=== PATIENT | male | born 1955 | race Caucasian/White ===

== ENCOUNTER 2018-11-14 10:29 | Observation (INO) ==
--- NOTE | 2018-11-14 11:06 | Emergency Department Note ---
Disposition Clinical Impression: History of COPD, Obesity, Hypercalcemia, Hypokalemia, Weakness, Renal insufficiency, CAD (coronary artery disease) Disposition: Admitted As Inpatient Forms: ED Satisfaction Letter General Adult HPI - General Chief complaint: ED Weakness Stated complaint: Multiple complaints Time Seen by Provider: 11/14/18 10:47 Source: patient, family Limitations: no limitations - History of Present Illness HPI Narrative: 63-year-old male reports emergency department with his , he states his home health providers recommended he come to the hospital for an evaluation and admission and rehabilitation. The patient states he has been weak for about 7 months. He wanted to go to a mcc prior after hospital discharge but not immediately and after attempting to gain admission to a mcc he reports there is a delay of up to 6-7 weeks. The patient denies any chest pain or acute shortness of breath. He has a history of nighttime oxygen usage. T here is no history of the doubt pain vomiting or acute diarrhea, he describes chronic diarrhea which is been present for 7 months. He reports a few days ago he had a blackened stool but none since. There is no history of vomiting of blood. No syncope. No confusion. No slurred speech or unilateral arm or leg weakness or numbness. No fevers back pain urinary symptoms or recent falls. There is no history of headache or unilateral arm or leg weakness or numbness. No slurred speech or facial drooping. The patient reports he is weak and feels he needs to go to a mcc. Pain Scale: 0 - Related Data Home Medications Medication Instructions Recorded Confirmed Allopurinol [Zyloprim] 300 mg PO 04/19/18 Aspirin 04/19/18 BuPROPion 04/19/18 Calcitriol 0.5 mcg PO 04/19/18 Cilostazol [Pletal] 100 mg PO BID 04/19/18 04/19/18 Dulera 100 Mcg/5 Mcg Inhaler 04/19/18 Ezetimibe [Zetia] 10 mg PO 04/19/18 Furosemide [Lasix] 80 mg PO 04/19/18 Gabapentin [Neurontin] 800 mg PO TID 04/19/18 04/19/18 Guaifenesin 04/19/18 Isosorbide MONOnitrate [Isosorbide 120 mg PO BID 04/19/18 04/19/18 Mononitrate ER] Loratadine 04/19/18 Lovastatin 04/19/18 Metoprolol 04/19/18 Mucinex 04/19/18 Multivit,Th Iron,Other Min 1 PO DAILY 04/19/18 [Therems-M] Multivitamins 04/19/18 Nitrostat 04/19/18 Nitrostat 04/19/18 Nystatin Cream 04/19/18 Omeprazole [PriLOSEC] 20 mg PO DAILY 04/19/18 04/19/18 Plavix 04/19/18 Potassium Chloride [Klor-Con] 04/19/18 Ranexa 04/19/18 Ropinirole HCl [Requip] 0.5 mg PO 04/19/18 Spironolactone 04/19/18 amLODIPine [Norvasc] 04/19/18 Allergies Allergy/AdvReac Type Severity Reaction Status Date / Time doxycycline AdvReac Nausea Verified 11/14/18 10:39 esomeprazole [From Nexium] AdvReac Nausea Verified 11/14/18 10:39 All systems ED: reviewed and negative except as stated. Past Medical History - Past Medical History Medical history: Reports: CHF, COPD, coronary artery disease, DVT, hype rlipidemia, hypertension, peripheral artery disease, renal disease Psychiatric history: Reports: anxiety, depression - Social History Smoking Status: Current every day smoker Smokeless Tobacco Status: No Alcohol use: Reports: none Drug use: Reports: none Physical Exam - General Limitations: no limitations General appearance: alert, in no apparent distress - Head Head exam: atraumatic, normocephalic, normal inspection - Eye Eye exam: Present: normal appearance, PERRL, EOMI - ENT ENT exam: normal exam, normal oropharynx, mucous membranes moist, TM's normal bilaterally, normal external ear exam - Neck Neck exam: Present: normal inspection, full ROM, trachea midline. Absent: tenderness - Chest Chest inspection: Present: symmetric chest wall rise. Absent: tenderness - Respiratory Respiratory exam: Present: prolonged expiratory phase. Absent: respiratory distress, wheezes - Cardiovascular Cardiovascular exam: Present: regular rate, normal rhythm, normal heart sounds - Abdominal Exam Abdominal exam: Present: soft, Non-Tender, normal bowel sounds. Absent: tenderness, distention, guarding, rebound, rigidity - Extremities Exam Extremities exam: Present: normal inspection, full ROM, normal capillary refill. Absent: tenderness, pedal edema, joint swelling, calf tenderness - Back Exam Back exam: Present: normal inspection, full ROM. Absent: tenderness, CVA tenderness (R), CVA tenderness (L), vertebral tenderness - Neurological Exam Neurological exam: Present: alert, oriented X3, CN II-XII intact. Absent: motor sensory deficit - Psychiatric Psychiatric exam: Present: normal affect, normal mood - Skin Skin exam: Present: warm, dry, intact, normal color Course Vital Signs Temperature 97.6 F 11/14/18 10:35 Pulse Rate 88 11/14/18 10:35 Respiratory Rate 22 11/14/18 10:35 Blood Pressure 108/78 11/14/18 10:35 O2 Sat by Pulse Oximetry 97 11/14/18 10:35 Temperature 97.6 F 11/14/18 10:52 Pulse Rate 79 11/14/18 13:11 Respiratory Rate 11 11/14/18 13:11 Blood Pressure 91/73 11/14/18 13:11 O2 Sat by Pulse Oximetry 100 11/14/18 13:11 Oxygen Delivery Oxygen Delivery Room Air Medical Decision Making - MDM Narrative Medical decision making narrative: The patient appears to be stable. He describes an inability to get out of bed and has been weak for the last 6 months. He tried to get into mcc prior but was unable. The patient has no hypocalcemia as well as hypokalemia and potential dehydration. He is currently stable. He prefers to be admitted to the hospital for rehabilitation and mcc placement. I discussed the case with the social media director on-call who reports the patient can be admitted to a mcc based on his insurance but will have to be admitted to the hospital for PT and OT consult first. The patient is highly agreeable. I consult with the hospitalist on-call who has accepted the patient to her care. - Lab Data Result diagrams: 11/14/18 11:30 11/14/18 11:30 Lab Results 11/14/18 11/14/18 11/14/18 Range/Units 11:30 11:30 12:15 WBC 8.7 (4.3-11.1) K/mcL RBC 4.94 (4.19-5.50) M/mcL Hgb 17.3 H (12.9-16.9) g/dL Hct 50.0 (37.5-50.1) % MCV 101.2 H (83.0-100.0) fL MCH 35.0 H (28.0-33.3) pg MCHC 34.6 (31.6-35.5) g/dL RDW 13.8 (11.5-14.5) % Plt Count 105 L (140-400) K/mcL MPV 10.4 (9.4-12.4) fL Immature Gran % 0.2 (0-4) % Seg Neutrophils % 53.1 % Lymphocytes % 34.4 % Monocytes % 9.1 % Eosinophils % 2.7 % Basophils % 0.5 % Neutrophils # 4.6 (1.6-8.9) K/mcL Lymphocytes # 3.0 (0.6-4.6) K/mcL Monocytes # 0.8 (0.0-1.3) K/mcL Eosinophils # 0.2 (0.0-0.6) K/mcL Basophils # 0.0 (0.0-0.2) K/mcL Sodium 136 (136-145) mEq/L Potassium 3.4 L (3.5-5.1) mEq/L Chloride 105 (98-107) mEq/L Carbon Dioxide 24 (23-29) mEq/L BUN 18 (8-23) mg/dL Creatinine 1.43 H (0.70-1.30) mg/dL Est GFR ( Amer) > 60 (> 60) Est GFR (Non-Af Amer) 50 L (> 60) BUN/Creatinine Ratio 13 (6-26) Glucose 124 H (70-105) mg/dL Calculated Osmolality 285 (280-300) Lactic Acid 2.2 (0.5-2.2) mmol/L Calcium 13.2 H* (8.6-10.3) mg/dL Magnesium 1.0 L (1.6-2.6) mg/dL Total Bilirubin 0.7 (0.3-1.0) mg/dL AST 18 (13-39) Units/L ALT 16 (7-52) Units/L Alkaline Phosphatase 121 H (34-104) Units/L Creatine Kinase 24 L (30-223) Units/L Troponin I < 0.03 (< 0.04) ng/mL Serum Total Protein 6.7 (6.4-8.9) g/dL Albumin 3.9 (3.5-5.7) g/dL Globulin 2.8 (2.4-3.5) g/dL Albumin/Globulin Ratio 1.4 (1.1-2.2)
[2018-11-14 11:49] LABS: Basophils % 0.5 %; Eosinophils # 0.2 K/mcL (0.0-0.6); Eosinophils % 2.7 %; Hemoglobin 17.3 g/dL (12.9-16.9); Immature Granulocytes % 0.2 % (0-4); Lymphocytes % 34.4 %; Mean Corpuscular HGB Conc 34.6 g/dL (31.6-35.5); Mean Corpuscular Volume 101.2 fL (83.0-100.0); Mean Platelet Volume 10.4 fL (9.4-12.4); Monocytes # 0.8 K/mcL (0.0-1.3); Monocytes % 9.1 %; Neutrophils # 4.6 K/mcL (1.6-8.9); Platelet Count 105 K/mcL (140-400); Red Blood Count 4.94 M/mcL (4.19-5.50); Red Cell Distribution Width 13.8 % (11.5-14.5); Segmented Neutrophils % 53.1 %
[2018-11-14 12:08] LABS: Troponin I < 0.03 ng/mL (< 0.04)
[2018-11-14 12:17] LABS: Alanine Aminotransferase 16 Units/L (7-52); Albumin 3.9 g/dL (3.5-5.7); Albumin/Globulin Ratio 1.4 (1.1-2.2); Alkaline Phosphatase 121 Units/L (34-104); Aspartate Amino Transferase 18 Units/L (13-39); BUN/Creatinine Ratio 13 (6-26); Bilirubin,Total 0.7 mg/dL (0.3-1.0); Blood Urea Nitrogen 18 mg/dL (8-23); Calcium 13.2 mg/dL (8.6-10.3); Carbon Dioxide 24 mEq/L (23-29); Chloride 105 mEq/L (98-107); Creatine Kinase 24 Units/L (30-223); Globulin 2.8 g/dL (2.4-3.5); Glucose 124 mg/dL (70-105); Osmolality,Calculated 285 (280-300); Potassium 3.4 mEq/L (3.5-5.1); Sodium 136 mEq/L (136-145); Total Protein 6.7 g/dL (6.4-8.9); eGFR For Non-African Americans 50 (> 60)
[2018-11-14] MEDS ORDERED: 0.9 % Sodium Chloride 1,000 ML IVC ONE (13:36)
--- NOTE | 2018-11-14 15:14 | Internal Med History&Physical ---
Date of Encounter: 11/14/18 Time of Encounter: 15:05 Internal Medicine - H&P: HPI Chief complaint: weakness Admitted From: Home Plans for Post Hospital Care: Transfer Snf Facility History of present illness: Mr. Baez is a 63 year old male who has history of Severe PAD, hypertension, gout,left foot presenting emergency room for multiple compliances of diarrhea for several months, productive of cough for weak, severe PAD with bilateral cold feet and hands for few years not a candidate for surgery. He was in [facility] they tried to discharge him to SNF, but he declined. he went home, has been homebound and bedbound over last few months. Now he agrees to go to rehabilitation, wants to be admitted to then go to rehabilitation. Otherwise he complains of diarrhea on and off for several months, 4-5 times daily but not every day. Denies abdominal pain. productive cough denies chest pain shortness of breath. He is on room air. And he is severe PAD bilateral cold feet and hands, But not a candidate for surgery per his vascular surgeon. The plan is admit to patient consult PTOT discharged to SNF. Past Med Surg Social Fam HX - Past Medical History Medical history: CHF, COPD, coronary artery disease, DVT, hyperlipidemia, hype rtension, peripheral artery disease, renal disease Additional medical history: Borderline DM, Polyneuropathy Psychiatric history: anxiety, depression - Past Surgical History Additional surgical history: LEft CEA, Triple vessel CABG, Cholecystectomy, Tonsillectomy, cataract removal, I/D left foot 02/21/2018 - Social History Smoking Status: Current every day smoker Smokeless Tobacco Status: No Alcohol use: none Drug use: none - Family History Father Adopted: No Family Member Ethnicity: Non- Living Status: Still Living Hx Family Cardiac Disorders: Yes Hx Family Respiratory Disorders: No Hx Family Cancer: No Hx Family GI Disorders: No Hx Family Endocrine Disorder: Yes Hx Family Neuromuscular Disorders: No Hx Family Neurologic Disorders: No Hx Family HEENT Disorders: No Hx Family Autoimmune Disorders: No Mother Adopted: No Family Member Ethnicity: Non- Living Status: Hx Family Cardiac Disorders: Yes Hx Family Respiratory Disorders: Yes Hx Family Cancer: No Hx Family GI Disorders: No Hx Family Endocrine Disorder: Yes Hx Family Neuromuscular Disorders: No Hx Family Neurologic Disorders: No Hx Family HEENT Disorders: No Hx Family Autoimmune Disorders: No Internal Medicine - H&P: Meds Allopurinol [Zyloprim] 300 mg PO 04/19/18 [History] Aspirin 04/19/18 [History] BuPROPion 04/19/18 [History] Calcitriol 0.5 mcg PO 04/19/18 [History] Cilostazol [Pletal] 100 mg PO BID 04/19/18 [History] Dulera 100 Mcg/5 Mcg Inhaler 04/19/18 [History] Ezetimibe [Zetia] 10 mg PO 04/19/18 [History] Furosemide [Lasix] 80 mg PO 04/19/18 [History] Gabapentin [Neurontin] 800 mg PO TID 04/19/18 [History] Guaifenesin 04/19/18 [History] Isosorbide MONOnitrate [Isosorbide Mononitrate ER] 120 mg PO BID 04/19/18 [History] Loratadine 04/19/18 [History] Lovastatin 04/19/18 [History] Metoprolol 04/19/18 [History] Mucinex 04/19/18 [History] Multivit,Th Iron,Other Min [Therems-M] 1 PO DAILY 04/19/18 [History] Multivitamins 04/19/18 [History] Nitrostat 04/19/18 [History] Nitrostat 04/19/18 [History] Nystatin Cream 04/19/18 [History] Omeprazole [PriLOSEC] 20 mg PO DAILY 04/19/18 [History] Plavix 04/19/18 [History] Potassium Chloride [Klor-Con] 04/19/18 [History] Ranexa 04/19/18 [History] Ropinirole HCl [Requip] 0.5 mg PO 04/19/18 [History] Spironolactone 04/19/18 [History] amLODIPine [Norvasc] 04/19/18 [History] Allergy/AdvReac Type Severity Reaction Status Date / Time doxycycline AdvReac Nausea Verified 11/14/18 10:39 esomeprazole [From Nexium] AdvReac Nausea Verified 11/14/18 10:39 All Systems PM: A 10-system review of systems was performed and is negative for pertinent findings except as documented above in the HPI. - Constitutional Vitals: Temp Pulse Resp BP Pulse Ox 97.6 F 70 16 122/90 94 11/14/18 10:52 11/14/18 13:52 11/14/18 13:52 11/14/18 13:52 11/14/18 13:52 General appearance: Present: A&O X 3, pleasant, obese Exam: CONSTITUTIONAL: Patient appears as an age appropriate male well developed, in no acute distress. EYES Clear sclerae, bilateral pupils are equal, reactive to light and accommodation. Extraocular movements are intact RESPIRATORY: No accessory muscle use, bilateral clear to auscultation, no wheezing, no crackles/rales. CARDIOVASCULAR: Regular heart rate, normal S1 and S2, no murmurs GASTROINTESTINAL: bowel sounds present, soft, no tenderness. No hepatosplenomeg marylou. No bilateral CVA tenderness MUSCULOSKELETAL: Joints in normal range of motion, no clubbing, no edema, no cyanosis. Bilateral peripheral pulses 2+ LYMPHATIC no lymphadenopathy in neck, groin and axilla bilaterally, no thyromegaly. NEUROLOGIC: CN II to XII are grossly intact, no focal neurological deficit. Deep tendon reflexes 2+ bilaterally. Normal light touch sensation to upper and lower extremity PSYCHIATRIC: Oriented x3, with good insight, mood is euthymic. No hallucinations or delusions. SKIN: Skin warm and dry, no rashes, small open wound to left foot Internal Med - H&P Results - Labs CBC & Chem 7: 11/14/18 11:30 11/14/18 11:30 Labs: Short CBC 11/14/18 Range/Units 11:30 WBC 8.7 (4.3-11.1) K/mcL Hgb 17.3 H (12.9-16.9) g/dL Hct 50.0 (37.5-50.1) % Plt Count 105 L (140-400) K/mcL Neutrophils # 4.6 (1.6-8.9) K/mcL BMP 11/14/18 11:30 Sodium 136 Potassium 3.4 L Chloride 105 Carbon Dioxide 24 BUN 18 Creatinine 1.43 H Glucose 124 H Calcium 13.2 H* Cardiac Enzymes 11/14/18 Range/Units 11:30 Troponin I < 0.03 (< 0.04) ng/mL Liver Function 11/14/18 Range/Units 11:30 Total Bilirubin 0.7 (0.3-1.0) mg/dL AST 18 (13-39) Units/L ALT 16 (7-52) Units/L Alkaline Phosphatase 121 H (34-104) Units/L Albumin 3.9 (3.5-5.7) g/dL - Impressions ITS Impressions Chest X-Ray 11/14/18 10:49 IMPRESSION: 1. No active pulmonary disease. D/ / Brigido Blair MD / Brigido Blair MD Interpreting Provider: Brigido Blair MD Head CT 11/14/18 10:50 IMPRESSION: 1. No acute intracranial abnormality. 2. Mild white matter hypoattenuation likely the sequela of chronic small vessel ischemia. 3. If there is clinical concern for acute ischemia, MRI would be the more sensitive modality. D/ / Jerome Raman / Jerome Raman Interpreting Provider: Jerome Raman - Assessment and plan (1) Weakness Current Visit: Yes Status: Acute Assessment and plan: conuslt pT and OT for SNF (2) Chronic diarrhea Current Visit: Yes Status: Chronic Assessment and plan: Patient has chronic diarrhea for several months on and off 4-5 times daily. But not every day, he denies any weight loss. We will check stool C. difficile and culture (3) Cough Current Visit: Yes Status: Acute Assessment and plan: productive cough, nit negative CXR (4) Hypercalcemia Current Visit: Yes Status: Acute Assessment and plan: will check PTH, IVF, follow up AM (5) PAD (peripheral artery disease) Current Visit: Yes Status: Acute Assessment and plan: severe PAD with cold feet and hands, continue cilostazil (6) History of COPD Current Visit: Yes Status: Acute Assessment and plan: current smoking, not on home O2 (7) Hypokalemia Current Visit: Yes Status: Acute Assessment and plan: will replace (8) CAD (coronary artery disease) Current Visit: Yes Status: Acute Assessment and plan: Continue ASA, STATIN Qualifiers: Coronary Disease-Associated Artery/Lesion type: [place] artery [place] vs. transplanted heart: [place] heart Associated angina: without angina Qualified Code(s): I25.10 - Atherosclerotic heart disease of [place] coronary artery without angina pectoris (9) CKD (chronic kidney disease) stage 3, GFR 30-59 ml/min Current Visit: Yes Status: Acute Assessment and plan: CK D stages 3 kidney function stable, avoid nephrotoxin (10) Hypertension Current Visit: Yes Status: Acute Assessment and plan: Continue home meds Qualifiers: Hypertension type: essential hypertension Qualified Code(s): I10 - Essential (primary) hypertension (11) Smoker Current Visit: Yes Status: Acute Assessment and plan: He smokes one pack a day smoking cessation discussed (12) Morbid obesity with BMI of 50.0-59.9, adult Current Visit: Yes Status: Acute - Time Spent With Patient Total time spent is greater than 50% in coordination of care (as documented) at patient's floor/unit and/or counseling patient:
[2018-11-14] MEDS ORDERED: Naloxone 0.4 MG/ML INJ IVP PRN (15:28)
[2018-11-14] MEDS ORDERED: Gabapentin 400 MG CAPSULE PO PRN (21:20)
--- NOTE | 2018-11-14 21:29 | Electrocardiograph Report ---
[facility] Test Date: 2018-11-14 Pat Name: Garcia Baez Department: EXAM4 Room: 3B13 Gender: M [employer]er: : 1955 Requested By: Elais Cavanaugh Order Number: [id number] Reading MD: Alan Stafford Measurements Intervals Tad Rate: 84 P: -38 [place]: 183 QRS: -32 QRSD: 87 T: 78 QT: 348 QTc: 412 Interpretive Statements Sinus rhythm Left axis deviation Electronically Signed On 11-14-2018 21:27:12 EST by Alan Stafford
[2018-11-14] MEDS ORDERED: Gabapentin 400 MG CAPSULE PO ONE ×2 (21:35→21:45)
[2018-11-14] MEDS: Nicotine 7 MG PATCH.TD24 TD SCH (21:59)
[2018-11-14] MEDS: Ranolazine 500 MG TAB.ER.12H PO SCH (21:59)
[2018-11-14] MEDS: 0.9 % Sodium Chloride 1,000 ML IVC SCH (22:00)
[2018-11-14 22:08] LABS: Bilirubin,Urine Negative (Negative); Blood,Urine Trace (Negative); Clarity,Urine Cloudy (Clear); Color,Urine Yellow (Yellow); Glucose,Urine (UA) Normal (Normal); Ketones,Urine Negative (Negative); Leukocyte Esterase,Urine Large (Negative); Nitrite,Urine Negative (Negative); Protein,Urine Trace mg/dL (Neg-Trace); Specific Gravity,Urine 1.009 (1.010-1.025); Urobilinogen,Urine Normal (Normal)
[2018-11-14 22:11] LABS: Bacteria,Urine Many per hpf (None-Few); Hyaline Casts,Urine None Seen per lpf (None-Few); Squamous Epithelial Cell,Urine None Seen per lpf (None-Few); WBC,Urine TNTC per hpf (0-3)
[2018-11-15 05:05] LABS: Basophils % 0.3 %; Eosinophils # 0.2 K/mcL (0.0-0.6); Eosinophils % 3.8 %; Hematocrit 44.1 % (37.5-50.1); Immature Granulocytes % 0.2 % (0-4); Lymphocytes # 2.3 K/mcL (0.6-4.6); Lymphocytes % 39.5 %; Mean Corpuscular HGB Conc 34.9 g/dL (31.6-35.5); Mean Corpuscular Hemoglobin 35.5 pg (28.0-33.3); Mean Corpuscular Volume 101.6 fL (83.0-100.0); Mean Platelet Volume 10.4 fL (9.4-12.4); Monocytes # 0.5 K/mcL (0.0-1.3); Neutrophils # 2.8 K/mcL (1.6-8.9); Red Blood Count 4.34 M/mcL (4.19-5.50); Red Cell Distribution Width 13.9 % (11.5-14.5); Segmented Neutrophils % 48.2 %
[2018-11-15 05:06] LABS: Hemoglobin 15.4 g/dL (12.9-16.9); Platelet Count 79 K/mcL (140-400)
[2018-11-15 05:25] LABS: BUN/Creatinine Ratio 13 (6-26); Blood Urea Nitrogen 18 mg/dL (8-23); Calcium 11.9 mg/dL (8.6-10.3); Carbon Dioxide 23 mEq/L (23-29); Chloride 107 mEq/L (98-107); Glucose 104 mg/dL (70-105); Osmolality,Calculated 286 (280-300); Potassium 3.2 mEq/L (3.5-5.1); Sodium 137 mEq/L (136-145); eGFR For Non-African Americans 52 (> 60)
[2018-11-15] MEDS: Nicotine 7 MG PATCH.TD24 TD SCH (09:15)
[2018-11-15] MEDS: Ranolazine 500 MG TAB.ER.12H PO SCH ×2 (09:15→20:25)
[2018-11-15] MEDS ORDERED: Ipratropium/Albuterol Neb 3 ML IH PRN (09:58)
--- NOTE | 2018-11-15 11:00 | Internal Med Progress Note ---
<Fatemeh Lester P - Last Filed: 11/15/18 16:22> Hospitalist Progress Note - Encounter Date of Encounter: 11/15/18 Time of Encounter: 08:30 - Subjective Interval History: 63 year old male who has history of hypertension, gout,left foot presenting emergency room for multiple compliances of diarrhea for several months, producti ve of cough for weak, severe PAD with bilateral cold feet and hands. Patient has had diarrhea on and off for last 7 month and he he has had loses stool for 5 times in a day. The patient has history of COPD and he is a chronic smoker, he has productive cough with chest tightness and slight shortness of breath. The the patient wants to go to care home facility after discharge. X-ray chest:No active pulmonary disease. CT head:No acute intracranial abnormality. Labs at ED: White cell count normal, potassium was 3.2, BUN 18 and creatinine 1.39, GFR 52, calcium 11.9. UrinALYSIS suggestive of infection, culture awaited During my bedside visit today, the patient was lying comfortably on the bed, was awake alert, not in acute distress, vitals where stable. He admitted cough and shortness of breath with chest tightness. He has had diarrhea before but he does not have any bowel movement today. He is on 3 L oxygen saturation 96%. ` - Exam Vitals: Temp Pulse Resp BP Pulse Ox 97.6 F 69 19 112/73 96 11/15/18 08:48 11/15/18 08:48 11/15/18 08:48 11/15/18 08:48 11/15/18 08:48 Exam: CONSTITUTIONAL: Patient appears as an age appropriate male well developed, in no acute distress. EYES Clear sclerae, bilateral pupils are equal, reactive to light and accommodation. Extraocular movements are intact RESPIRATORY: No accessory muscle use, bilateral clear to auscultation, the patient has expiratory wheezing. CARDIOVASCULAR: Regular heart rate, normal S1 and S2, no murmurs GASTROINTESTINAL: bowel sounds present, soft, no tenderness. No hepatosplenomegaly. No bilateral CVA tenderness MUSCULOSKELETAL: Joints in normal range of motion, no clubbing, no edema, no cyanosis. Bilateral peripheral pulses 2+ LYMPHATIC no lymphadenopathy in neck, groin and axilla bilaterally, no thyromegaly. NEUROLOGIC: CN II to XII are grossly intact, no focal neurological deficit. Deep tendon reflexes 2+ bilaterally. Normal light touch sensation to upper and lower extremity PSYCHIATRIC: Oriented x3, with good insight, mood is euthymic. No hallucinations or delusions. SKIN: Skin warm and dry, no rashes, small open wound to left foot - Assessment and Plan (1) COPD (chronic obstructive pulmonary disease) Current Visit: Yes Status: Acute Assessment and Plan: Patient is chronic patient of COPD with night time oxygen occasionally , he has tightness in chest with SOB and productive cough he is also a chronic smoker He is on oxygen 3L with sat 96% , he is on DuoNeb nebulizer and albuterol inhaler Progressively better than before. (2) Hypercalcemia Current Visit: Yes Status: Acute Assessment and Plan: The patient has elevated serum calcium, it was 13.2 and now 11.9, It may be due to chronic kidney disease, immobility due to multiple commodities we will check PTH level, recheck serum Calcium tomorrow , continue IV hydration. (3) CKD (chronic kidney disease) Current Visit: Yes Status: Acute Assessment and Plan: The patient is chronic patient of COPD stage III His BUN is 19 and creatinine 1.39 We have consulted repossession agent and put on hold for nephrotoxic medication (4) Frequent loose stools Current Visit: Yes Status: Acute Assessment and Plan: The patient has history of diarrhea/loses stool for 4-5 times daily plus seven- months. He denies any history of wt loss, we will review stool report. Today he doesn't have loose motion. (5) Hypokalemia Current Visit: Yes Status: Acute Assessment and Plan: The patient serum potassium level is 3.2, we have put on potassium suplementation. (6) Weakness Current Visit: Yes Status: Acute Assessment and Plan: The patient has history of generalized weakness, without weight loss. He does have frequent loose stool for a few month. The weakness might be due to persistent loose stool and nutritional & multiple comorbidities. We will re- assess while he is n in patient. We have consulted PT & OT (7) Smoker Current Visit: Yes Status: Acute Assessment and Plan: Chronic smoker, On nicotine patch , counselled quitting smoking (8) Obesity Current Visit: Yes Status: Acute Assessment and Plan: high body weight with BMI 41.3, counselling for weight reduction ,diet and exercise. - Time Spent with Patient Total time spent is greater than 50% in coordination of care (as documented) at patient's floor/unit and/or counseling patient: Internal Medicine: Result - Labs CBC & Chem 7: 11/15/18 04:36 11/15/18 04:36 Labs: Short CBC 11/14/18 11/15/18 Range/Units 11:30 04:36 WBC 8.7 5.9 (4.3-11.1) K/mcL Hgb 17.3 H 15.4 D (12.9-16.9) g/dL Hct 50.0 44.1 (37.5-50.1) % Plt Count 105 L 79 L (140-400) K/mcL Neutrophils # 4.6 2.8 (1.6-8.9) K/mcL BMP 11/14/18 11/15/18 11:30 04:36 Sodium 136 137 Potassium 3.4 L 3.2 L Chloride 105 107 Carbon Dioxide 24 23 BUN 18 18 Creatinine 1.43 H 1.39 H Glucose 124 H 104 Calcium 13.2 H* 11.9 H Cardiac Enzymes 11/14/18 Range/Units 11:30 Troponin I < 0.03 (< 0.04) ng/mL Liver Function 11/14/18 Range/Units 11:30 Total Bilirubin 0.7 (0.3-1.0) mg/dL AST 18 (13-39) Units/L ALT 16 (7-52) Units/L Alkaline Phosphatase 121 H (34-104) Units/L Albumin 3.9 (3.5-5.7) g/dL Urine 11/14/18 Range/Units 21:50 Urine Color Yellow (Yellow) Urine Clarity Cloudy A (Clear) Urine pH 6.0 (5.0-8.0) pH Units Ur Specific [place] 1.009 L (1.010-1.025) Urine Protein Trace (Neg-Trace) mg/dL Urine Glucose (UA) Normal (Normal) mg/dL - Impressions Impressions Chest X-Ray 11/14/18 10:49 IMPRESSION: 1. No active pulmonary disease. D/ / Brigido Blair MD / Brigido Blair MD Interpreting Provider: Brigido Blair MD Head CT 11/14/18 10:50 IMPRESSION: 1. No acute intracranial abnormality. 2. Mild white matter hypoattenuation likely the sequela of chronic small vessel ischemia. 3. If there is clinical concern for acute ischemia, MRI would be the more sensitive modality. D/ / Jerome Raman / Jerome Raman Interpreting Provider: Jerome Raman Consult Discharge Plan - Plan Referrals: Neli Hoover, SAFETY SEALER [Primary Care Provider] - <Jamari Munguia - Last Filed: 11/15/18 16:43> Hospitalist Progress Note - Encounter Date of Encounter: 11/15/18 - Exam Vitals: Temp Pulse Resp BP Pulse Ox 97.3 F L 74 16 107/76 96 11/15/18 11:55 11/15/18 11:55 11/15/18 11:55 11/15/18 11:55 11/15/18 11:55 - Time Spent with Patient Total time spent is greater than 50% in coordination of care (as documented) at patient's floor/unit and/or counseling patient: Internal Medicine: Result - Labs CBC & Chem 7: 11/15/18 04:36 11/15/18 04:36 Labs: Short CBC 11/15/18 Range/Units 04:36 WBC 5.9 (4.3-11.1) K/mcL Hgb 15.4 D (12.9-16.9) g/dL Hct 44.1 (37.5-50.1) % Plt Count 79 L (140-400) K/mcL Neutrophils # 2.8 (1.6-8.9) K/mcL BMP 11/15/18 04:36 Sodium 137 Potassium 3.2 L Chloride 107 Carbon Dioxide 23 BUN 18 Creatinine 1.39 H Glucose 104 Calcium 11.9 H Urine 11/14/18 Range/Units 21:50 Urine Color Yellow (Yellow) Urine Clarity Cloudy A (Clear) Urine pH 6.0 (5.0-8.0) pH Units Ur Specific [place] 1.009 L (1.010-1.025) Urine Protein Trace (Neg-Trace) mg/dL Urine Glucose (UA) Normal (Normal) mg/dL - Attending Attestation I examined this patient and my medical decision-making was reviewed with the Resident Physician Dr. Gilbert. I agree with the documented findings, disposition and treatment plan as described except to the extent set forth below. Mr. Baez is a 63 year old male who has history of Severe PAD, hypertension, gout,left foot presenting emergency room for multiple compliances of diarrhea for several months, productive of cough for weak, severe PAD with bilateral cold feet and hands for few years not a candidate for surgery. He happened to have hypercalcemia with Ca @ 13.2 He denied any CP / SOB. Still feels weak and lethargic. Gen: A, Ao x3 Chest: Diminished BS b/l Heart: S1S2+ RRR No murmurs a/p 1. Acute hypercalcemia mostly due to dehydration and CKD-3 Cont IVF PTH - Normal will check TSH, Vit D 1-25 OH, SPEP and UPEP Nephro consulted 2. Severe PAD resumed all home meds
[2018-11-15] MEDS: Gabapentin 400 MG CAPSULE PO SCH ×4 (11:47→20:26)
[2018-11-15] MEDS: Isosorbide MONOnitrate (24 HR) 60 MG TAB.ER.24H PO SCH ×2 (12:47→20:25)
[2018-11-15] MEDS: Aspirin 325 MG TABLET PO SCH (14:26)
[2018-11-15] MEDS: Metoprolol XL (24 HR) Succ 50 MG TAB.ER.24H PO SCH ×2 (14:26→20:27)
[2018-11-15] MEDS: 0.9 % Sodium Chloride 1,000 ML IVC SCH (14:27)
[2018-11-15] MEDS ORDERED: Furosemide 40 MG TABLET PO SCH (17:00)
[2018-11-15] MEDS ORDERED: Metoprolol XL (24 HR) Succ 50 MG TAB.ER.24H PO SCH (21:00)
[2018-11-15] MEDS ORDERED: Isosorbide MONOnitrate (24 HR) 60 MG TAB.ER.24H PO SCH (21:00)
[2018-11-15] MEDS ORDERED: rOPINIRole 0.25 MG TABLET PO SCH (21:00)
[2018-11-16 04:30] LABS: BUN/Creatinine Ratio 15 (6-26); Blood Urea Nitrogen 18 mg/dL (8-23); Calcium 11.2 mg/dL (8.6-10.3); Carbon Dioxide 23 mEq/L (23-29); Chloride 109 mEq/L (98-107); Creatine Kinase 21 Units/L (30-223); Glucose 92 mg/dL (70-105); Osmolality,Calculated 286 (280-300); Potassium 3.6 mEq/L (3.5-5.1); Sodium 137 mEq/L (136-145); eGFR For Non-African Americans 59 (> 60)
[2018-11-16 04:31] LABS: BUN/Creatinine Ratio 15 (6-26); Blood Urea Nitrogen 18 mg/dL (8-23); Calcium 11.1 mg/dL (8.6-10.3); Carbon Dioxide 22 mEq/L (23-29); Chloride 110 mEq/L (98-107); Glucose 91 mg/dL (70-105); Osmolality,Calculated 285 (280-300); Phosphorous 2.3 mg/dL (2.7-4.5); Potassium 3.6 mEq/L (3.5-5.1); Sodium 137 mEq/L (136-145); eGFR For Non-African Americans > 60 (> 60)
[2018-11-16] MEDS: 0.9 % Sodium Chloride 1,000 ML IVC SCH (05:07)
[2018-11-16] MEDS ORDERED: (Ezetimibe [Ezetimibe] 10 MG) PO SCH (09:00)
[2018-11-16] MEDS ORDERED: (Fluticasone/Vilanterol [Breo Ellipta 200-25 Mcg Inh] IH SCH (09:00)
[2018-11-16] MEDS ORDERED: Spironolactone 25 MG TABLET PO SCH (09:00)
[2018-11-16] MEDS ORDERED: Aspirin 325 MG TABLET PO SCH (09:00)
[2018-11-16] MEDS: Ranolazine 500 MG TAB.ER.12H PO SCH (09:16)
[2018-11-16] MEDS: Isosorbide MONOnitrate (24 HR) 60 MG TAB.ER.24H PO SCH (09:16)
[2018-11-16] MEDS: Aspirin 325 MG TABLET PO SCH (09:17)
[2018-11-16] MEDS: Metoprolol XL (24 HR) Succ 50 MG TAB.ER.24H PO SCH (09:17)
[2018-11-16] MEDS: Gabapentin 400 MG CAPSULE PO SCH ×2 (09:17→14:05)
[2018-11-16] MEDS: Nicotine 7 MG PATCH.TD24 TD SCH (09:17)
--- NOTE | 2018-11-16 10:56 | Discharge Summary ---
<Fatemeh Lester P - Last Filed: 11/16/18 16:21> - NOTES TO OUTPATIENT PROVIDER Notes to Outpatient Provider: *The patient was follow-up with his primary care provider within a week. Orders not resulted at time of discharge: Pending orders 11/14/18 11:30 Culture,Blood [BC] Stat 11/14/18 21:50 Culture,Stool [RM] Routine Culture,Urine [RM] Stat 11/16/18 03:54 Parathormone Related Peptide AM 0400 Protein Electrophoresis AM 0400 Vitamin D 1,25 Dihydroxy AM 0400 Vitamin D 25 Hydroxy AM 0400 11/16/18 10:04 Magnesium Routine Date of Encounter: 11/16/18 Time of Encounter: 10:00 - Discharge Diagnosis (1) COPD (chronic obstructive pulmonary disease) Priority: Primary Status: Chronic Qualifiers: Chronic bronchitis type: unspecified Qualified Code(s): J42 - Unspecified chronic bronchitis (2) Hypercalcemia Priority: Primary Status: Acute (3) UTI (urinary tract infection) Priority: Primary Status: Acute Assessment and Plan: The patient urinalysis was suggestive of Urinary tract infection , Urine culture showed Ecoli We have given him Oral Kflex 500 TID X 5 days. Qualifiers: Urinary tract infection type: acute cystitis Hematuria presence: without hematuria Qualified Code(s): N30.00 - Acute cystitis without hematuria (4) CKD (chronic kidney disease) Priority: Primary Status: Chronic Qualifiers: Qualified Code(s): N18.9 - Chronic kidney disease, unspecified (5) Frequent loose stools Priority: Primary Status: Acute Qualifiers: Diarrhea type: unspecified type Qualified Code(s): R19.7 - Diarrhea, unspecified (6) Hypokalemia Priority: Primary Status: Resolved (7) Weakness Priority: Primary Status: Acute (8) Smoker Priority: Primary Status: Chronic (9) Obesity Priority: Secondary Status: Chronic Qualifiers: Body mass index: BMI 40.0-44.9 Qualified Code(s): E66.01 - Morbid (severe) obesity due to excess calories; Z68.41 - Body mass index (BMI) 40.0-44.9, adult (10) Hypophosphatemia Priority: Primary Status: Acute (11) Hypomagnesemia Priority: Primary Status: Acute Hospital course: Mr. Baez is a 63 year old male with past medical history of hypertension, gout, COPD,obesity, hyperlipidemia, peripheral arterial disease, renal disease, CHF, CAD presented to ED for multiple complaints;loose stool without blood on and off for last 7 month and he has had loose stools for 5 times in a day, productive cough with scanty whitish sputum with chest tightness and shortness of breath ,feeling week and difficulty in ambulating . X-ray chest done in ED didnot show any active pulmonary disease. CT head done in ED didn't show any acute intracranial abnormality. Labs done at ED: Low potassium was 3.2, BUN 18 and creatinine 1.39, GFR 52, calcium 11.9 ,magnesium 1.0, Phosphorus 2.3 <TSH 1.006, PTH intact 12.8 . The patient was admitted for close monitoring and further workup. The patient was treated with IV fluids, potassium supplementation, phosphorus and magnesium supplementation, oxygen and nebulization. PT ,OT and social science research assistant has been involved for the patient care while he was in hospital. The patient has been better, vitals are stable, he does not have new complaints.He doesn't have loose stool now ,he stated that his weakness has been better than before. His potassium has been normalized: 3.6, his renal function has been improved, creatinine 1.1 and BUN 18 GFR > 60, his saturation 95% with 2 L oxygen. The patient wants to go to assisted after discharge from this hospital . We are discharging him today so that he will follow-up with his primary care provider within a week. - Time Spent with Patient Total time spent providing and/or coordinating discharge services: - Discharge Medications Prescriptions: Cephalexin [Keflex] 500 mg PO TID #15 capsule Home Medications: RX: Albuterol Sulfate [Ventolin Hfa] 2 puff IH BID 11/14/18 [History] RX: Allopurinol [Zyloprim 300 MG] 300 mg PO DAILY 11/14/18 [History] RX: Aspirin 325 mg PO DAILY 11/14/18 [History] RX: BuPROPion [Wellbutrin] 100 mg PO DAILY 11/14/18 [History] RX: Calcitriol 0.5 mcg PO BID 11/14/18 [History] RX: Cilostazol [Pletal] 100 mg PO BID 11/14/18 [History] RX: Clobetasol Propionate 0.05% [Temovate] 1 appl TP DAILY PRN 11/14/18 [History] RX: Clopidogrel [Plavix] 75 mg PO DAILY 11/14/18 [History] RX: Ezetimibe 10 mg PO DAILY 11/14/18 [History] RX: Fluticasone/Vilanterol [Breo Ellipta 200-25 Mcg INH] 1 puff IH DAILY 11/14/18 [History] RX: Fluticasone/Vilanterol [Breo Ellipta 200-25 Mcg INH] 1 puff IH DAILY 11/14/18 [History] RX: Furosemide [Lasix] 80 mg PO BID 11/14/18 [History] RX: Gabapentin [Neurontin] 800 mg PO QID 11/14/18 [History] RX: Ipratropium/Albuterol Neb [Duoneb] 3 ml IH Q6HR PRN 11/14/18 [History] RX: Isosorbide MONOnitrate [Isosorbide Mononitrate ER] 120 mg PO BID 11/14/18 [History] RX: Lovastatin 40 mg PO DAILY 11/14/18 [History] RX: Metoprolol Succinate [Toprol Xl] 100 mg PO BID 11/14/18 [History] RX: Multivit,Th Iron,Other Min [Therems-M] 1 tab PO DAILY 11/14/18 [History] RX: Nitroglycerin [Nitrostat] 0.4 mg SL AD PRN 11/14/18 [History] RX: Nystatin POWDER [Nystop] 1 appl TP BID PRN 11/14/18 [History] RX: Omeprazole [PriLOSEC] 20 mg PO DAILY 11/14/18 [History] RX: Potassium Chloride 20 meq PO BID 11/14/18 [History] RX: Ranolazine [Ranexa] 500 mg PO BID 11/14/18 [History] RX: Ropinirole HCl [Requip] 0.5 mg PO HS 11/14/18 [History] RX: Spironolactone [Aldactone] 25 mg PO DAILY 11/14/18 [History] Cephalexin [Keflex] 500 mg PO TID #15 capsule 11/16/18 [Rx] Allergies/Adverse Reactions: Allergy/AdvReac Type Severity Reaction Status Date / Time doxycycline AdvReac Nausea Verified 11/14/18 10:39 esomeprazole [From Nexium] AdvReac Nausea Verified 11/14/18 10:39 Date of admission: 11/14/18 14:12 Primary care physician: Neli Hoover CNP Consults: 11/14/18 15:30 Consult to Occupational Therapy [CONS] Routine Comment: Evaluate, develop and implement POC Reason for Consult: weakness Does patient have active BEDREST order?: No Is patient medically & hemodynamically stable?: Yes Patient assessed for mobility or mobilized this visit?: Yes Consult to Physical Therapy [CONS] Routine Comment: Evaluate, develop and implement POC Reason for Consult: weakness Does patient have active BEDREST order?: No Is patient medically & hemodynamically stable?: Yes Patient assessed for mobility or mobilized this visit?: Yes 11/14/18 17:52 Consult to Certified Coder [CONS] Routine Reason for SW Consult: placement for rehab 11/15/18 11:32 Consult to Nephrology [CONS] Routine Consulting Provider: Kidney Tata/BARBARA/JOS/RALPH Reason for Consult: Hypercalcemia Time Notified: 11:32 Call Completed: Yes - Constitutional Vitals: Temp Pulse Resp BP Pulse Ox 97.9 F 60 18 93/61 95 11/16/18 08:50 11/16/18 08:50 11/16/18 08:50 11/16/18 08:50 11/16/18 08:50 General appearance: Present: A&O X 3, pleasant, no acute distress, obese, answers questions appropriately Exam: CONSTITUTIONAL: Patient appears as an age appropriate male well developed, in no acute distress. EYES Clear sclerae, bilateral pupils are equal, reactive to light and accommodation. Extraocular movements are intact RESPIRATORY: No accessory muscle use, bilateral clear to auscultation, the patient has expiratory wheezing. CARDIOVASCULAR: Regular heart rate, normal S1 and S2, no murmurs GASTROINTESTINAL: bowel sounds present, soft, no tenderness. No hepatosplenomegaly. No bilateral CVA tenderness MUSCULOSKELETAL: Joints in normal range of motion, no clubbing, no edema, no cyanosis. Bilateral peripheral pulses 2+ LYMPHATIC no lymphadenopathy in neck, groin and axilla bilaterally, no thyromegaly. NEUROLOGIC: CN II to XII are grossly intact, no focal neurological deficit. Deep tendon reflexes 2+ bilaterally. Normal light touch sensation to upper and lower extremity PSYCHIATRIC: Oriented x3, with good insight, mood is euthymic. No hallucinations or delusions. SKIN: Skin warm and dry, no rashes, small open wound to left foot - Patient Status Disposition: Transfer SNF Condition: Good Overall status at discharge: patient is progressing back to baseline - Discharge Instructions Follow Up With: Neli Hoover CNP [Primary Care Provider] - 11/22/18 1:00 pm <Jamari Munguia - Last Filed: 11/16/18 16:37> Orders not resulted at time of discharge: Pending orders 11/14/18 11:30 Culture,Blood [BC] Stat 11/14/18 21:50 Culture,Stool [RM] Routine Culture,Urine [RM] Stat 11/16/18 03:54 Parathormone Related Peptide AM 0400 Protein Electrophoresis AM 0400 Vitamin D 1,25 Dihydroxy AM 0400 Vitamin D 25 Hydroxy AM 0400 11/16/18 10:04 Magnesium Routine Date of Encounter: 11/16/18 Hospital course: Mr. Baez is a 63 year old male - Time Spent with Patient Total time spent providing and/or coordinating discharge services: Date of admission: 11/14/18 14:12 Primary care physician: Neli Hoover CNP Consults: 11/14/18 15:30 Consult to Occupational Therapy [CONS] Routine Comment: Evaluate, develop and implement POC Reason for Consult: weakness Does patient have active BEDREST order?: No Is patient medically & hemodynamically stable?: Yes Patient assessed for mobility or mobilized this visit?: Yes Consult to Physical Therapy [CONS] Routine Comment: Evaluate, develop and implement POC Reason for Consult: weakness Does patient have active BEDREST order?: No Is patient medically & hemodynamically stable?: Yes Patient assessed for mobility or mobilized this visit?: Yes 11/14/18 17:52 Consult to Certified Coder [CONS] Routine Reason for SW Consult: placement for rehab 11/15/18 11:32 Consult to Nephrology [CONS] Routine Consulting Provider: Kidney Tata/BARBARA/JOS/RALPH Reason for Consult: Hypercalcemia Time Notified: 11:32 Call Completed: Yes - Constitutional Vitals: Temp Pulse Resp BP Pulse Ox 97.8 F 53 18 98/56 95 11/16/18 11:42 11/16/18 11:42 11/16/18 11:55 11/16/18 11:42 11/16/18 11:55 - Attending Attestation I examined this patient and my medical decision-making was reviewed with the Resident Physician Dr. Gilbert. I agree with the documented findings, disposition and treatment plan as described except to the extent set forth below. Mr. Baez is a 63 year old male who has history of Severe PAD, hypertension, gout,left foot presenting emergency room for multiple compliances of diarrhea for several months, productive of cough for weak, severe PAD with bilateral cold feet and hands for few years not a candidate for surgery. He happened to have hypercalcemia with Ca @ 13.2 He denied any CP / SOB. Patient stated he is feeling better today. Gen: A, Ao x3 Chest: Diminished BS b/l Heart: S1S2+ RRR No murmurs a/p 1. Acute hypercalcemia mostly due to dehydration and CKD-3 PTH - Normal appreciate nephrology recommendations need to follow with data warehousing engineer outpatient 2. Severe PAD resumed all home meds 3. Acute UTI - G-ve rods on Keflex PO Addendum entered and electronically signed by Fatemeh Lester 11/16/18 16:42:
[2018-11-16 11:48] VITALS: BP 98/56
--- NOTE | 2018-11-16 12:19 | Physician Discharge Referral ---
ExtendedCare Referral Info Institutional Level of Care: Skilled - Diagnosis (1) COPD (chronic obstructive pulmonary disease) Priority: Primary Status: Chronic (2) Hypercalcemia Priority: Primary Status: Acute (3) CKD (chronic kidney disease) Priority: Secondary Status: Chronic (4) Frequent loose stools Priority: Primary Status: Acute (5) Hypokalemia Priority: Primary Status: Resolved (6) Weakness Priority: Primary Status: Acute (7) Smoker Priority: Primary Status: Chronic (8) Obesity Priority: Primary Status: Chronic (9) Hypophosphatemia Priority: Primary Status: Acute (10) Hypomagnesemia Priority: Primary Status: Acute - Transfer Medications Home Medications: Albuterol Sulfate [Ventolin Hfa] 2 puff IH BID 11/14/18 [History] Allopurinol [Zyloprim 300 MG] 300 mg PO DAILY 11/14/18 [History] Aspirin 325 mg PO DAILY 11/14/18 [History] BuPROPion [Wellbutrin] 100 mg PO DAILY 11/14/18 [History] Calcitriol 0.5 mcg PO BID 11/14/18 [History] Cilostazol [Pletal] 100 mg PO BID 11/14/18 [History] Clobetasol Propionate 0.05% [Temovate] 1 appl TP DAILY PRN 11/14/18 [History] Clopidogrel [Plavix] 75 mg PO DAILY 11/14/18 [History] Ezetimibe 10 mg PO DAILY 11/14/18 [History] Fluticasone/Vilanterol [Breo Ellipta 200-25 Mcg INH] 1 puff IH DAILY 11/14/18 [History] Fluticasone/Vilanterol [Breo Ellipta 200-25 Mcg INH] 1 puff IH DAILY 11/14/18 [History] Furosemide [Lasix] 80 mg PO BID 11/14/18 [History] Gabapentin [Neurontin] 800 mg PO QID 11/14/18 [History] Ipratropium/Albuterol Neb [Duoneb] 3 ml IH Q6HR PRN 11/14/18 [History] Isosorbide MONOnitrate [Isosorbide Mononitrate ER] 120 mg PO BID 11/14/18 [History] Lovastatin 40 mg PO DAILY 11/14/18 [History] Metoprolol Succinate [Toprol Xl] 100 mg PO BID 11/14/18 [History] Multivit,Th Iron,Other Min [Therems-M] 1 tab PO DAILY 11/14/18 [History] Nitroglycerin [Nitrostat] 0.4 mg SL AD PRN 11/14/18 [History] Nystatin POWDER [Nystop] 1 appl TP BID PRN 11/14/18 [History] Omeprazole [PriLOSEC] 20 mg PO DAILY 11/14/18 [History] Potassium Chloride 20 meq PO BID 11/14/18 [History] Ranolazine [Ranexa] 500 mg PO BID 11/14/18 [History] Ropinirole HCl [Requip] 0.5 mg PO HS 11/14/18 [History] Spironolactone [Aldactone] 25 mg PO DAILY 11/14/18 [History] Allergies/Adverse Reactions: Allergy/AdvReac Type Severity Reaction Status Date / Time doxycycline AdvReac Nausea Verified 11/14/18 10:39 esomeprazole [From Nexium] AdvReac Nausea Verified 11/14/18 10:39 - Respiratory Orders Smoking Cessation: Smoking cessation has been advised. For more information, call the [place] Tobacco Quit Line at 3-315-APFL-NOW. - Advance Directives Code Status: Full Code - Rehabiliation Orders Rehab Potential: Fair - Diet Orders Cardiac CERTIFICATION: I certify that the transfer of the above named patient to an Extended Care Facility is necessary for the continuing treatment of the diagnosis listed. The above information is true and accurate reflection of patient's current condition. Confidential - Redisclosure prohibited without a patient's written consent.
[2018-11-16] MEDS ORDERED: cephALEXin 500 MG CAPSULE PO SCH (13:15)
[2018-11-16] MEDS ORDERED: cefTRIAXone 1,000 MG in Water for inj. (sterile) 20 ML 10 ML IVP SCH (14:00)
--- NOTE | 2018-11-16 14:19 | Nephrology Progress Note ---
Date of Encounter: 11/16/18 Time of Encounter: 14:19 - Assessment and Plan (1) Hypercalcemia Status: Acute Calcium improving. Continue hydration. Ok for outpatient follow-up from a renal standpoint. Will sign off. Please call with questions. Subjective Principal diagnosis: hypercalcemia Interval history: Patient seen. No new complaint. Objective - Vital Signs Vital signs: Vital Signs Temp Pulse Resp BP Pulse Ox 11/16/18 11:42 97.8 F 53 18 98/56 94 11/16/18 08:50 97.9 F 60 18 93/61 95 11/16/18 04:05 97.7 F 59 16 91/66 96 11/15/18 23:45 97.5 F L 78 16 94/56 96 11/15/18 19:59 18 93 11/15/18 19:26 97.8 F 62 16 103/87 94 11/15/18 16:26 98.1 F 66 18 94/62 94 Intake and Output 11/15/18 11/16/18 11/16/18 23:59 07:59 15:59 Intake Total 200 / 200 1000 / 1000 Output Total 250 / 250 Balance -50 / -50 1000 / 1000 Intake: IV Fluids 1000 / 1000 0.9 % Sodium Chloride 1,000 ML 1000 / 1000 @ 75 mls/hr IVC .[id number] KATHRIN Rx #:[id number] Oral 200 / 200 Output: Urine 250 / 250 Other: # Voids 1 Weight 115.3 kg Patient Weight 11/16/18 23:59 Weight 115.3 kg - General Appearance General appearance: Present: well-developed, well-nourished, obese EENT: Present: ATNC - Lab 11/15/18 04:36 11/16/18 03:54 Most recent lab results Calcium 11.1 mg/dL (8.6-10.3) H 11/16/18 03:54 Phosphorus 2.3 mg/dL (2.7-4.5) L 11/16/18 03:54 Magnesium 1.0 mg/dL (1.6-2.6) L 11/14/18 11:30 Consult Discharge Plan - Plan Referrals: Neli Hoover, PLASTICS TECHNICIAN [Primary Care Provider] - 11/22/18 1:00 pm Prescriptions: Cephalexin [Keflex] 500 mg PO TID #15 capsule
--- NOTE | 2018-11-16 14:20 | Nephrology Consult Note ---
Date of Encounter: 11/15/18 Time of Encounter: 14:20 Assessment and Plan (1) Hypercalcemia Status: Acute Patient with multifactorial causes for his hypercalcemia. Hold calcium containing products/supplements. Continue hydration. Discontinue vitamin D supplements. Await work-up including vitamin D and PTH. (2) Morbid obesity with BMI of 50.0-59.9, adult Status: Acute (3) CKD (chronic kidney disease) Status: Chronic Patient with JOSSE on CKD likely from volume depletion. Agree with hydration. Follow creatinine. Qualifiers: Qualified Code(s): N18.9 - Chronic kidney disease, unspecified History of Present Illness - Reason for Consult Consult date: 11/15/18 Acute Kidney Injury - Chief Complaint hypercalcemia - History of Present Illness Mr. Baez is a 63 yo man who presented with multiple complaints. He was found to have hypercalcemia. [facility] was consulted to assist with evaluation and management. Past Med Surg Social Fam HX - Past Medical History Medical history: CHF, COPD, coronary artery disease, DVT, hyperlipidemia, hypertension, peripheral artery disease, renal disease Additional medical history: Borderline DM, Polyneuropathy Psychiatric history: anxiety, depression - Past Surgical History Additional surgical history: LEft CEA, Triple vessel CABG, Cholecystectomy, Tonsillectomy, cataract removal, I/D left foot 02/21/2018 - Social History Smoking Status: Current every day smoker Smokeless Tobacco Status: No Alcohol use: none Drug use: none - Family History Father Adopted: No Family Member Ethnicity: Non- Living Status: Still Living Hx Family Cardiac Disorders: Yes Hx Family Respiratory Disorders: No Hx Family Cancer: No Hx Family GI Disorders: No Hx Family Endocrine Disorder: Yes Hx Family Neuromuscular Disorders: No Hx Family Neurologic Disorders: No Hx Family HEENT Disorders: No Hx Family Autoimmune Disorders: No Mother Adopted: No Family Member Ethnicity: Non- Living Status: Hx Family Cardiac Disorders: Yes Hx Family Respiratory Disorders: Yes Hx Family Cancer: No Hx Family GI Disorders: No Hx Family Endocrine Disorder: Yes Hx Family Neuromuscular Disorders: No Hx Family Neurologic Disorders: No Hx Family HEENT Disorders: No Hx Family Autoimmune Disorders: No Medications and Allergies RX: Albuterol Sulfate [Ventolin Hfa] 2 puff IH BID 11/14/18 [History] RX: Allopurinol [Zyloprim 300 MG] 300 mg PO DAILY 11/14/18 [History] RX: Aspirin 325 mg PO DAILY 11/14/18 [History] RX: BuPROPion [Wellbutrin] 100 mg PO DAILY 11/14/18 [History] RX: Calcitriol 0.5 mcg PO BID 11/14/18 [History] RX: Cilostazol [Pletal] 100 mg PO BID 11/14/18 [History] RX: Clobetasol Propionate 0.05% [Temovate] 1 appl TP DAILY PRN 11/14/18 [History] RX: Clopidogrel [Plavix] 75 mg PO DAILY 11/14/18 [History] RX: Ezetimibe 10 mg PO DAILY 11/14/18 [History] RX: Fluticasone/Vilanterol [Breo Ellipta 200-25 Mcg INH] 1 puff IH DAILY 11/14/18 [History] RX: Fluticasone/Vilanterol [Breo Ellipta 200-25 Mcg INH] 1 puff IH DAILY 11/14/18 [History] RX: Furosemide [Lasix] 80 mg PO BID 11/14/18 [History] RX: Gabapentin [Neurontin] 800 mg PO QID 11/14/18 [History] RX: Ipratropium/Albuterol Neb [Duoneb] 3 ml IH Q6HR PRN 11/14/18 [History] RX: Isosorbide MONOnitrate [Isosorbide Mononitrate ER] 120 mg PO BID 11/14/18 [History] RX: Lovastatin 40 mg PO DAILY 11/14/18 [History] RX: Metoprolol Succinate [Toprol Xl] 100 mg PO BID 11/14/18 [History] RX: Multivit,Th Iron,Other Min [Therems-M] 1 tab PO DAILY 11/14/18 [History] RX: Nitroglycerin [Nitrostat] 0.4 mg SL AD PRN 11/14/18 [History] RX: Nystatin POWDER [Nystop] 1 appl TP BID PRN 11/14/18 [History] RX: Omeprazole [PriLOSEC] 20 mg PO DAILY 11/14/18 [History] RX: Potassium Chloride 20 meq PO BID 11/14/18 [History] RX: Ranolazine [Ranexa] 500 mg PO BID 11/14/18 [History] RX: Ropinirole HCl [Requip] 0.5 mg PO HS 11/14/18 [History] RX: Spironolactone [Aldactone] 25 mg PO DAILY 11/14/18 [History] Cephalexin [Keflex] 500 mg PO TID #15 capsule 11/16/18 [Rx] Allergy/AdvReac Type Severity Reaction Status Date / Time doxycycline AdvReac Nausea Verified 11/14/18 10:39 esomeprazole [From Nexium] AdvReac Nausea Verified 11/14/18 10:39 Review of Systems All Systems: reviewed and no additional remarkable complaints except as stated (as per hpi) Exam - Vital Signs Vital signs: Initial Vital Signs Temp Pulse Resp BP Pulse Ox 97.6 F 88 22 108/78 97 11/14/18 10:35 11/14/18 10:35 11/14/18 10:35 11/14/18 10:35 11/14/18 10:35 Vital Signs - Last 8 Hours Temp Pulse Resp BP Pulse Ox 11/16/18 11:42 97.8 F 53 18 98/56 94 11/16/18 08:50 97.9 F 60 18 93/61 95 Intake and Output 11/15/18 11/16/18 11/16/18 23:59 07:59 15:59 Intake Total 200 / 200 1000 / 1000 Output Total 250 / 250 Balance -50 / -50 1000 / 1000 Intake: IV Fluids 1000 / 1000 0.9 % Sodium Chloride 1,000 ML 1000 / 1000 @ 75 mls/hr IVC .[id number] KATHRIN Rx #:[id number] Oral 200 / 200 Output: Urine 250 / 250 Other: # Voids 1 Weight 115.3 kg Patient Weight 11/16/18 23:59 Weight 115.3 kg - General Appearance General appearance: well-developed, well-nourished EENT: ATNC Neck: supple Gastrointestinal: no tenderness Results - Lab Results 11/15/18 04:36 11/16/18 03:54 Most recent lab results Calcium 11.1 mg/dL (8.6-10.3) H 11/16/18 03:54 Phosphorus 2.3 mg/dL (2.7-4.5) L 11/16/18 03:54 Magnesium 1.0 mg/dL (1.6-2.6) L 11/14/18 11:30 Consult Discharge Plan - Plan Referrals: Neli Hoover CNP [Primary Care Provider] - 11/22/18 1:00 pm Prescriptions: Cephalexin [Keflex] 500 mg PO TID #15 capsule
[2018-11-19 14:58] LABS: Alpha 2 Globulin (PEP) 0.73 g/dL (0.48-1.05); Beta Globulin (PEP) 0.57 g/dL (0.48-1.10)
[2018-11-20 08:28] LABS: IFE Reflexed IFE Done; Immunoglobulin A 158 mg/dL (68-408); Immunoglobulin G 528 mg/dL (768-1632); Immunoglobulin M 62 mg/dL (35-263)
== END 2018-11-16 16:21 ==
LOC: EMEROOARM 10:29 → 3BNU 10:29 → SUATTDRO 14:12 → 3BNU 15:20
PROVIDERS: ADMIT Hospitalist; ATTEND Family Medicine

== ENCOUNTER 2019-01-11 06:06 | Inpatient (IN) ==
[~2019-01-11 06:06] MED LIST: Bupivacaine/Clonidine Syringe 1 EACH SYRINGE IJ ONE
[2019-01-11] MEDS ORDERED: Clindamycin 900 MG/50 ML 900 MG/50 ML IV.SOLN IVPB ONE (06:27)
[2019-01-11] MEDS ORDERED: Albuterol 2.5 MG/3 ML NEBULIZER IH ONE (06:27)
[2019-01-11] MEDS ORDERED: Ringers Solution, Lactated 1,000 ML IVC SCH (06:30)
--- NOTE | 2019-01-11 07:02 | History & Physical Report ---
Date of Encounter: 01/11/19 Time of Encounter: 07:02 24 Hour HP Update - Instructions Instructions: If the History and Physical is less than 30 days old and was completed prior to A.M. admission and or procedure and has NOT been updated on calendar day of procedure please complete this update prior to performing procedure. - Update Patient reports changes in Medical Condition: No Changes in examination, assessment, or condition: No Changes in Medication: No Preop tests/diagnostics Reviewed: Yes Pre-Op MRSA Screen: Negative Surgery Remains Indicated: Yes Consent for Planned Operative Procedure(s) Verified: Yes
[2019-01-11] MEDS ORDERED: Lidocaine -MPF 2% 2 ML VIAL ONE (07:09)
[2019-01-11] MEDS ORDERED: *HR* FentaNYL (PF) 100 MCG/2 ML VIAL ONE (07:09)
[2019-01-11] MEDS ORDERED: Propofol 500 MG/50 ML INFUS..BTL ONE (07:09)
--- NOTE | 2019-01-11 07:20 | Anesthesia Evaluation PreOp ---
Date of Encounter: 01/11/19 Time of Encounter: 07:15 - Past History Planned Operation: Removal infected bone/ulcer/tissue left foot Cardiac History: HTN, Cardiac Surgery (CABG around 1999), Cardiac Stent (many, most recently around 10 years ago) Pulmonary History: Smoker, COPD, COMFORT Dx (does not use CPAP but wears 3-3.5L oxygen at night) MEDICAL SALES SPECIALIST History: Other (peripheral neuropathy, hx CEA) Other Medical History: Renal (ckd), Diabetes Type II (borderline) Anesthesia History: No Prior Anesthetic Complications Alcohol Use: none Drug use: none Medications and Allergies Albuterol Sulfate [Ventolin Hfa] 2 puff IH BID 11/14/18 [History] Allopurinol [Zyloprim 300 MG] 300 mg PO DAILY 11/14/18 [History] Aspirin 325 mg PO DAILY 11/14/18 [History] BuPROPion [Wellbutrin] 100 mg PO DAILY 11/14/18 [History] Calcitriol 0.5 mcg PO BID 11/14/18 [History] Cilostazol [Pletal] 100 mg PO BID 11/14/18 [History] Clobetasol Propionate 0.05% [Temovate] 1 appl TP DAILY PRN 11/14/18 [History] Clopidogrel [Plavix] 75 mg PO DAILY 11/14/18 [History] Ezetimibe 10 mg PO DAILY 11/14/18 [History] Fluticasone/Vilanterol [Breo Ellipta 200-25 Mcg INH] 1 puff IH DAILY 11/14/18 [History] Fluticasone/Vilanterol [Breo Ellipta 200-25 Mcg INH] 1 puff IH DAILY 11/14/18 [History] Furosemide [Lasix] 80 mg PO BID 11/14/18 [History] Gabapentin [Neurontin] 800 mg PO QID 11/14/18 [History] Ipratropium/Albuterol Neb [Duoneb] 3 ml IH Q6HR PRN 11/14/18 [History] Isosorbide MONOnitrate [Isosorbide Mononitrate ER] 120 mg PO BID 11/14/18 [History] Lovastatin 40 mg PO DAILY 11/14/18 [History] Metoprolol Succinate [Toprol Xl] 100 mg PO BID 11/14/18 [History] Multivit,Th Iron,Other Min [Therems-M] 1 tab PO DAILY 11/14/18 [History] Nitroglycerin [Nitrostat] 0.4 mg SL AD PRN 11/14/18 [History] Nystatin POWDER [Nystop] 1 appl TP BID PRN 11/14/18 [History] Omeprazole [PriLOSEC] 20 mg PO DAILY 11/14/18 [History] Potassium Chloride 20 meq PO BID 11/14/18 [History] Ranolazine [Ranexa] 500 mg PO BID 11/14/18 [History] Ropinirole HCl [Requip] 0.5 mg PO HS 11/14/18 [History] Spironolactone [Aldactone] 25 mg PO DAILY 11/14/18 [History] Cephalexin [Keflex] 500 mg PO TID #15 capsule 11/16/18 [Rx] Allergy/AdvReac Type Severity Reaction Status Date / Time doxycycline AdvReac Nausea Verified 01/03/19 14:21 esomeprazole [From Nexium] AdvReac Nausea Verified 01/03/19 14:21 - Meds/Allergy Pre-op Review Medications Reviewed: Yes Allergies Reviewed: Yes Beta Blockers on Current Med List: Yes If Beta Blockers taken, Date/Time (Last Dose taken): held for days Anesthesia Results - Labs Laboratory Tests 12/13/18 01/03/19 01/03/19 10:31 15:16 15:16 WBC 9.0 Hgb 16.1 Hct 48.0 Plt Count 141 Sodium 139 Potassium 3.5 Chloride 105 Carbon Dioxide 22 L BUN 24 H Creatinine 1.28 Est GFR ( Amer) > 60 Est GFR (Non-Af Amer) 57 L BUN/Creatinine Ratio 13 Glucose 98 Est Mean Plasma Glucose Hemoglobin A1c Calculated Osmolality 292 Calcium 10.2 Phosphorus 2.6 L 01/03/19 15:16 WBC Hgb Hct Plt Count Sodium Potassium Chloride Carbon Dioxide BUN Creatinine Est GFR ( Amer) Est GFR (Non-Af Amer) BUN/Creatinine Ratio Glucose Est Mean Plasma Glucose 114 Hemoglobin A1c 5.6 Calculated Osmolality Calcium Phosphorus - Imaging EKG: report reviewed, image reviewed (Sinus rhythm Left axis deviation) Anesthesia Exam Last Vital Signs Temp 97.8 F 01/11/19 06:30 Pulse 72 01/11/19 06:30 Resp 18 01/11/19 06:30 BP 117/78 01/11/19 06:30 Pulse Ox 93 01/11/19 06:30 Weight: 114 kg NPO (# of Hours): > 8 hrs - HEENT Pupil (Motor): Pupils equal, EOMI Mallampati: III Teeth: Edentulous Oral Opening: Greater than 3 - MEDICAL SALES SPECIALIST LOC: Oriented - Cardiac Rhythm: Regular Murmur: None - Pulmonary Breath Sounds: bilateral Clear Respiratory Effort: Symmetrical Anesthesia Assess/Plan ASA Score: 4 Level of consciousness: Cooperative Anesthetic Plan: MAC Monitoring Plan: Standard Monitors Recovery Plan: PACU
[2019-01-11] MEDS ORDERED: Vancomycin 1,000 MG VIAL ONE (07:31)
[2019-01-11] MEDS ORDERED: Bupivacaine/Clonidine Syringe 1 EACH SYRINGE IJ ONE (07:45)
[2019-01-11] MEDS ORDERED: *HR* Propofol 200 MG/20 ML VIAL IVP ONE (09:09)
--- NOTE | 2019-01-11 09:45 | Orthopedic Operative Note ---
Date of procedure: 01/11/19 Pre-op diagnosis: #1: Osteomyelitis first metatarsal phalangeal joint left foot Post-op diagnosis: same Procedure: 01/11/19 09:37 #1: Resection of first metatarsal head for biopsy #2: Sesamoidectomy #3: Excision of ulceration medial left foot #4: Deposition of antibiotic beads Implants: #1: Antibiotic beads/calcium sulfate impregnated with vancomycin Complications: None Anesthesia: MAC, local Local Anesthetics: 0.25% Sensorcaine HCL SubQ (cc) Surgeon: Sergei Caballero Was there an assistant guest services manager present: No Estimated blood loss (cc): 10 Tourniquet Time (Minutes): 0 Specimen: Metatarsal head #1 left foot, tissue cultures swab cultures Condition: stable Disposition: PACU Procedure in Detail: 01/11/19 09:39 Details in summary of procedure: The patient was brought to surgical suite. A sign in procedure was performed. Patient was then transferred to the surgical table positioned properly safely securely. Left foot elevated on a foam block. No tourniquet was used. Patient was then sedated after an anesthetic timeout was taken. Left ankle was then prepped with alcohol 3 times. Ankle block was carried out without difficulty or complication. Left foot was then prepped and draped usual sterile manner. Surgical timeout taken. Inspection of the left foot reveals an ulceration penetrated to the fifth metatarsal phalangeal joint plantar medial aspect. Patient's x-rays were consistent with osteomyelitis acute on chronic. A standard dorsal medial incision was carried out medial to the EHL tendon down subcutaneous tased tissue. Any bleeders encountered were bovied as necessary. Sharp dissection was then continued down to the deep fascia. Gentle retraction afforded visualization of the metatarsal phalangeal joint. Capsulotomy was then performed from distal to proximal. Its great toe was partially dorsally dislocated. Periosteal elevation was undertaken with a #15 scalpel blade through reflect the periosteum as well as the capsular structures off the metatarsal-phalangeal joint dorsally medially and laterally. This afforded visualization of the head of the first metatarsal which was not of normal color texture density with erosions of the mid tarsal phalangeal joint/cartilaginous surfaces on the dorsal medial plantar aspect. Medial sesamoid was not visualized. Lateral sesamoid was eventually sesamoid after resection of the first metatarsal head and the dorsal plantar fashion using a command power saw. The head of the first metatarsal was then sent for culture then pathology. The lateral sesamoid was not of normal color texture density on inspection to 2 had to be resected as well with a pickup and tenotomy scissors. The flexor tendon was noted to be intact throughout dissection. The remaining surfaces of the base of the proximal phalanx that were suspect were debrided with a bone rongeur. Remaining service of the distal portion of the distal metatarsal was remodeled using a Lebron Clement nasal rasp. Satisfied there is no purulent drainage or necrosis or any further suspicious bone the wound was flushed with copious amounts sterile saline. There is a direct sinus tract from the metatars ophalangeal joint to the external ulceration. At that point the left leg was repositioned and externally rotated position. The ulceration on the plantar medial aspect first metatarsal-phalangeal joint was noted to 5 cm similar elliptical incisions were performed to excise the ulceration directly down to the capsule. It was sent for culture. The wound was flushed copious must sterile saline. At that point the remaining capsular structures were reanastomosed with 2-0 Vicryl subcutaneous tased tissue was reanastomosed with 3-0 Vicryl and skin repaired with 3-0 Prolene. Attention was then turned the dorsal aspect of the foot with the original incision was placed any suspicious capsular structures that were infected were debrided as well the wound was flushed again with copious amounts sterile saline. At that point a [employer] ultrasonic debrider was also used to debride the wound. Satisfied we a clean wound without any evidence of infection the wound was packed with antibiotic impregnated beads. Capsular structures were then reanastomosed with 2-0 Vicryl subcutaneous tased tissue reanastomosed with 3-0 Vicryl and skin repaired with 3-0 Prolene. No complications ensued. Wound was sprayed with PRP prior to closure. Hemostasis was achieved. Dressing was applied Adaptic 4 by 4's, Kerlix compression dressing. Capillary rebound time less than 3 seconds to all toes. No complications patient then sent to PACU in good condition with vital signs stable S May blood loss less than 10 mL
[2019-01-11] MEDS ORDERED: Ipratropium/Albuterol Neb 3 ML IH PRN (13:50)
[2019-01-11] MEDS ORDERED: Clobetasol Propionate 0.05% 15 GM Cream Tube TP PRN (13:50)
--- NOTE | 2019-01-11 13:55 | Internal Medicine Consult Note ---
Date of Encounter: 01/11/19 Time of Encounter: 14:20 - Assessment and Plan (1) Osteomyelitis of toe Current Visit: Yes Status: Acute Assessment and plan: Acute osteomyelitis involving the left great toe. Failed outpatient treatment and so patient underwent surgery today. With implantation of antibiotic beads. Podiatry following. We will continue to follow the recommendations. (2) CAD (coronary artery disease) Current Visit: Yes Status: Chronic Assessment and plan: Patient with history of coronary artery disease status post CABG and stents. Continue Plavix, statin. No chest pain at this time. Qualifiers: Coronary Disease-Associated Artery/Lesion type: [place] artery [place] vs. transplanted heart: [place] heart Associated angina: without angina Qualified Code(s): I25.10 - Atherosclerotic heart disease of [place] coronary artery without angina pectoris (3) CKD (chronic kidney disease) stage 3, GFR 30-59 ml/min Current Visit: Yes Status: Chronic Assessment and plan: Will obtain basic panel. Monitor renal function closely. Avoid nephrotoxic agents. (4) COPD (chronic obstructive pulmonary disease) Current Visit: Yes Status: Chronic Assessment and plan: not in acute exacerbation. Use bronchodilators as needed. Qualifiers: Chronic bronchitis type: unspecified Qualified Code(s): J42 - Unspecified chronic bronchitis (5) Hypertension Current Visit: Yes Status: Chronic Assessment and plan: Patient is on metoprolol, Imdur and Lasix. Will continue. Qualifiers: Hypertension type: essential hypertension Qualified Code(s): I10 - Essential (primary) hypertension (6) PAD (peripheral artery disease) Current Visit: Yes Status: Acute Assessment and plan: Patient with history of PAD. We will continue Plavix, statin and Pletal - Summary of Assessment and Plan Summary of Assessment and Plan: DVT prophylaxis With subcutaneous heparin - Time Spent With Patient Total time spent is greater than 50% in coordination of care (as documented) at patient's floor/unit and/or counseling patient: Internal Medicine - CN: HPI - Data of Consult Patient: known to practice within the last 3 years Consult date: 01/11/19 Requesting Physician: Sergei Caballero, - Consult Narrative Reason for consult: Med management History of present illness: Mr. Baez is a 63 year old male patient with history of CAD, PAD, osteomyelitis involving his left foot great toe is presently admitted post op after resection of first metatarsal head/ sesamoidectomy, deposition of antibiotic beads. We were consulted for med management. At this time patient mainly complains of neuropathy pain in his upper extremities. He denies any chest pain or palpitations. No recent episodes of fever or chills. Patient had previously completed intravenous antibiotics through PICC line. He states that his been dealing with this infection of his foot for about 21 months now. He states that he does not have a history of diabetes. He does however have peripheral arterial disease and was recommended bypass grafting but given his cardiac history, he was not cleared for surgery. He presently takes Plavix and Pletal. Past Med Surg Social Fam HX - Past Medical History Attestation: Yes The following information was validated with the patient. Source: patient Medical history: CHF, COPD, coronary artery disease, DVT, hyperlipidemia, hypertension, peripheral artery disease, renal disease Additional medical history: Borderline DM, Polyneuropathy Psychiatric history: anxiety, depression - Past Surgical History Surgical History: cataract Additional surgical history: LEft CEA, Triple vessel CABG, Cholecystectomy, Tonsillectomy, cataract removal, I/D left foot 02/21/2018 - Social History Smoking Status: Current every day smoker Packs per day: 1 Smokeless Tobacco Status: No Alcohol use: none Drug use: none - Family History Father Adopted: No Family Member Ethnicity: Non- Living Status: Still Living Hx Family Cardiac Disorders: Yes Hx Family Respiratory Disorders: No Hx Family Cancer: No Hx Family GI Disorders: No Hx Family Endocrine Disorder: Yes Hx Family Neuromuscular Disorders: No Hx Family Neurologic Disorders: No Hx Family HEENT Disorders: No Hx Family Autoimmune Disorders: No Mother Adopted: No Family Member Ethnicity: Non- Living Status: Hx Family Cardiac Disorders: Yes Hx Family Respiratory Disorders: Yes Hx Family Cancer: No Hx Family GI Disorders: No Hx Family Endocrine Disorder: Yes Hx Family Neuromuscular Disorders: No Hx Family Neurologic Disorders: No Hx Family HEENT Disorders: No Hx Family Autoimmune Disorders: No - Constitutional Constitutional: no anorexia, no chills, no fever(s), no falls - Cardiovascular Cardiovascular ROS IM: no chest pain, no dyspnea, no dyspnea on exertion, no orthopnea, no palpitations, no paroxysmal nocturnal dyspnea - Respiratory Respiratory: no cough, no dyspnea, no dyspnea on exertion, no wheezing - Gastrointestinal Gastrointestinal: no abdominal pain, no diarrhea, no nausea, no vomiting - Musculoskeletal Musculoskeletal ROS IM: no atrophy, no deformity, no muscle cramps, no muscle weakness, no myalgias - Integumentary Integumentary IM: non-healing lesions, no new lesions, no rash - Neurological Neurological ROS: numbness, paresthesias, tingling, no confusion - Psychiatric Psychiatric: no behavioral changes, no confusion, no depression Internal Medicine - CN: Meds Albuterol Sulfate [Ventolin Hfa] 2 puff IH BID 11/14/18 [History] Allopurinol [Zyloprim 300 MG] 300 mg PO DAILY 11/14/18 [History] BuPROPion [Wellbutrin] 100 mg PO DAILY 11/14/18 [History] Calcitriol 0.5 mcg PO BID 11/14/18 [History] Cilostazol [Pletal] 100 mg PO BID 11/14/18 [History] Clobetasol Propionate 0.05% [Temovate] 1 appl TP DAILY PRN 11/14/18 [History] Clopidogrel [Plavix] 75 mg PO DAILY 11/14/18 [History] Ezetimibe 10 mg PO DAILY 11/14/18 [History] Fluticasone/Vilanterol [Breo Ellipta 200-25 Mcg INH] 1 puff IH DAILY 11/14/18 [History] Furosemide [Lasix] 80 mg PO BID 11/14/18 [History] Gabapentin [Neurontin] 800 mg PO 0800,1300,1800,2300 11/14/18 [History] Ipratropium/Albuterol Neb [Duoneb] 3 ml IH Q6HR PRN 11/14/18 [History] Lovastatin 40 mg PO DAILY 11/14/18 [History] Metoprolol Succinate [Toprol Xl] 100 mg PO BID 11/14/18 [History] Multivit,Th Iron,Other Min [Therems-M] 1 tab PO DAILY 11/14/18 [History] Nitroglycerin [Nitrostat] 0.4 mg SL AD PRN 11/14/18 [History] Omeprazole [PriLOSEC] 20 mg PO DAILY 11/14/18 [History] Potassium Chloride 20 meq PO BID 11/14/18 [History] Ranolazine [Ranexa] 500 mg PO BID 11/14/18 [History] Ropinirole HCl [Requip] 0.5 mg PO HS 01/08/19 [History] Isosorbide MONOnitrate (24 HR) [Imdur] 60 mg PO BID 01/11/19 [History] Mometasone/Formoterol [Dulera 200 Mcg/5 Mcg Inhaler] 2 puff PO BID 01/11/19 [History] Allergy/AdvReac Type Severity Reaction Status Date / Time doxycycline AdvReac Nausea Verified 01/11/19 07:29 esomeprazole [From Nexium] AdvReac Nausea Verified 01/11/19 07:29 Hospitalist - CN: Exam - Constitutional Vitals: Temp Pulse Resp BP Pulse Ox 97.9 F 60 16 131/88 93 01/11/19 13:10 01/11/19 13:10 01/11/19 13:10 01/11/19 13:10 01/11/19 13:10 General appearance IM: Present: cooperative, A&O X 3, answers questions appropriately Exam: General: Patient is alert, mild distress, oriented x 3, ,obese Head: atraumatic, normocephalic, Neck: normal inspection, trachea midline, full ROM, no carotid bruits Chest: normal inspection, symmetric chest rise Respiratory: Good respiratory effort. Normal breath sounds. No wheezing or crackles. Cardiovascular: Regular rate and rhythm. s1 and s2 normal No clicks, rubs, gallops, or murmurs. No pedal edema Abdomen: Abdomen is soft, nontender. Bowel sounds are present Musculoskeletal: Spontaneously moving all extremities , left foot currently bandaged. Skin: warm, dry, intact. Neuro: Alert oriented x 3 normal cranial nerves, no focal deficits Psych: Patient's affect is normal Internal Medicine - CN: Reslt - Impressions Impressions Foot X-Ray 01/11/19 00:00 IMPRESSION: Status post 1st metatarsal osteotomy with anatomic alignment of the 1st digit and immature bone packing material at the osteotomy site. D/ / 01/11/2019 12:04:28 Alejandro Curry MD / kori Interpreting Provider: Alejandro Curry MD Consult Discharge Plan - Plan Referrals: Neli Hoover EARTH AUGER OPERATOR [Primary Care Provider] -
[2019-01-11] MEDS ORDERED: Dextrose 4 GM Chewable Tablets PO PRN ×2 (13:56)
[2019-01-11] MEDS ORDERED: D5% in Water 1,000 ML IVC PRN (13:56)
[2019-01-11] MEDS ORDERED: *HR* Dextrose 50 % in Water (Syg) 50 ML SYRINGE IVP PRN (13:56)
[2019-01-11] MEDS ORDERED: Dextrose Gel 15 GM/37.5 ML TUBE PO PRN ×2 (13:56)
[2019-01-11] MEDS: Gabapentin 400 MG CAPSULE PO SCH ×3 (15:32→23:45)
[2019-01-11] MEDS: Piperacillin/Tazobactam 3.375 GM in 0.9 % Sodium Chloride Mini Bag 100 ML IVPB SCH ×2 (15:33→23:46)
[2019-01-11 16:08] LABS: Estimated Average Glucose 114 mg/dl; Hemoglobin A1C 5.6 %
[2019-01-11] MEDS ORDERED: Insulin LISPRO 300 UNITS/3 ML VIAL SQ SCH ×2 (16:30→21:00)
[2019-01-11] MEDS: Furosemide 40 MG TABLET PO SCH (17:38)
[2019-01-11] MEDS: Metoprolol XL (24 HR) Succ 50 MG TAB.ER.24H PO SCH (20:23)
[2019-01-11] MEDS: Isosorbide MONOnitrate (24 HR) 60 MG TAB.ER.24H PO SCH (20:24)
[2019-01-11] MEDS: Ranolazine 500 MG TAB.ER.12H PO SCH (20:24)
[2019-01-11] MEDS: rOPINIRole 0.25 MG TABLET PO SCH (20:24)
[2019-01-11] MEDS: Budesonide/Formoterol 160/4.5 1 PUFF INH IH SCH (22:36)
[2019-01-12 05:20] LABS: Basophils % 0.5 %; Eosinophils # 0.5 K/mcL (0.0-0.6); Eosinophils % 6.2 %; Hematocrit 43.1 % (37.5-50.1); Hemoglobin 14.8 g/dL (12.9-16.9); Immature Granulocytes % 0.3 % (0-4); Lymphocytes % 25.2 %; Mean Corpuscular HGB Conc 34.3 g/dL (31.6-35.5); Mean Corpuscular Hemoglobin 35.1 pg (28.0-33.3); Mean Corpuscular Volume 102.1 fL (83.0-100.0); Mean Platelet Volume 9.7 fL (9.4-12.4); Monocytes # 0.7 K/mcL (0.0-1.3); Monocytes % 8.3 %; Neutrophils # 4.7 K/mcL (1.6-8.9); Platelet Count 114 K/mcL (140-400); Red Blood Count 4.22 M/mcL (4.19-5.50); Red Cell Distribution Width 14.2 % (11.5-14.5); Segmented Neutrophils % 59.5 %
[2019-01-12 05:35] LABS: BUN/Creatinine Ratio 13 (6-26); Blood Urea Nitrogen 14 mg/dL (8-23); C-Reactive Protein 10 mg/L (Less than 10); Calcium 9.1 mg/dL (8.6-10.3); Carbon Dioxide 24 mEq/L (23-29); Chloride 107 mEq/L (98-107); Glucose 96 mg/dL (70-105); Osmolality,Calculated 288 (280-300); Sodium 139 mEq/L (136-145); eGFR For Non-African Americans > 60 (> 60)
[2019-01-12] MEDS: Isosorbide MONOnitrate (24 HR) 60 MG TAB.ER.24H PO SCH ×2 (07:25→21:03)
[2019-01-12] MEDS: Metoprolol XL (24 HR) Succ 50 MG TAB.ER.24H PO SCH (07:26)
[2019-01-12] MEDS: Furosemide 40 MG TABLET PO SCH ×2 (07:26→16:02)
[2019-01-12] MEDS: Ranolazine 500 MG TAB.ER.12H PO SCH ×2 (07:34→21:02)
[2019-01-12] MEDS: Multivit/Ca/Min/Fe/FA 1 TAB TABLET PO SCH (07:34)
[2019-01-12] MEDS: Piperacillin/Tazobactam 3.375 GM in 0.9 % Sodium Chloride Mini Bag 100 ML IVPB SCH ×2 (07:44→15:58)
[2019-01-12] MEDS: Budesonide/Formoterol 160/4.5 1 PUFF INH IH SCH ×2 (07:58→22:17)
[2019-01-12] MEDS ORDERED: (Ezetimibe [Ezetimibe] 10 MG) PO SCH (09:00)
[2019-01-12] MEDS ORDERED: (Fluticasone/Vilanterol [Breo Ellipta 200-25 Mcg Inh] IH SCH (09:00)
[2019-01-12] MEDS: Gabapentin 400 MG CAPSULE PO SCH ×4 (10:29→23:47)
[2019-01-12] MEDS: Nicotine 21 MG PATCH.TD24 TD SCH (10:34)
--- NOTE | 2019-01-12 12:54 | Internal Med Progress Note ---
Hospitalist Progress Note - Encounter Date of Encounter: 01/12/19 Time of Encounter: 12:51 - Subjective Interval History: Patient seen and examined at bedside. Patient states that he feels pretty good today. He is upset that he is on a restricted diet. He denies any foot pain, fever, chills. - Exam Vitals: Temp Pulse Resp BP Pulse Ox 97.5 F L 71 14 98/65 91 01/12/19 10:44 01/12/19 10:44 01/12/19 10:44 01/12/19 10:44 01/12/19 10:44 Exam: Heart: Regular rate and rhythm, no murmurs, rubs, gallops Lungs: Clear to auscultation bilaterally, no rales, rhonchi, wheezes Extremity: Left foot: Dressing clean dry and intact - Assessment and Plan (1) Osteomyelitis of toe Current Visit: Yes Status: Acute Assessment and Plan: Intraoperative evidence of osteomyelitis status post resection. Postop day 1. Cultures pending. Currently on IV antibiotics. Discussed with podiatry nurse practitioner, patient may need long-term antibiotics. Further management per primary podiatry service (2) CAD (coronary artery disease) Current Visit: Yes Status: Chronic Assessment and Plan: Stable. No chest pain at this time. Continue beta syed, Plavix (3) PAD (peripheral artery disease) Current Visit: Yes Status: Chronic Assessment and Plan: No acute changes at this time. Continue Plavix, Pletal (4) CKD (chronic kidney disease) stage 3, GFR 30-59 ml/min Current Visit: Yes Status: Chronic Assessment and Plan: Renal function good today at this time GFR is greater than 60 over baseline GFR appears to be in the mid 50s. Good urine output. Continue to monitor. (5) Hypertension Current Visit: Yes Status: Chronic Assessment and Plan: Blood pressure borderline low. Asymptomatic. Apparently the patient has been taking Toprol-XL 50 mg twice a day we will cut back to daily. (6) COPD (chronic obstructive pulmonary disease) Current Visit: Yes Status: Chronic Assessment and Plan: Patient asymptomatic at this time. Not in acute exacerbation. Continue home inhalers. - Time Spent with Patient Total time spent is greater than 50% in coordination of care (as documented) at patient's floor/unit and/or counseling patient: Internal Medicine: Result - Labs CBC & Chem 7: 01/12/19 04:41 01/12/19 04:41 Labs: Short CBC 01/12/19 Range/Units 04:41 WBC 7.9 (4.3-11.1) K/mcL Hgb 14.8 (12.9-16.9) g/dL Hct 43.1 (37.5-50.1) % Plt Count 114 L (140-400) K/mcL Neutrophils # 4.7 (1.6-8.9) K/mcL BMP 01/12/19 04:41 Sodium 139 Potassium 3.0 L Chloride 107 Carbon Dioxide 24 BUN 14 Creatinine 1.06 Glucose 96 Calcium 9.1 - Impressions Impressions Foot X-Ray 01/11/19 00:00 IMPRESSION: Status post 1st metatarsal osteotomy with anatomic alignment of the 1st digit and immature bone packing material at the osteotomy site. D/ / 01/11/2019 12:04:28 Alejandro Curry MD / kori Interpreting Provider: Alejandro Curry MD Consult Discharge Plan - Plan Referrals: Neli Hoover, AERIAL LINEMAN [Primary Care Provider] - (2) CAD (coronary artery disease) Qualifiers: Coronary Disease-Associated Artery/Lesion type: [place] artery [place] vs. transplanted heart: [place] heart Associated angina: without angina Qualified Code(s): I25.10 - Atherosclerotic heart disease of [place] coronary artery without angina pectoris (5) Hypertension Qualifiers: Hypertension type: essential hypertension Qualified Code(s): I10 - Essential (primary) hypertension (6) COPD (chronic obstructive pulmonary disease) Qualifiers: COPD type: chronic bronchitis Chronic bronchitis type: unspecified Qualified Code(s): J42 - Unspecified chronic bronchitis
[2019-01-12] MEDS ORDERED: Insulin LISPRO 300 UNITS/3 ML VIAL SQ SCH ×2 (16:30→21:00)
--- NOTE | 2019-01-12 16:31 | Podiatry Progress Note ---
Date of Encounter: 01/12/19 Time of Encounter: 16:00 - Assessment and Plan (1) Osteomyelitis of toe Current Visit: Yes Status: Acute Assessment: s/p day #1 resection of first metatarsal head for biopsy, sesamoidectomy, excision of ulceration medial left foot, deposition of antibiotic beads Incision well approximated both medial aspect and dorsal aspect of foot No erythema, no edema, no drainage, no signs of dehiscence, no signs of infection noted WBC 7.9 Surgical biopsy of left great toe and left foot pending Anaerobic culture of left great toe and left foot pending Wound culture of left great toe pending Plan: Cleansed with 0.9 NS. Covered incision with adaptic, 4x4 dry gauze, and kerlex. Secured with paper tape. Do not change dressing. Awaiting cultures Will consider ID consult for ATB management once cultures returned Patient refused CAM walker boot. Recommend patient use CAM boot for stability Use surgical shoe when ambulating if not wearing CAM boot. Subjective Interval history: Patient awake in bed. Reports he is ready to go home. States he will leave AMA Tuesday if he is unable to get discharged. States he will come back if needs IV antibiotics. Patient denies any fevers, chills, nausea, vomiting, or diarrhea. Denies chest pain, calf pain, or shortness of breath. No other questions or concerns at this time. Objective - Vital Signs Vital Signs: Vital Signs Temp Pulse Resp BP Pulse Ox 01/12/19 14:37 97.6 F 74 14 84/50 94 01/12/19 10:44 97.5 F L 71 14 98/65 91 01/12/19 08:00 17 92 01/12/19 05:01 98.1 F 71 14 84/59 90 01/12/19 00:28 97.6 F 68 14 95/66 93 01/11/19 22:36 15 95 01/11/19 19:34 98.0 F 78 14 110/49 94 Intake and Output 01/12/19 01/12/19 01/12/19 07:59 15:59 23:59 Intake Total 100 / 100 460 / 460 Output Total 0 / 0 Balance 100 / 100 460 / 460 Intake: IV Fluids 100 / 100 100 / 100 Zosyn 3.375 GM In 0.9 % Sodium 100 / 100 100 / 100 Chloride (Mini-Bag +) 100 ML @ 25 mls/hr IVPB Q8HR [facility] Rx#: [id number] Oral 360 / 360 Output: Urine 0 / 0 Other: Meal Lunch Percent of Meal Consumed 10% Stool Size Moderate Large Large Stool Consistency liquid liquid liquid Stool Color Brown Brown Brown # Voids 1 1 # Urine Diapers 0 # Bowel Movements 0 1 # Bowel Movement Diapers 0 Weight 124.1 kg Patient Weight 01/12/19 23:59 Weight 124.1 kg - Exam Exam: Constitiutional: Alert and oriented x 3. Well nourished. No acute distress noted Vascular: 1/ DP/PT LLE, CFT <3 sec to all digits LLE, warm to warm from tibia to toes LLE, no calf pain with squeeze LLE Neurologic: Diminished sensation to touch, normal plantar response, abnormal position sense dorsiflexion/plantar flexion Dermatologic: Incision noted to right 1st metatarsal medial aspect of foot and dorsal aspect of foot. Incision well approximated. No signs of drainage. No erythema or edema noted. No signs of infection noted. Musculoskeletal: 3/5 muscle strength and normal tone LLE. - Lab Result Diagrams: 01/12/19 04:41 01/12/19 04:41 Labs: Abnormal lab results MCV 102.1 fL (83.0-100.0) H 01/12/19 04:41 MCH 35.1 pg (28.0-33.3) H 01/12/19 04:41 Plt Count 114 K/mcL (140-400) L 01/12/19 04:41 ESR 48 mm/hr (0-10) H 01/12/19 04:41 Potassium 3.0 mEq/L (3.5-5.1) L 01/12/19 04:41 POC Glucose 120 mg/dL (70-99) H 01/11/19 21:37 C-Reactive Protein 10 mg/L (Less than 10) H 01/12/19 04:41 Microbiology, Last 48 Hours 01/11/19 08:25 Surgical Biopsy Culture - Preliminary Left Great Toe 01/11/19 08:47 Surgical Biopsy Culture - Preliminary Left Foot 01/11/19 08:47 Anaerobic Culture - Preliminary Left Foot Culture is incubating. 01/11/19 08:25 Wound Culture - Preliminary Left Great Toe Culture is incubating. 01/11/19 08:25 Anaerobic Culture - Preliminary Left Great Toe Culture is incubating. Consult Discharge Plan - Plan Referrals: Neli Hoover CNP [Primary Care Provider] -
[2019-01-12] MEDS: rOPINIRole 0.25 MG TABLET PO SCH (21:05)
[2019-01-13] MEDS: Piperacillin/Tazobactam 3.375 GM in 0.9 % Sodium Chloride Mini Bag 100 ML IVPB SCH ×4 (00:35→23:53)
[2019-01-13] MEDS: Budesonide/Formoterol 160/4.5 1 PUFF INH IH SCH ×2 (07:54→20:43)
[2019-01-13] MEDS: Furosemide 40 MG TABLET PO SCH ×2 (10:05→17:48)
[2019-01-13] MEDS: Isosorbide MONOnitrate (24 HR) 60 MG TAB.ER.24H PO SCH ×2 (10:05→20:21)
[2019-01-13] MEDS: Metoprolol XL (24 HR) Succ 50 MG TAB.ER.24H PO SCH (10:05)
[2019-01-13] MEDS: Ranolazine 500 MG TAB.ER.12H PO SCH ×2 (10:05→20:20)
[2019-01-13] MEDS: Multivit/Ca/Min/Fe/FA 1 TAB TABLET PO SCH (10:05)
[2019-01-13] MEDS: Gabapentin 400 MG CAPSULE PO SCH ×4 (10:07→23:53)
[2019-01-13] MEDS: Nicotine 21 MG PATCH.TD24 TD SCH (10:13)
--- NOTE | 2019-01-13 11:03 | Internal Med Progress Note ---
Hospitalist Progress Note - Encounter Date of Encounter: 01/13/19 Time of Encounter: 11:01 - Subjective Interval History: Patient seen and examined at bedside. Patient states that he feels okay today. He reports he is shaky and pain all over because he has not received his Ranexa yet this morning. Otherwise has no complaints. He does report pain at his surgical site. Denies fever, chills. - Exam Vitals: Temp Pulse Resp BP Pulse Ox 98.2 F 75 16 93/54 95 01/13/19 04:00 01/13/19 04:00 01/13/19 07:54 01/13/19 04:00 01/13/19 07:54 Exam: Heart: Regular rate and rhythm, no murmurs, rubs, gallops Lungs: Clear to auscultation bilaterally, no rales, rhonchi, wheezes Extremity: Left foot: Dressing clean dry and intact - Assessment and Plan (1) Osteomyelitis of toe Current Visit: Yes Status: Acute Assessment and Plan: Intraoperative evidence of osteomyelitis status post resection. Postop day 2. Cultures preliminary positive for multiple organisms, final ID pending. Currently on IV antibiotics. Long-term antibiotics per podiatry service. Fu rther management per primary podiatry service (2) CAD (coronary artery disease) Current Visit: Yes Status: Chronic Assessment and Plan: Stable. No chest pain at this time. Continue beta syed, Plavix (3) PAD (peripheral artery disease) Current Visit: Yes Status: Chronic Assessment and Plan: No acute changes at this time. Continue Plavix, Pletal (4) CKD (chronic kidney disease) stage 3, GFR 30-59 ml/min Current Visit: Yes Status: Chronic Assessment and Plan: No labs today. Check BMP in the morning. No complaints, urinating normally (5) Hypertension Current Visit: Yes Status: Chronic Assessment and Plan: Blood pressure borderline low. Asymptomatic. Continue Toprol-XL 50mg daily. (6) COPD (chronic obstructive pulmonary disease) Current Visit: Yes Status: Chronic Assessment and Plan: Patient asymptomatic at this time. Not in acute exacerbation. Continue home inhalers. - Time Spent with Patient Total time spent is greater than 50% in coordination of care (as documented) at patient's floor/unit and/or counseling patient: Internal Medicine: Result - Labs CBC & Chem 7: 01/12/19 04:41 01/12/19 04:41 Consult Discharge Plan - Plan Referrals: Neli Hoover, ORCHID SUPERINTENDENT [Primary Care Provider] - (2) CAD (coronary artery disease) Qualifiers: Coronary Disease-Associated Artery/Lesion type: [place] artery [place] vs. transplanted heart: [place] heart Associated angina: without angina Qualified Code(s): I25.10 - Atherosclerotic heart disease of [place] coronary artery without angina pectoris (5) Hypertension Qualifiers: Hypertension type: essential hypertension Qualified Code(s): I10 - Essential (primary) hypertension (6) COPD (chronic obstructive pulmonary disease) Qualifiers: COPD type: chronic bronchitis Chronic bronchitis type: unspecified Qualified Code(s): J42 - Unspecified chronic bronchitis
[2019-01-13] MEDS: rOPINIRole 0.25 MG TABLET PO SCH (20:20)
[2019-01-14] MEDS: Budesonide/Formoterol 160/4.5 1 PUFF INH IH SCH ×2 (08:04→22:03)
[2019-01-14] MEDS: Piperacillin/Tazobactam 3.375 GM in 0.9 % Sodium Chloride Mini Bag 100 ML IVPB SCH ×3 (08:36→23:26)
[2019-01-14] MEDS: Gabapentin 400 MG CAPSULE PO SCH ×4 (08:37→23:26)
[2019-01-14] MEDS: Furosemide 40 MG TABLET PO SCH ×2 (08:37→16:21)
[2019-01-14] MEDS: Nicotine 21 MG PATCH.TD24 TD SCH ×2 (08:38→17:30)
[2019-01-14] MEDS: Multivit/Ca/Min/Fe/FA 1 TAB TABLET PO SCH (08:38)
[2019-01-14] MEDS: Ranolazine 500 MG TAB.ER.12H PO SCH ×2 (08:38→20:23)
[2019-01-14] MEDS: Isosorbide MONOnitrate (24 HR) 60 MG TAB.ER.24H PO SCH ×2 (08:38→20:24)
[2019-01-14] MEDS: Metoprolol XL (24 HR) Succ 50 MG TAB.ER.24H PO SCH (08:39)
--- NOTE | 2019-01-14 11:23 | Podiatry Progress Note ---
Date of Encounter: 01/14/19 Time of Encounter: 10:00 Subjective Interval history: s/p surgery with Dr. Caballero on . patient in bed resting in no acute distress. says he is tired but otherwise okay. no new problems overnight complains of cough but says it is not that bad now. He says the cough has been present for months and has seen other doctors about it. says he stays off the foot. cultures preliminary GPR and Staph epidermidis well developed and nourished male in no acute distress bandage clean, dry and intact. no strikethrough. no calf pain with squeeze. leg warm to to touch. absent protective sensation. medical management of DM and other comorbid conditions by internal med. c/w Zosyn. f/u cultures. discussed with patient if he gets out of bed he needs to wear the surgical shoe. Objective - Vital Signs Vital Signs: Vital Signs Temp Pulse Resp BP Pulse Ox 01/14/19 10:41 97.4 F L 66 14 103/56 93 01/14/19 08:04 18 94 01/14/19 06:27 97.9 F 74 14 95/65 91 01/13/19 20:44 16 96 01/13/19 19:06 97.5 F L 70 15 93/58 96 01/13/19 17:37 97.7 F 71 14 91/55 94 Intake and Output 01/13/19 01/14/19 01/14/19 22:59 07:59 15:59 Intake Total 240 / 240 Output Total 0 / 0 Balance 240 / 240 Intake: IV Fluids Zosyn 3.375 GM In 0.9 % Sodium Chloride (Mini-Bag +) 100 ML @ 25 mls/hr IVPB Q8HR [facility] Rx#: [id number] Oral 240 / 240 Output: Urine 0 / 0 Other: Meal Breakfast Percent of Meal Consumed 100% Stool Size Stool Consistency Stool Color # Voids - Lab Result Diagrams: 01/12/19 04:41 01/12/19 04:41 Labs: Abnormal lab results MCV 102.1 fL (83.0-100.0) H 01/12/19 04:41 MCH 35.1 pg (28.0-33.3) H 01/12/19 04:41 Plt Count 114 K/mcL (140-400) L 01/12/19 04:41 ESR 48 mm/hr (0-10) H 01/12/19 04:41 Potassium 3.0 mEq/L (3.5-5.1) L 01/12/19 04:41 POC Glucose 120 mg/dL (70-99) H 01/11/19 21:37 C-Reactive Protein 10 mg/L (Less than 10) H 01/12/19 04:41 Microbiology, Last 48 Hours 01/11/19 08:25 Anaerobic Culture - Preliminary Left Great Toe At this time, no anaerobic growth is present. The culture will be finalized after 5 days of incubation. 01/11/19 08:47 Surgical Biopsy Culture - Preliminary Left Foot Staphylococcus epidermidis Gram Positive Rods Gram Positive Rods#2 01/11/19 08:25 Surgical Biopsy Culture - Preliminary Left Great Toe Gram Positive Cocci Gram Positive Rods 01/11/19 08:47 Anaerobic Culture - Preliminary Left Foot Culture is incubating. Consult Discharge Plan - Plan Referrals: Neli Hoover, RETAIL PROJECT MERCHANDISER [Primary Care Provider] -
--- NOTE | 2019-01-14 12:13 | Internal Med Progress Note ---
Hospitalist Progress Note - Encounter Date of Encounter: 01/14/19 Time of Encounter: 12:11 - Subjective Interval History: Patient seen and examined at bedside. Patient has no complaints today. Denies fever, chills. - Exam Vitals: Temp Pulse Resp BP Pulse Ox 97.4 F L 66 14 103/56 93 01/14/19 10:41 01/14/19 10:41 01/14/19 10:41 01/14/19 10:41 01/14/19 10:41 Exam: Heart: Regular rate and rhythm, no murmurs, rubs, gallops Lungs: Clear to auscultation bilaterally, no rales, rhonchi, wheezes Extremity: Left foot: Dressing clean dry and intact - Assessment and Plan (1) Osteomyelitis of toe Status: Acute Assessment and Plan: Intraoperative evidence of osteomyelitis status post resection. Postop day 3. Cultures preliminary positive for staph epi, gram-negative rods, final results pending. Currently on IV antibiotics. Long-term antibiotics per podiatry service. Further management per primary podiatry service (2) CAD (coronary artery disease) Status: Chronic Assessment and Plan: Stable. No chest pain at this time. Continue beta syed, Plavix (3) PAD (peripheral artery disease) Status: Chronic Assessment and Plan: No acute changes at this time. Continue Plavix, Pletal (4) CKD (chronic kidney disease) stage 3, GFR 30-59 ml/min Status: Chronic Assessment and Plan: No labs yesterday. Repeat BMP pending. No complaints, urinating normally (5) Hypertension Status: Chronic Assessment and Plan: Blood pressure borderline low. Asymptomatic. Continue Toprol-XL 50mg daily. (6) COPD (chronic obstructive pulmonary disease) Status: Chronic Assessment and Plan: Patient asymptomatic at this time. Not in acute exacerbation. Continue home inhalers. - Time Spent with Patient Total time spent is greater than 50% in coordination of care (as documented) at patient's floor/unit and/or counseling patient: Internal Medicine: Result - Labs CBC & Chem 7: 01/12/19 04:41 01/12/19 04:41 Consult Discharge Plan - Plan Referrals: Neli Hoover, [employer]IA PUMP OPERATOR [Primary Care Provider] - (2) CAD (coronary artery disease) Qualifiers: Coronary Disease-Associated Artery/Lesion type: [place] artery [place] vs. transplanted heart: [place] heart Associated angina: without angina Qualified Code(s): I25.10 - Atherosclerotic heart disease of [place] coronary artery without angina pectoris (5) Hypertension Qualifiers: Hypertension type: essential hypertension Qualified Code(s): I10 - Essential (primary) hypertension (6) COPD (chronic obstructive pulmonary disease) Qualifiers: COPD type: chronic bronchitis Chronic bronchitis type: unspecified Qualified Code(s): J42 - Unspecified chronic bronchitis
[2019-01-14] MEDS: rOPINIRole 0.25 MG TABLET PO SCH (20:24)
[2019-01-15] MEDS: Metoprolol XL (24 HR) Succ 50 MG TAB.ER.24H PO SCH (07:53)
[2019-01-15] MEDS: Furosemide 40 MG TABLET PO SCH ×2 (07:53→17:04)
[2019-01-15] MEDS: Piperacillin/Tazobactam 3.375 GM in 0.9 % Sodium Chloride Mini Bag 100 ML IVPB SCH ×3 (08:02→23:15)
[2019-01-15] MEDS: Isosorbide MONOnitrate (24 HR) 60 MG TAB.ER.24H PO SCH ×2 (08:03→20:32)
[2019-01-15] MEDS: Ranolazine 500 MG TAB.ER.12H PO SCH ×2 (08:03→20:32)
[2019-01-15] MEDS: Gabapentin 400 MG CAPSULE PO SCH ×4 (08:04→23:15)
[2019-01-15] MEDS: Multivit/Ca/Min/Fe/FA 1 TAB TABLET PO SCH (08:04)
[2019-01-15] MEDS: Nicotine 21 MG PATCH.TD24 TD SCH (08:05)
[2019-01-15 09:50] LABS: BUN/Creatinine Ratio 19 (6-26); Blood Urea Nitrogen 20 mg/dL (8-23); Calcium 10.3 mg/dL (8.6-10.3); Carbon Dioxide 30 mEq/L (23-29); Chloride 103 mEq/L (98-107); Glucose 115 mg/dL (70-105); Osmolality,Calculated 294 (280-300); Potassium 3.3 mEq/L (3.5-5.1); Sodium 140 mEq/L (136-145); eGFR For Non-African Americans > 60 (> 60)
[2019-01-15] MEDS: Budesonide/Formoterol 160/4.5 1 PUFF INH IH SCH ×2 (10:11→22:18)
--- NOTE | 2019-01-15 11:06 | Podiatry Progress Note ---
Date of Encounter: 01/15/19 Time of Encounter: 09:30 - Assessment and Plan (1) Osteomyelitis of toe Status: Acute Assessment: -Post op day #4 #1: Resection of first metatarsal head for biopsy, #2: Sesamoidectomy, #3: Excision of ulceration medial left foot, and #4: Deposition of antibiotic beads by Dr. Caballero on 01/11/2019 -Dressing removed -Incision well approximated both medial aspect and dorsal aspect of foot -No erythema, no edema, no drainage, no signs of dehiscence, no signs of infection noted -Surgical biopsy culture from 01/11/2019 are preliminary and show Staphylococcus epidermidis and Gram Positive Rods -Anaerobic cultures from 01/11/2019 are preliminary and show no growth Plan: -Cleansed with 0.9 NS. and pat dry -Covered incision with adaptic, 4x4 dry gauze, and kerlex. -Secured with paper tape. -Will consult ID for ATB management, recommendations are greatly appreciated -Patient to wear surgical shoe when ambulating Subjective Interval history: Post op day #4 #1: Resection of first metatarsal head for biopsy, #2: Sesamoidectomy, #3: Excision of ulceration medial left foot, and #4: Deposition of antibiotic beads by Dr. Caballero on 01/11/2019 Patient is alert and oriented x 3, no acute distress noted, well nourished. Patient denies any chest pain, shortness of breath, or calf pain. Patient denies any fever, chills, nausea, vomiting, or diarrhea. Dressing dry and intact without any evidence of strikethrough noted. Objective - Vital Signs Vital Signs: Vital Signs Temp Pulse Resp BP Pulse Ox 01/15/19 10:30 97.3 F L 79 20 100/64 96 01/15/19 10:15 16 96 01/15/19 05:06 97.8 F 71 15 87/57 94 01/14/19 22:05 14 98 01/14/19 20:34 98.2 F 76 17 107/73 95 01/14/19 15:17 72 01/14/19 15:10 97.9 F 117 18 102/66 90 Intake and Output 01/14/19 01/15/19 01/15/19 23:59 07:59 15:59 Intake Total 700 / 700 100 / 100 240 / 240 Output Total 650 / 650 425 / 425 0 / 0 Balance 50 / 50 -325 / -325 240 / 240 Intake: IV Fluids 100 / 100 100 / 100 Zosyn 3.375 GM In 0.9 % Sodium 100 / 100 100 / 100 Chloride (Mini-Bag +) 100 ML @ 25 mls/hr IVPB Q8HR [facility] Rx#: [id number] Oral 600 / 600 0 / 0 240 / 240 Output: Urine 650 / 650 425 / 425 0 / 0 Other: Meal Dinner Breakfast Percent of Meal Consumed 100% 100% Stool Size Moderate Stool Consistency soft Stool Color Brown # Bowel Movements 1 - Exam Exam: Constitutional: alert and oriented x 3, no acute distress noted Vascular: 12/11 PT/DP pulse, cap refill less than 3 seconds, no pain with calf squeeze, mild edema noted to left foot 11/10 Neurological: Diminished protective sensation, abnormal proprioception dorsiflexion/plantar flexion Dermatological: Surgical incision to left 1st metatarsal medial and dorsal aspect of foot with sutures intact, well approximated. No signs of drainage. No signs of erythema. No signs of infection. No streaking noted. Musculoskeletal: 01/09 ,muscle strength and normal tone noted LLE - Lab Result Diagrams: 01/12/19 04:41 01/15/19 04:00 Labs: Abnormal lab results MCV 102.1 fL (83.0-100.0) H 01/12/19 04:41 MCH 35.1 pg (28.0-33.3) H 01/12/19 04:41 Plt Count 114 K/mcL (140-400) L 01/12/19 04:41 ESR 48 mm/hr (0-10) H 01/12/19 04:41 Potassium 3.3 mEq/L (3.5-5.1) L 01/15/19 04:00 Carbon Dioxide 30 mEq/L (23-29) H 01/15/19 04:00 Glucose 115 mg/dL (70-105) H 01/15/19 04:00 POC Glucose 120 mg/dL (70-99) H 01/11/19 21:37 C-Reactive Protein 10 mg/L (Less than 10) H 01/12/19 04:41 Microbiology, Last 48 Hours 01/11/19 08:47 Anaerobic Culture - Preliminary Left Foot At this time, no anaerobic growth is present. The culture will be finalized after 5 days of incubation. 01/11/19 08:25 Surgical Biopsy Culture - Preliminary Left Great Toe Staphylococcus epidermidis Gram Positive Rods 01/11/19 08:25 Wound Culture - Final Left Great Toe 01/11/19 08:47 Surgical Biopsy Culture - Preliminary Left Foot Staphylococcus epidermidis Gram Positive Rods Gram Positive Rods#2 01/11/19 08:25 Anaerobic Culture - Preliminary Left Great Toe At this time, no anaerobic growth is present. The culture will be finalized after 5 days of incubation. Consult Discharge Plan - Plan Referrals: Neli Hoover, EMBEDDED SYSTEMS ENGINEER [Primary Care Provider] -
--- NOTE | 2019-01-15 17:38 | Infectious Disease Consult ---
Date of Encounter: 01/15/19 Time of Encounter: 17:33 Assessment and Plan (1) Osteomyelitis of toe Status: Acute Assessment and plan: S/P resection of first metatarsal head and biopsy, sesamoidectomy, excision of ulceration medial left foot and the position of antibiotic beads 01/11/19 intra op cultures Grew MRSE from two different sites and 2 different GPR (propionibacterium propionicum) currently patient on zosyn At this point I am not certain if the CoNS is infectious or a colonizer but the fact that it grew from two different intra op specimen, makes me worry about it being a nosocomial infection I would treat for both organisms with vancomycin/cefotetan for now and see how patient does await cultures to finalize goal vancomycin trough around 15 monitor kidney function closely will need picc line prior to d/c (2) CAD (coronary artery disease) Status: Chronic Qualifiers: Coronary Disease-Associated Artery/Lesion type: [place] artery [place] vs. transplanted heart: [place] heart Associated angina: without angina Qualified Code(s): I25.10 - Atherosclerotic heart disease of [place] coronary artery without angina pectoris (3) PAD (peripheral artery disease) Status: Chronic (4) COPD (chronic obstructive pulmonary disease) Status: Chronic Qualifiers: COPD type: chronic bronchitis Chronic bronchitis type: unspecified Qualified Code(s): J42 - Unspecified chronic bronchitis (5) Allergy to antibiotic Status: Acute Assessment and plan: allergy to doxycycline (6) Morbid obesity with BMI of 40.0-44.9, adult Status: Acute Assessment and plan: BMI 44.2 Infectious Disease HPI - Data of Consult Patient: new to practice Consult date: 01/15/19 Requesting Physician: Sergei Caballero, Primary Care Provider: Neli Hoover CNP - Consult Narrative Reason for consult: "antibiotics recommendations and management" History of present illness: Mr. Baez is a 63 year old male Patient is a 63-year-old gentleman who presented to [facility] 01/11/2019 for resection of first metatarsal head and biopsy, sesamoidectomy, excision of ulceration medial left foot and the position of antibiotic beads. We are consult today on 01/15/2019 for antibiotics recommendation Patient is 60-year-old gentleman with past medical history mentioned below including coronary disease, peripheral artery disease, CHF, COPD, history of DVT, hypertension, hyperlipidemia who apparently has been followed by podiatry and was noted to have osteomyelitis of the left foot great toe. Patient was admitted for surgical evaluation by Dr. Caballero. Patient underwent a resection of first metatarsal head and biopsy, sesamoidectomy, excision of ulceration medial left foot and the position of antibiotic beads on 01/11/[address] Caballero. Intra-Op cultures were positive for staph epi from 2 different surgical size and gram-positive rods 2 different organisms also from 2 different sites in the left toe. No pathology report is available. Currently patient is on Zosyn. We were asked to evaluate the patient and make further recommendations. Currently patient appears comfortable laying in bed alert oriented answers questions. Man. He is complaining of severe pain in bilateral hands due to poor vasculature. He tells me that so his pain and his feet started. Patient actually wearing socks involving hands. CC: Sergei Caballero, Past Med Surg Social Fam HX - Past Medical History Medical history: CHF, COPD, coronary artery disease, DVT, hyperlipidemia, hypertension, peripheral artery disease, renal disease Additional medical history: Borderline DM, Polyneuropathy Psychiatric history: anxiety, depression - Past Surgical History Surgical History: cataract Additional surgical history: LEft CEA, Triple vessel CABG, Cholecystectomy, Tonsillectomy, cataract removal, I/D left foot 02/21/2018 - Social History Smoking Status: Current every day smoker Packs per day: 1 Smokeless Tobacco Status: No Alcohol use: none Drug use: none - Family History Father Adopted: No Family Member Ethnicity: Non- Living Status: Still Living Hx Family Cardiac Disorders: Yes Hx Family Respiratory Disorders: No Hx Family Cancer: No Hx Family GI Disorders: No Hx Family Endocrine Disorder: Yes Hx Family Neuromuscular Disorders: No Hx Family Neurologic Disorders: No Hx Family HEENT Disorders: No Hx Family Autoimmune Disorders: No Mother Adopted: No Family Member Ethnicity: Non- Living Status: Age at : 63 Cause of : renal failure Hx Family Cardiac Disorders: Yes Hx Family Respiratory Disorders: Yes Hx Family Cancer: No Hx Family GI Disorders: No Hx Family Genitourinary Disorders: Yes Hx Family Endocrine Disorder: Yes Hx Family Musculoskeletal Disorders: No Hx Family Neuromuscular Disorders: No Hx Family Neurologic Disorders: No Hx Family HEENT Disorders: No Hx Family Autoimmune Disorders: No Hx Family Reproductive Disorders: No Hx Family Psychosocial Disorders: No Hx Family Medical Disorders: Yes Infectious Disease-CN:Meds RX: Albuterol Sulfate [Ventolin Hfa] 2 puff IH BID 11/14/18 [History] RX: Allopurinol [Zyloprim 300 MG] 300 mg PO DAILY 11/14/18 [History] RX: BuPROPion [Wellbutrin] 100 mg PO DAILY 11/14/18 [History] RX: Calcitriol 0.5 mcg PO BID 11/14/18 [History] RX: Cilostazol [Pletal] 100 mg PO BID 11/14/18 [History] RX: Clobetasol Propionate 0.05% [Temovate] 1 appl TP DAILY PRN 11/14/18 [History] RX: Clopidogrel [Plavix] 75 mg PO DAILY 11/14/18 [History] RX: Ezetimibe 10 mg PO DAILY 11/14/18 [History] RX: Fluticasone/Vilanterol [Breo Ellipta 200-25 Mcg INH] 1 puff IH DAILY 11/14/18 [History] RX: Furosemide [Lasix] 80 mg PO BID 11/14/18 [History] RX: Gabapentin [Neurontin] 800 mg PO 0800,1300,1800,2300 11/14/18 [History] RX: Ipratropium/Albuterol Neb [Duoneb] 3 ml IH Q6HR PRN 11/14/18 [History] RX: Lovastatin 40 mg PO DAILY 11/14/18 [History] RX: Multivit,Th Iron,Other Min [Therems-M] 1 tab PO DAILY 11/14/18 [History] RX: Nitroglycerin [Nitrostat] 0.4 mg SL AD PRN 11/14/18 [History] RX: Omeprazole [PriLOSEC] 20 mg PO DAILY 11/14/18 [History] RX: Potassium Chloride 20 meq PO BID 11/14/18 [History] RX: Ranolazine [Ranexa] 500 mg PO BID 11/14/18 [History] RX: Ropinirole HCl [Requip] 0.5 mg PO HS 11/14/18 [History] Isosorbide MONOnitrate (24 HR) [Imdur] 60 mg PO BID 01/11/19 [History] Metoprolol Succinate [Toprol Xl] 50 mg PO BID 01/12/19 [History] Allergy/AdvReac Type Severity Reaction Status Date / Time doxycycline AdvReac Nausea Verified 01/11/19 07:29 esomeprazole [From Nexium] AdvReac Nausea Verified 01/11/19 07:29 Review of systems: 10 point review of systems done, negative other for what is mentioned in history of present illness Exam - Constitutional Vitals: Temp Pulse Resp BP Pulse Ox 98.0 F 88 16 100/64 93 01/15/19 14:17 01/15/19 14:17 01/15/19 14:17 01/15/19 10:30 01/15/19 14:17 General appearance: no acute distress, no febrile - Head Head exam: Present: atraumatic, normocephalic - Eye Eye exam: Present: EOMI, PERRL, sclera anicteric - ENT ENT exam: Present: mucous membranes moist - Neck Neck exam: Present: full ROM. Absent: meningismus - Respiratory Respiratory exam: Present: CTAB. Absent: rhonchi, wheezes - Cardiovascular Cardiovascular exam: Present: RRR, +S1, +S2 - GI/Abdominal GI/Abdominal exam: Present: distended, hypoactive bowel sounds, soft - Extremities Exam Extremities exam: Present: full ROM. Absent: joint swelling - Neurological Exam Neurological exam: Present: alert, oriented X3. Absent: speech deficit - Psychiatric Psychiatric exam: Present: normal affect, normal mood - Skin Skin exam: Present: normal color. Absent: rash Infectious Disease CN: Results - Labs CBC & Chem 7: 01/12/19 04:41 01/15/19 04:00 Cultures: Cultures 01/11/19 08:25 Surgical Biopsy Culture - Final Left Great Toe Staphylococcus epidermidis Gram Positive Rods 01/11/19 08:47 Anaerobic Culture - Preliminary Left Foot At this time, no anaerobic growth is present. The culture will be finalized after 5 days of incubation. 01/11/19 08:25 Wound Culture - Final Left Great Toe 01/11/19 08:47 Surgical Biopsy Culture - Preliminary Left Foot Staphylococcus epidermidis Gram Positive Rods Gram Positive Rods#2 01/11/19 08:25 Anaerobic Culture - Preliminary Left Great Toe At this time, no anaerobic growth is present. The culture will be finalized after 5 days of incubation. Consult Discharge Plan - Plan Referrals: Neli Hoover, PLUGGING MACHINE OPERATOR [Primary Care Provider] -
--- NOTE | 2019-01-15 18:15 | Internal Med Progress Note ---
Hospitalist Progress Note - Encounter Date of Encounter: 01/15/19 Time of Encounter: 18:13 - Subjective Interval History: Patient seen and examined at bedside. Patient has no complaints of muscle pain. Denies fever or chills. - Exam Vitals: Temp Pulse Resp BP Pulse Ox 98.0 F 88 16 100/64 93 01/15/19 14:17 01/15/19 14:17 01/15/19 14:17 01/15/19 10:30 01/15/19 14:17 Exam: Heart: Regular rate and rhythm, no murmurs, rubs, gallops Lungs: Clear to auscultation bilaterally, no rales, rhonchi, wheezes Extremity: Left foot: Dressing clean dry and intact - Assessment and Plan (1) Osteomyelitis of toe Current Visit: No Status: Acute Assessment and Plan: Intraoperative evidence of osteomyelitis status post resection. Postop day 4. Cultures preliminary positive for staph epi, gram-negative rods, final results pending. Currently on IV antibiotics. Agree with ID consult Long-term antibiotics per ID. Further management per primary podiatry service/ID (2) CAD (coronary artery disease) Current Visit: No Status: Chronic Assessment and Plan: Stable. No chest pain at this time. Continue beta syed, Plavix (3) PAD (peripheral artery disease) Current Visit: No Status: Chronic Assessment and Plan: No acute changes at this time. Continue Plavix, Pletal (4) CKD (chronic kidney disease) stage 3, GFR 30-59 ml/min Current Visit: No Status: Chronic Assessment and Plan: Renal function normal. No complaints, urinating normally (5) Hypertension Current Visit: No Status: Chronic Assessment and Plan: Blood pressure borderline low. Asymptomatic. Continue Toprol-XL 50mg daily. (6) COPD (chronic obstructive pulmonary disease) Current Visit: No Status: Chronic Assessment and Plan: Patient asymptomatic at this time. Not in acute exacerbation. Continue home inhalers. (7) Hypokalemia Current Visit: No Status: Resolved Assessment and Plan: Potassium 3.3 today, replete orally - Time Spent with Patient Total time spent is greater than 50% in coordination of care (as documented) at patient's floor/unit and/or counseling patient: Internal Medicine: Result - Labs CBC & Chem 7: 01/12/19 04:41 01/15/19 04:00 Labs: BMP 01/15/19 04:00 Sodium 140 Potassium 3.3 L Chloride 103 Carbon Dioxide 30 H BUN 20 Creatinine 1.07 Glucose 115 H Calcium 10.3 Consult Discharge Plan - Plan Referrals: Neli Hoover CNP [Primary Care Provider] - (2) CAD (coronary artery disease) Qualifiers: Coronary Disease-Associated Artery/Lesion type: [place] artery [place] vs. transplanted heart: [place] heart Associated angina: without angina Qualified Code(s): I25.10 - Atherosclerotic heart disease of [place] coronary artery without angina pectoris (5) Hypertension Qualifiers: Hypertension type: essential hypertension Qualified Code(s): I10 - Essential (primary) hypertension (6) COPD (chronic obstructive pulmonary disease) Qualifiers: COPD type: chronic bronchitis Chronic bronchitis type: unspecified Qualified Code(s): J42 - Unspecified chronic bronchitis
[2019-01-15] MEDS: rOPINIRole 0.25 MG TABLET PO SCH (20:32)
[2019-01-15] MEDS: Nitroglycerin 0.4 MG TAB.SUBL SL PRN ×2 (22:44→22:51)
[2019-01-16] MEDS: Budesonide/Formoterol 160/4.5 1 PUFF INH IH SCH ×2 (08:14→20:41)
--- NOTE | 2019-01-16 08:50 | Infectious Disease Progress No ---
Date of Encounter: 01/16/19 Time of Encounter: 09:00 - Assessment and Plan (1) Osteomyelitis of toe Current Visit: No Status: Acute 01/11/19 - POD #5 #1: Resection of first metatarsal head for biopsy, #2: Sesamoidectomy, #3: Excision of ulceration medial left foot, and #4: Deposition of antibiotic beads by Dr. Caballero on 01/11/2019 01/11/19 L Great Toe culture: MRSE, GPR (propionibacterium propionicum); negative anaerobe 01/11/19 L foot ulcer culture: MRSE, GPRx2 (sent to [facility] for ID and Sens on 01/16/19); anaerobic NGTD Current Abx Zosyn (day 6) No pathology report available Patient is afebrile, no increase in pain Uncertain if CoNS infectious vs colonizer Concern for nosocomial infection given positive cultures at 2 different intra-op sites Plan: -Continue vancomycin (day 1) pending cultures and clinical course; goal trough 15 -Monitor kidney function -Will require PICC line placement prior to d/c (2) CAD (coronary artery disease) Current Visit: No Status: Chronic 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 Stable with recent CP treated with nitro (2 doses) on 01/15/19. Plan: -Management per primary team Qualifiers: Coronary Disease-Associated Artery/Lesion type: [place] artery [place] vs. transplanted heart: [place] heart Associated angina: without angina Qualified Code(s): I25.10 - Atherosclerotic heart disease of [place] coronary artery without angina pectoris (3) PAD (peripheral artery disease) Current Visit: No Status: Chronic Hx of PAD with related extremity neuropathy. No acute changes. Plan: -Management per primary team (4) COPD (chronic obstructive pulmonary disease) Current Visit: No Status: Chronic Patient not in acute exacerbation. Plan: -Management per primary team Qualifiers: COPD type: chronic bronchitis Chronic bronchitis type: unspecified Qualified Code(s): J42 - Unspecified chronic bronchitis (5) Morbid obesity with BMI of 40.0-44.9, adult Current Visit: No Status: Acute BMI 44.3 Plan: -Management per primary team - Subjective Interval history: The patient was seen and examined this morning resting comfortably in bed. There were no acute episodes over night. He admits some night sweating which is chronic for him otherwise he denies any increased pain in the L foot, fever, chills, nausea, vomiting, cough, constipation. Infect Dis PN-Objective Data - Labs CBC & Chem 7: 01/12/19 04:41 01/17/19 03:20 Labs: Laboratory Results - last 24 hr 01/15/19 04:00 Sodium 140 Potassium 3.3 L Chloride 103 Carbon Dioxide 30 H BUN 20 Creatinine 1.07 Est GFR ( Amer) > 60 Est GFR (Non-Af Amer) > 60 BUN/Creatinine Ratio 19 Glucose 115 H Calculated Osmolality 294 Calcium 10.3 Cultures: Cultures 01/11/19 08:25 Surgical Biopsy Culture - Final Left Great Toe Staphylococcus epidermidis Gram Positive Rods 01/11/19 08:47 Anaerobic Culture - Preliminary Left Foot At this time, no anaerobic growth is present. The culture will be finalized after 5 days of incubation. 01/11/19 08:25 Wound Culture - Final Left Great Toe 01/11/19 08:47 Surgical Biopsy Culture - Preliminary Left Foot Staphylococcus epidermidis Gram Positive Rods Gram Positive Rods#2 01/11/19 08:25 Anaerobic Culture - Preliminary Left Great Toe At this time, no anaerobic growth is present. The culture will be finalized after 5 days of incubation. Exam - Constitutional Vitals: Temp Pulse Resp BP Pulse Ox 97.4 F L 87 18 113/69 95 01/16/19 05:13 01/16/19 05:13 01/16/19 08:14 01/16/19 05:13 01/16/19 08:14 Exam: Gen.: Vitals noted. Patient in no acute distress Head: Normocephalic, atraumatic ENT: mucosa pink, edentulous, no lesions Neck: Supple. No adenopathy. Cardiac: RRR, no murmur, +S1/S2 distant sounds due to body habitus Pulmonary: rhonchi in abigail upper lung smith, diffuse expiratory wheeze, no rales, equal chest expansion Abdomen: BSx4, obese, soft, nontender, no guarding or masses MSK: no joint swelling noted Skin: no other rashes, lesions Extremities: L foot with dressing in place, clean, dry, intact, able to curl toes, no BLE edema, nontender calf, no cyanosis or clubbing Neuro: A&Ox3; LLE with only minimal proprioception and without fine touch sensation, moves all extremities Psych: Appropriate mood Consult Discharge Plan - Plan Referrals: Neli Hoover, STRADDLE BUG DRIVER [Primary Care Provider] - - Attending Attestation I examined this patient and my medical decision-making was reviewed with the Resident Physician. I agree with the documented findings, disposition and treatment plan as described except to the extent set forth below. Patient seen and examined. Agree with above subjective evaluation. Physical exam: HEENT PERRL EOMI Lungs clear to auscultation bilaterally no wheezing Cardiovascular regular rate and rhythm Abdomen morbidly obese soft no guarding Extremities: Bilateral hand pain from poor vasculature. L foot with dressing in place, clean, dry, intact, able to curl toes, no BLE edema, nontender calf, no cyanosis or clubbing A/P: Osteomyelitis of the toe status post resection of first metatarsal head and biopsy, sesamoidectomy, excision of ulceration medial left foot and position of antibiotics bead 01/11/2019 Intra-Op cultures grew methicillin-resistant staph epi and Propionibacterium propionicum Recommendations: at this point continue vancomycin and zosyn on d/c consider vancomycin and cefotetan duration of treatment 6 weeks goal vanc trough 15 monitor labs and for drug toxicity
[2019-01-16] MEDS: Piperacillin/Tazobactam 3.375 GM in 0.9 % Sodium Chloride Mini Bag 100 ML IVPB SCH ×3 (08:56→23:33)
[2019-01-16] MEDS: Ranolazine 500 MG TAB.ER.12H PO SCH ×2 (08:56→20:50)
[2019-01-16] MEDS: Gabapentin 400 MG CAPSULE PO SCH ×4 (08:56→23:32)
[2019-01-16] MEDS: Furosemide 40 MG TABLET PO SCH ×2 (08:56→17:50)
[2019-01-16] MEDS: Multivit/Ca/Min/Fe/FA 1 TAB TABLET PO SCH (08:57)
[2019-01-16] MEDS: Nicotine 21 MG PATCH.TD24 TD SCH (08:57)
[2019-01-16] MEDS: Metoprolol XL (24 HR) Succ 25 MG TAB.ER.24H PO SCH (08:57)
[2019-01-16] MEDS: Isosorbide MONOnitrate (24 HR) 60 MG TAB.ER.24H PO SCH ×2 (08:57→20:52)
--- NOTE | 2019-01-16 13:12 | Podiatry Progress Note ---
Date of Encounter: 01/16/19 Time of Encounter: 12:30 - Assessment and Plan (1) Osteomyelitis of toe Current Visit: No Status: Acute Assessment: -Post op day #5 #1: Resection of first metatarsal head for biopsy, #2: Sesamoidectomy, #3: Excision of ulceration medial left foot, and #4: Deposition of antibiotic beads by Dr. Caballero on 01/11/2019 -Dressing removed -Incision well approximated both medial aspect and dorsal aspect of foot -No erythema, no edema, no drainage, no signs of dehiscence, no signs of infection noted -Surgical biopsy left foot culture from 01/11/2019 preliminary and show Staphylococcus epidermidis and Gram Positive Rods -Anaerobic cultures from 01/11/2019 are preliminary and show no growth -Surgical biopsy culture left great toe final and shows evidence of Staphylococcus epidermidis and Gram Positive Rods Plan: -Cleansed with 0.9 NS. and pat dry -Covered incision with adaptic, 4x4 dry gauze, and kerlex. -Secured with paper tape. -ID managing antibiotic therapy, culture results preliminary, recommendations are appreciated -Patient to wear surgical shoe when ambulating -Change dressing daily, wound care orders placed -Recommend Extended Care Facility after discharge for wound care and rehab if patient is agreeable -Follow up with Dr. Caballero within one week after discharge, call office for appointment -Will continue to monitor Subjective Interval history: Post op day #5 #1: Resection of first metatarsal head for biopsy, #2: Sesamoidectomy, #3: Excision of ulceration medial left foot, and #4: Deposition of antibiotic beads by Dr. Caballero on 01/11/2019 Patient is alert and oriented x 3, no acute distress noted, well nourished. Patient denies any shortness of breath or calf pain. Patient does report chest pain last night that was resolved with two NTG. He reports this is not uncommon for him and that he usually has chest pain when he is anxious. He denies chest pain since last night. Patient denies any fever, chills, nausea, vomiting, or diarrhea. Dressing dry and intact without any evidence of strike through noted. Objective - Vital Signs Vital Signs: Vital Signs Temp Pulse Resp BP Pulse Ox 01/16/19 08:14 18 95 01/16/19 05:13 97.4 F L 87 15 113/69 96 01/15/19 22:57 92/57 01/15/19 22:50 90 106/68 01/15/19 22:45 91 126/79 01/15/19 22:18 18 94 01/15/19 20:03 98.1 F 81 16 113/77 94 01/15/19 14:17 98.0 F 88 16 93 Intake and Output 01/15/19 01/16/19 01/16/19 23:59 07:59 15:59 Intake Total 340 / 340 100 / 100 600 / 600 Output Total 0 / 0 600 / 600 Balance 340 / 340 -500 / -500 600 / 600 Intake: IV Fluids 100 / 100 100 / 100 Zosyn 3.375 GM In 0.9 % Sodium 100 / 100 100 / 100 Chloride (Mini-Bag +) 100 ML @ 25 mls/hr IVPB Q8HR [facility] Rx#: [id number] Oral 240 / 240 0 / 0 600 / 600 Output: Urine 0 / 0 600 / 600 Other: Meal Dinner Breakfast Percent of Meal Consumed 100% 100% Stool Size Moderate Small Stool Consistency soft loose Stool Characteristics Normal for Patient Stool Color Brown Brown # Voids 1 1 # Bowel Movements 1 1 Weight 124.6 kg Patient Weight 01/16/19 23:59 Weight 124.6 kg - Exam Exam: Constitutional: Alert and oriented x 3, no acute distress noted Vascular: 2/4 PT/DP pulse, cap refill less than 3 seconds, no pain with calf squeeze, mild edema noted to left foot 1/4 Neurological: Diminished protective sensation, abnormal proprioception dorsiflexion/plantar flexion Dermatological: Surgical incision to left 1st metatarsal medial and dorsal aspect of foot with sutures intact, well approximated. No signs of drainage. No signs of erythema. No signs of infection. No streaking noted. Musculoskeletal: 3/5 muscle strength and normal tone noted LLE - Lab Result Diagrams: 01/12/19 04:41 01/15/19 04:00 Labs: Abnormal lab results MCV 102.1 fL (83.0-100.0) H 01/12/19 04:41 MCH 35.1 pg (28.0-33.3) H 01/12/19 04:41 Plt Count 114 K/mcL (140-400) L 01/12/19 04:41 ESR 48 mm/hr (0-10) H 01/12/19 04:41 Potassium 3.3 mEq/L (3.5-5.1) L 01/15/19 04:00 Carbon Dioxide 30 mEq/L (23-29) H 01/15/19 04:00 Glucose 115 mg/dL (70-105) H 01/15/19 04:00 POC Glucose 120 mg/dL (70-99) H 01/11/19 21:37 Magnesium 1.4 mg/dL (1.6-2.6) L 01/16/19 11:14 C-Reactive Protein 10 mg/L (Less than 10) H 01/12/19 04:41 Microbiology, Last 48 Hours 01/11/19 08:47 Surgical Biopsy Culture - Preliminary Left Foot Staphylococcus epidermidis Gram Positive Rods Gram Positive Rods#2 01/11/19 08:25 Surgical Biopsy Culture - Final Left Great Toe Staphylococcus epidermidis Gram Positive Rods 01/11/19 08:47 Anaerobic Culture - Preliminary Left Foot At this time, no anaerobic growth is present. The culture will be finalized after 5 days of incubation. 01/11/19 08:25 Wound Culture - Final Left Great Toe 01/11/19 08:25 Anaerobic Culture - Preliminary Left Great Toe At this time, no anaerobic growth is present. The culture will be finalized after 5 days of incubation. Consult Discharge Plan - Plan Referrals: Neli Hoover CNP [Primary Care Provider] -
--- NOTE | 2019-01-16 13:27 | Internal Med Progress Note ---
Hospitalist Progress Note - Encounter Date of Encounter: 01/16/19 Time of Encounter: 13:25 - Subjective Interval History: Patient seen and examined at bedside. Patient has no complaints. He is asking when he go home. Denies fever, chills. - Exam Vitals: Temp Pulse Resp BP Pulse Ox 97.4 F L 87 18 113/69 95 01/16/19 05:13 01/16/19 05:13 01/16/19 08:14 01/16/19 05:13 01/16/19 08:14 Exam: Heart: Regular rate and rhythm, no murmurs, rubs, gallops Lungs: Clear to auscultation bilaterally, no rales, rhonchi, wheezes Extremity: Left foot: Dressing clean dry and intact - Assessment and Plan (1) Osteomyelitis of toe Current Visit: No Status: Acute Assessment and Plan: Intraoperative evidence of osteomyelitis status post resection. Postop day 5. Cultures preliminary positive for staph epi, gram-negative rods, final results pending. Currently on IV antibiotics. Agree with ID consult Long-term antibiotics per ID. Further management per primary podiatry service/ID (2) CAD (coronary artery disease) Current Visit: No Status: Chronic Assessment and Plan: Stable. No chest pain at this time. Continue beta syed, Plavix (3) PAD (peripheral artery disease) Current Visit: No Status: Chronic Assessment and Plan: No acute changes at this time. Continue Plavix, Pletal (4) CKD (chronic kidney disease) stage 3, GFR 30-59 ml/min Current Visit: No Status: Chronic Assessment and Plan: Renal function normal. No complaints, urinating normally (5) Hypertension Current Visit: No Status: Chronic Assessment and Plan: Blood pressure borderline low. Asymptomatic. Continue Toprol-XL 50mg daily. (6) COPD (chronic obstructive pulmonary disease) Current Visit: No Status: Chronic Assessment and Plan: Patient asymptomatic at this time. Not in acute exacerbation. Continue home inhalers. (7) Hypokalemia Current Visit: No Status: Resolved Assessment and Plan: Potassium 3.3 today, replete orally, recheck tomorrow (8) Hypomagnesemia Current Visit: No Status: Acute Assessment and Plan: Noted to be 1.4 today. We will give 4 g IV. Recheck tomorrow. Likely contributing to hypokalemia as well. - Time Spent with Patient Total time spent is greater than 50% in coordination of care (as documented) at patient's floor/unit and/or counseling patient: Internal Medicine: Result - Labs CBC & Chem 7: 01/12/19 04:41 01/15/19 04:00 Consult Discharge Plan - Plan Referrals: Neli Hoover CNP [Primary Care Provider] - (2) CAD (coronary artery disease) Qualifiers: Coronary Disease-Associated Artery/Lesion type: [place] artery [place] vs. t ransplanted heart: [place] heart Associated angina: without angina Qualified Code(s): I25.10 - Atherosclerotic heart disease of [place] coronary artery without angina pectoris (5) Hypertension Qualifiers: Hypertension type: essential hypertension Qualified Code(s): I10 - Essential (primary) hypertension (6) COPD (chronic obstructive pulmonary disease) Qualifiers: COPD type: chronic bronchitis Chronic bronchitis type: unspecified Qualified Code(s): J42 - Unspecified chronic bronchitis
[2019-01-16] MEDS: rOPINIRole 0.25 MG TABLET PO SCH (20:51)
[2019-01-17 03:48] LABS: BUN/Creatinine Ratio 25 (6-26); Blood Urea Nitrogen 30 mg/dL (8-23); Carbon Dioxide 28 mEq/L (23-29); Chloride 104 mEq/L (98-107); Glucose 106 mg/dL (70-105); Magnesium 1.4 mg/dL (1.6-2.6); Osmolality,Calculated 293 (280-300); Potassium 3.3 mEq/L (3.5-5.1); Sodium 138 mEq/L (136-145); eGFR For Non-African Americans > 60 (> 60)
[2019-01-17] MEDS: Budesonide/Formoterol 160/4.5 1 PUFF INH IH SCH ×2 (07:41→20:00)
--- NOTE | 2019-01-17 09:47 | Infectious Disease Progress No ---
Date of Encounter: 01/17/19 Time of Encounter: 09:00 - Assessment and Plan (1) Osteomyelitis of toe Current Visit: Yes Status: Acute 01/11/19 - POD #6 #1: Resection of first metatarsal head for biopsy, #2: Sesamoidectomy, #3: Excision of ulceration medial left foot, and #4: Deposition of antibiotic beads by Dr. Caballero on 01/11/2019 01/11/19 L Great Toe culture: MRSE, GPR (propionibacterium propionicum); negative anaerobe 01/11/19 L foot ulcer culture: MRSE, GPRx2 (sent to [facility] for ID and Sens on 01/16/19); anaerobic NGTD Current Abx Zosyn (day 7) No pathology report available PICC in place, R arm Cr clearance 112 (adjusted range 58-79) Patient is afebrile, no increase in pain Uncertain if CoNS infectious vs colonizer Concern for nosocomial infection given positive cultures at 2 different intra-op sites Recommendations: -Continue zosyn (day 7), vancomycin (day 2) pending cultures and clinical course; goal trough 15 -Monitor kidney function (2) CAD (coronary artery disease) Current Visit: No Status: Chronic 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 Non-radiating CP episode prior evening that self-resolved, otherwise stable with recent CP treated with nitro (2 doses) on 01/15/19. Plan: -Management per primary team Qualifiers: Coronary Disease-Associated Artery/Lesion type: [place] artery [place] vs. transplanted heart: [place] heart Associated angina: without angina Qualified Code(s): I25.10 - Atherosclerotic heart disease of [place] coronary artery with out angina pectoris (3) PAD (peripheral artery disease) Current Visit: No Status: Chronic Hx of PAD with related extremity neuropathy. No acute changes. Plan: -Management per primary team (4) COPD (chronic obstructive pulmonary disease) Current Visit: No Status: Chronic Patient not in acute exacerbation. Plan: -Management per primary team Qualifiers: COPD type: chronic bronchitis Chronic bronchitis type: unspecified Qualified Code(s): J42 - Unspecified chronic bronchitis (5) Morbid obesity with BMI of 40.0-44.9, adult Current Visit: No Status: Acute BMI 44.3 Plan: -Management per primary team - Subjective Interval history: The patient was seen and examined this morning resting comfortably in bed. He admits an episode of chest pain during the prior night that worsened as he rolled onto his R side that did not radiate any where but this eventually r esolved on its own. He also admits some loose BMs however this is improved from his usual diarrhea during the past months that has been more liquid, >3 episodes per day. The patient denies any increased pain in the L foot, fever, chills, nausea, vomiting, cough, constipation. Infect Dis PN-Objective Data - Labs CBC & Chem 7: 01/12/19 04:41 01/17/19 03:20 Labs: Laboratory Results - last 24 hr 01/16/19 01/17/19 11:14 03:20 Sodium 138 Potassium 3.3 L Chloride 104 Carbon Dioxide 28 BUN 30 H Creatinine 1.19 Est GFR ( Amer) > 60 Est GFR (Non-Af Amer) > 60 BUN/Creatinine Ratio 25 Glucose 106 H Calculated Osmolality 293 Calcium 11.0 H Magnesium 1.4 L 1.4 L Cultures: Cultures 01/11/19 08:25 Anaerobic Culture - Final Left Great Toe No anaerobes were recovered. 01/11/19 08:47 Anaerobic Culture - Preliminary Left Foot At this time, no anaerobic growth is present. The culture will be finalized after 5 days of incubation. 01/11/19 08:47 Surgical Biopsy Culture - Preliminary Left Foot Staphylococcus epidermidis Gram Positive Rods Gram Positive Rods#2 01/11/19 08:25 Surgical Biopsy Culture - Final Left Great Toe Staphylococcus epidermidis Gram Positive Rods 01/11/19 08:25 Wound Culture - Final Left Great Toe Exam - Constitutional Vitals: Temp Pulse Resp BP Pulse Ox 97.8 F 82 16 95/55 95 01/17/19 07:51 01/17/19 07:51 01/17/19 07:51 01/17/19 07:51 01/17/19 07:51 Exam: Gen.: Vitals noted. Patient in no acute distress Head: Normocephalic, atraumatic ENT: mucosa pink, edentulous, no lesions Neck: Supple. No adenopathy. Cardiac: RRR, no murmur, +S1/S2 distant sounds due to body habitus Pulmonary: diffuse expiratory wheeze, no rales, rhonchi equal chest expansion Abdomen: BSx4, obese, soft, nontender, no guarding or masses MSK: no joint swelling noted Skin: no other rashes, lesions Extremities: L foot with dressing in place, clean, dry, intact, able to curl toes, no BLE edema, nontender calf, no cyanosis or clubbing Neuro: A&Ox3; LLE with only minimal proprioception at big toe, no proprioception at other digits and without fine touch sensation, moves all extremities Psych: Appropriate mood Consult Discharge Plan - Plan Referrals: Neli Hoover, [employer] [Primary Care Provider] - - Attending Attestation I examined this patient and my medical decision-making was reviewed with the Resident Physician. I agree with the documented findings, disposition and treatment plan as described except to the extent set forth below. Patient seen and examined. Agree with above subjective evaluation. Physical exam: HEENT PERRL EOMI Lungs clear to auscultation bilaterally no wheezing Cardiovascular regular rate and rhythm Abdomen morbidly obese soft no guarding Extremities: Bilateral hand pain from poor vasculature. L foot with dressing in place, clean, dry, intact, able to curl toes, no BLE edema, nontender calf, no cyanosis or clubbing A/P: Osteomyelitis of the toe status post resection of first metatarsal head and biopsy, sesamoidectomy, excision of ulceration medial left foot and position of antibiotics bead 01/11/2019 Intra-Op cultures grew methicillin-resistant staph epi and Propionibacterium propionicum Recommendations: at this point continue vancomycin and zosyn on d/c consider vancomycin and cefotetan duration of treatment 6 weeks goal vanc trough 15 monitor labs and for drug toxicity
[2019-01-17] MEDS: Multivit/Ca/Min/Fe/FA 1 TAB TABLET PO SCH (10:05)
[2019-01-17] MEDS: Furosemide 40 MG TABLET PO SCH ×2 (10:06→17:52)
[2019-01-17] MEDS: Ranolazine 500 MG TAB.ER.12H PO SCH ×2 (10:06→22:33)
[2019-01-17] MEDS: Piperacillin/Tazobactam 3.375 GM in 0.9 % Sodium Chloride Mini Bag 100 ML IVPB SCH ×2 (10:07→17:53)
[2019-01-17] MEDS: Nicotine 21 MG PATCH.TD24 TD SCH (10:07)
[2019-01-17] MEDS: Isosorbide MONOnitrate (24 HR) 60 MG TAB.ER.24H PO SCH ×2 (10:09→22:33)
[2019-01-17] MEDS: Metoprolol XL (24 HR) Succ 25 MG TAB.ER.24H PO SCH (10:09)
[2019-01-17] MEDS: Gabapentin 400 MG CAPSULE PO SCH ×4 (10:11→22:33)
--- NOTE | 2019-01-17 11:15 | Podiatry Progress Note ---
Date of Encounter: 01/17/19 Time of Encounter: 10:25 - Assessment and Plan (1) Osteomyelitis of toe Current Visit: No Status: Acute Assessment: -Post op day #6 #1: Resection of first metatarsal head for biopsy, #2: Sesamoidectomy, #3: Excision of ulceration medial left foot, and #4: Deposition of antibiotic beads by Dr. Caballero on 01/11/2019 -Dressing removed -Incision well approximated both medial aspect and dorsal aspect of foot -Liliana wound irritation noted consistent with inflammatory response, no edema, no drainage, no signs of dehiscence, no signs of infection noted -Surgical biopsy left foot culture from 01/11/2019 preliminary and show Staphyloc occus epidermidis and Gram Positive Rods -Anaerobic cultures from 01/11/2019 are preliminary and show no growth -Surgical biopsy culture left great toe final and shows evidence of Staphylococcus epidermidis and Gram Positive Rods Plan: -Cleansed with 0.9 NS. and pat dry -Covered incision with adaptic, 4x4 dry gauze, and kerlex. -Secured with paper tape. -ID managing antibiotic therapy, culture results preliminary, recommendations are appreciated -Patient to wear surgical shoe when ambulating -Change dressing daily -Recommend Extended Care Facility after discharge for wound care and rehab if patient is agreeable -Follow up with Dr. Caballero within one week after discharge, call office for ap pointment -Will continue to monitor Subjective Interval history: Post op day #6 #1: Resection of first metatarsal head for biopsy, #2: Sesamoidectomy, #3: Excision of ulceration medial left foot, and #4: Deposition of antibiotic beads by Dr. Caballero on 01/11/2019 Patient is alert and oriented x 3, no acute distress noted, well nourished. Patient denies any chest pain, shortness of breath, or calf pain. Patient denies any fever, chills, nausea, vomiting, or diarrhea. Dressing dry and intact without any evidence of strike through noted. Objective - Vital Signs Vital Signs: Vital Signs Temp Pulse Resp BP Pulse Ox 01/17/19 10:37 97.6 F 83 16 99/63 92 01/17/19 07:51 97.8 F 82 16 95/55 95 01/17/19 03:48 97.7 F 80 15 98/63 94 01/16/19 23:31 98.1 F 85 15 99/68 95 01/16/19 20:42 18 91 01/16/19 19:28 97.9 F 81 15 122/84 91 01/16/19 17:30 97.8 F 75 20 114/79 95 Intake and Output 01/16/19 01/17/19 01/17/19 23:59 07:59 15:59 Intake Total 100 / 100 720 / 720 240 / 240 Output Total 500 / 500 600 / 600 0 / 0 Balance -400 / -400 120 / 120 240 / 240 Intake: IV Fluids 100 / 100 600 / 600 Zosyn 3.375 GM In 0.9 % Sodium 100 / 100 100 / 100 Chloride (Mini-Bag +) 100 ML @ 25 mls/hr IVPB Q8HR KATHRIN Rx#: [id number] Vancocin 1,750 MG In 0.9 % 500 / 500 Sodium Chloride 500 ML @ 334. 014 mls/hr IVPB Q12H KATHRIN Rx#: [id number] Oral 0 / 0 120 / 120 240 / 240 Output: Urine 500 / 500 600 / 600 0 / 0 Other: Stool Size Large Moderate Stool Consistency loose formed soft Stool Color Brown Brown # Voids 1 1 # Bowel Movements 1 1 Weight 124.5 kg Patient Weight 01/17/19 23:59 Weight 124.5 kg - Exam Exam: Constitutional: Alert and oriented x 3, no acute distress noted, well nourished Vascular: 2/4 PT/DP pulse, cap refill less than 3 seconds, no pain with calf squeeze, mild edema to left foot improving 1/4 Neurological: Diminished protective sensation, abnormal proprioception dorsiflexion/plantar flexion Dermatological: Surgical incision to left 1st metatarsal medial and dorsal aspect of foot with sutures intact, well approximated. No signs of drainage. Liliana wound irritation noted consistent with inflammatory response. No signs of infection. No streaking noted. Musculoskeletal: 3/5 muscle strength and normal tone noted LLE - Lab Result Diagrams: 01/12/19 04:41 01/17/19 03:20 Labs: Abnormal lab results MCV 102.1 fL (83.0-100.0) H 01/12/19 04:41 MCH 35.1 pg (28.0-33.3) H 01/12/19 04:41 Plt Count 114 K/mcL (140-400) L 01/12/19 04:41 ESR 48 mm/hr (0-10) H 01/12/19 04:41 Potassium 3.3 mEq/L (3.5-5.1) L 01/17/19 03:20 BUN 30 mg/dL (8-23) H 01/17/19 03:20 Glucose 106 mg/dL (70-105) H 01/17/19 03:20 POC Glucose 120 mg/dL (70-99) H 01/11/19 21:37 Calcium 11.0 mg/dL (8.6-10.3) H 01/17/19 03:20 Magnesium 1.4 mg/dL (1.6-2.6) L 01/17/19 03:20 C-Reactive Protein 10 mg/L (Less than 10) H 01/12/19 04:41 Microbiology, Last 48 Hours 01/11/19 08:25 Anaerobic Culture - Final Left Great Toe No anaerobes were recovered. 01/11/19 08:47 Anaerobic Culture - Preliminary Left Foot At this time, no anaerobic growth is present. The culture will be finalized after 5 days of incubation. 01/11/19 08:47 Surgical Biopsy Culture - Preliminary Left Foot Staphylococcus epidermidis Gram Positive Rods Gram Positive Rods#2 01/11/19 08:25 Surgical Biopsy Culture - Final Left Great Toe Staphylococcus epidermidis Gram Positive Rods 01/11/19 08:25 Wound Culture - Final Left Great Toe Consult Discharge Plan - Plan Referrals: Neli Hoover, [employer] [Primary Care Provider] -
--- NOTE | 2019-01-17 13:01 | Internal Med Progress Note ---
Hospitalist Progress Note - Encounter Date of Encounter: 01/17/19 Time of Encounter: 10:15 - Subjective Interval History: No acute events overnight. No fever/chills or nausea/vomiting. - Exam Vitals: Temp Pulse Resp BP Pulse Ox 97.6 F 83 16 99/63 92 01/17/19 10:37 01/17/19 10:37 01/17/19 10:37 01/17/19 10:37 01/17/19 10:37 Exam: General: Alert and oriented 3, not in distress Heart: Regular rate and rhythm, no murmurs, rubs, gallops Lungs: Clear to auscultation bilaterally, no rales, rhonchi, wheezes Abdomen: Soft, nontender Extremity: Left foot: Dressing clean dry and intact - Assessment and Plan (1) Osteomyelitis of toe Current Visit: Yes Status: Acute Assessment and Plan: s/p Resection of first metatarsal head for biopsy, Sesamoidectomy, Excision of ulceration medial left foot, and Deposition of antibiotic beads, POD #6. Cultures preliminary positive for staph epi, gram-positive rods. Currently on IV antibiotics per ID Further management per primary podiatry service/ID (2) Hypokalemia Current Visit: No Status: Chronic Assessment and Plan: appears to be on 20meq BID at home, will increase to 40meq BID replete Mg as below (3) Hypomagnesemia Current Visit: No Status: Acute Assessment and Plan: 1.4 today. We will give 2g IV today will likely need PO replacement, check level tomorrow (4) CAD (coronary artery disease) Current Visit: No Status: Chronic Assessment and Plan: Stable. No chest pain at this time. Continue beta syed, Imdur, Plavix, and statin (5) PAD (peripheral artery disease) Current Visit: No Status: Chronic Assessment and Plan: Continue Plavix, ranexa, statin (6) CKD (chronic kidney disease) stage 3, GFR 30-59 ml/min Current Visit: No Status: Chronic Assessment and Plan: Cr at baseline avoid nephrotoxins (7) Hypertension Current Visit: No Status: Chronic Assessment and Plan: Continue low dose of Toprol XL, may need to hold off if BP drops further (8) COPD (chronic obstructive pulmonary disease) Current Visit: No Status: Chronic Assessment and Plan: Not in acute exacerbation. Continue home inhalers. - Time Spent with Patient Total time spent is greater than 50% in coordination of care (as documented) at patient's floor/unit and/or counseling patient: 25 - 35 minutes Plan of Care Discussed with: patient Internal Medicine: Result - Labs CBC & Chem 7: 01/12/19 04:41 01/17/19 03:20 Labs: BMP 01/17/19 03:20 Sodium 138 Potassium 3.3 L Chloride 104 Carbon Dioxide 28 BUN 30 H Creatinine 1.19 Glucose 106 H Calcium 11.0 H Consult Discharge Plan - Plan Referrals: Neli Hoover, [employer] [Primary Care Provider] - (4) CAD (coronary artery disease) Qualifiers: Coronary Disease-Associated Artery/Lesion type: [place] artery [place] vs. transplanted heart: [place] heart Associated angina: without angina Qualified Code(s): I25.10 - Atherosclerotic heart disease of [place] coronary artery without angina pectoris (7) Hypertension Qualifiers: Hypertension type: essential hypertension Qualified Code(s): I10 - Essential (primary) hypertension (8) COPD (chronic obstructive pulmonary disease) Qualifiers: COPD type: chronic bronchitis Chronic bronchitis type: unspecified Qualified Code(s): J42 - Unspecified chronic bronchitis
[2019-01-17] MEDS: rOPINIRole 0.25 MG TABLET PO SCH (22:33)
[2019-01-18] MEDS: Piperacillin/Tazobactam 3.375 GM in 0.9 % Sodium Chloride Mini Bag 100 ML IVPB SCH ×3 (01:11→16:32)
[2019-01-18 05:42] LABS: BUN/Creatinine Ratio 25 (6-26); Blood Urea Nitrogen 27 mg/dL (8-23); Calcium 10.5 mg/dL (8.6-10.3); Carbon Dioxide 29 mEq/L (23-29); Chloride 105 mEq/L (98-107); Glucose 124 mg/dL (70-105); Magnesium 1.8 mg/dL (1.6-2.6); Osmolality,Calculated 297 (280-300); Potassium 3.2 mEq/L (3.5-5.1); Sodium 140 mEq/L (136-145); eGFR For Non-African Americans > 60 (> 60)
[2019-01-18] MEDS: Budesonide/Formoterol 160/4.5 1 PUFF INH IH SCH ×2 (07:54→20:24)
--- NOTE | 2019-01-18 09:56 | Podiatry Progress Note ---
Date of Encounter: 01/18/19 Time of Encounter: 09:00 - Assessment and Plan (1) Osteomyelitis of toe Current Visit: Yes Status: Acute Assessment: -Post op day #7 #1: Resection of first metatarsal head for biopsy, #2: Sesamoidectomy, #3: Excision of ulceration medial left foot, and #4: Deposition of antibiotic beads by Dr. Caballero on 01/11/2019 -Dressing removed -Incision well approximated both medial aspect and dorsal aspect of foot -Liliana wound irritation noted consistent with inflammatory response less than yesterday, edema /4, no drainage, no signs of dehiscence, no signs of infection noted -Surgical biopsy left foot culture from 01/11/2019 preliminary and show Staphylococcus epidermidis and Gram Positive Rods -Anaerobic cultures from 01/11/2019 are final and show no growth -Surgical biopsy culture left great toe preliminary and shows evidence of Staphylococcus epidermidis and Gram Positive Rods Plan: -Cleansed with 0.9 NS. and pat dry -Covered incision with adaptic, 4x4 dry gauze, and kerlex. -Secured with Medipore. -ID managing antibiotic therapy, culture results preliminary, recommendations are appreciated -Patient to wear surgical shoe when ambulating -Change dressing daily -Recommend Extended Care Facility after discharge for wound care and rehab if patient is agreeable -Follow up with Dr. Caballero within one week after discharge, call office for appointment -Will continue to monitor Subjective Interval history: Post op day #7 #1: Resection of first metatarsal head for biopsy, #2: Sesamoidectomy, #3: Excision of ulceration medial left foot, and #4: Deposition of antibiotic beads by Dr. Caballero on 01/11/2019 Patient is alert and oriented x 3, no acute distress noted, well nourished. Patient denies any chest pain, shortness of breath, or calf pain. Patient denies any fever, chills, nausea, vomiting, or diarrhea. Dressing dry and intact without any evidence of strike through noted. Objective - Vital Signs Vital Signs: Vital Signs Temp Pulse Resp BP Pulse Ox 01/18/19 07:57 97.9 F 89 18 95/67 95 01/18/19 07:56 16 93 01/18/19 05:03 97.8 F 75 18 128/98 93 01/17/19 19:59 16 93 01/17/19 19:58 98.1 F 76 16 108/72 93 01/17/19 15:59 97.9 F 75 16 111/68 92 01/17/19 10:37 97.6 F 83 16 99/63 92 Intake and Output 01/17/19 01/18/19 01/18/19 23:59 07:59 15:59 Intake Total 100 / 100 100 / 100 Output Total 0 / 0 Balance 100 / 100 100 / 100 Intake: IV Fluids 100 / 100 100 / 100 Zosyn 3.375 GM In 0.9 % Sodium 100 / 100 100 / 100 Chloride (Mini-Bag +) 100 ML @ 25 mls/hr IVPB Q8HR KATHRIN Rx#: [id number] Oral 0 / 0 Output: Urine 0 / 0 Other: # Voids 1 - Exam Exam: Constitutional: Alert and oriented x 3, no acute distress noted, well nourished Vascular: 2/4 PT/DP pulse, cap refill less than 3 seconds, no pain with calf squeeze, edema to left foot 1/4 Neurological: Diminished protective sensation, abnormal proprioception dorsiflexion/plantar flexion Dermatological: Surgical incision to left 1st metatarsal medial and dorsal aspect of foot with sutures intact, well approximated. No signs of drainage. Liliana wound irritation noted consistent with inflammatory response appears less today. No signs of infection. No streaking noted. Musculoskeletal: 3/5 muscle strength and normal tone noted LLE - Lab Result Diagrams: 01/12/19 04:41 01/18/19 05:09 Labs: Abnormal lab results MCV 102.1 fL (83.0-100.0) H 01/12/19 04:41 MCH 35.1 pg (28.0-33.3) H 01/12/19 04:41 Plt Count 114 K/mcL (140-400) L 01/12/19 04:41 ESR 48 mm/hr (0-10) H 01/12/19 04:41 Potassium 3.2 mEq/L (3.5-5.1) L 01/18/19 05:09 BUN 27 mg/dL (8-23) H 01/18/19 05:09 Glucose 124 mg/dL (70-105) H 01/18/19 05:09 POC Glucose 120 mg/dL (70-99) H 01/11/19 21:37 Calcium 10.5 mg/dL (8.6-10.3) H 01/18/19 05:09 C-Reactive Protein 10 mg/L (Less than 10) H 01/12/19 04:41 Vancomycin Trough 30 mcg/mL (5-10) H 01/17/19 21:51 Microbiology, Last 48 Hours 01/11/19 08:47 Anaerobic Culture - Final Left Foot 01/11/19 08:25 Surgical Biopsy Culture - Preliminary Left Great Toe Staphylococcus epidermidis Gram Positive Rods 01/11/19 08:47 Surgical Biopsy Culture - Preliminary Left Foot Staphylococcus epidermidis Gram Positive Rods Gram Positive Rods#2 01/11/19 08:25 Anaerobic Culture - Final Left Great Toe No anaerobes were recovered. Consult Discharge Plan - Plan Referrals: Neli Hoover, EMILY [Primary Care Provider] -
[2019-01-18] MEDS: Magnesium Oxide 400 MG TABLET PO SCH (10:22)
[2019-01-18] MEDS: Furosemide 40 MG TABLET PO SCH ×2 (10:22→16:32)
[2019-01-18] MEDS: Metoprolol XL (24 HR) Succ 25 MG TAB.ER.24H PO SCH (10:22)
[2019-01-18] MEDS: Ranolazine 500 MG TAB.ER.12H PO SCH ×2 (10:23→22:20)
[2019-01-18] MEDS: Nicotine 21 MG PATCH.TD24 TD SCH (10:23)
[2019-01-18] MEDS: Isosorbide MONOnitrate (24 HR) 60 MG TAB.ER.24H PO SCH ×2 (10:23→22:20)
[2019-01-18] MEDS: Multivit/Ca/Min/Fe/FA 1 TAB TABLET PO SCH (10:23)
[2019-01-18] MEDS: Gabapentin 400 MG CAPSULE PO SCH ×4 (10:29→22:20)
--- NOTE | 2019-01-18 10:30 | Infectious Disease Progress No ---
Date of Encounter: 01/18/19 Time of Encounter: 09:20 - Assessment and Plan (1) Osteomyelitis of toe Current Visit: Yes Status: Acute 01/11/19 - POD #7 #1: Resection of first metatarsal head for biopsy, #2: Sesamoidectomy, #3: Excision of ulceration medial left foot, and #4: Deposition of antibiotic beads by Dr. Caballero on 01/11/2019 01/11/19 L Great Toe culture: MRSE, GPR (propionibacterium propionicum); negative anaerobe 01/11/19 L foot ulcer culture: MRSE, GPRx2 (sent to [facility] for ID and Sens on 01/16/19); anaerobic NGTD No pathology report available PICC in place, L arm Cr clearance 121 (adjusted range 62-86) Patient is afebrile, no increase in pain Uncertain if CoNS infectious vs colonizer Concern for nosocomial infection given positive cultures at 2 different intra-op sites Recommendations: -Continue zosyn (day 8), vancomycin (day 3) pending cultures and clinical course; goal trough 15 -Monitor kidney function (2) CAD (coronary artery disease) Current Visit: No Status: Chronic 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 Stable with recent CP treated with nitro (2 doses) on 01/15/19. Plan: -Management per primary team Qualifiers: Coronary Disease-Associated Artery/Lesion type: [place] artery [place] vs. transplanted heart: [place] heart Associated angina: without angina Qualified Code(s): I25.10 - Atherosclerotic heart disease of [place] coronary artery without angina pectoris (3) PAD (peripheral artery disease) Current Visit: No Status: Chronic Hx of PAD with related extremity neuropathy. No acute changes. Plan: -Management per primary team (4) COPD (chronic obstructive pulmonary disease) Current Visit: No Status: Chronic Patient not in acute exacerbation. Plan: -Management per primary team Qualifiers: COPD type: chronic bronchitis Chronic bronchitis type: unspecified Qualified Code(s): J42 - Unspecified chronic bronchitis (5) Morbid obesity with BMI of 40.0-44.9, adult Current Visit: No Status: Acute BMI 44.3 Plan: -Management per primary team - Subjective Interval history: The patient was seen and examined this morning resting comfortably in bed. No acute events over night. He admits feeling better with increased energy and is hoping for placement in ECF soon. The patient denies any increased pain in the L foot, chest pain, fever, chills, nausea, vomiting, cough, constipation. Infect Dis PN-Objective Data - Labs CBC & Chem 7: 01/12/19 04:41 01/19/19 04:00 Labs: Laboratory Results - last 24 hr 01/17/19 01/18/19 21:51 05:09 Sodium 140 Potassium 3.2 L Chloride 105 Carbon Dioxide 29 BUN 27 H Creatinine 1.10 Est GFR ( Amer) > 60 Est GFR (Non-Af Amer) > 60 BUN/Creatinine Ratio 25 Glucose 124 H Calculated Osmolality 297 Calcium 10.5 H Magnesium 1.8 Vancomycin Trough 30 H Cultures: Cultures 01/11/19 08:47 Anaerobic Culture - Final Left Foot 01/11/19 08:25 Surgical Biopsy Culture - Preliminary Left Great Toe Staphylococcus epidermidis Gram Positive Rods 01/11/19 08:47 Surgical Biopsy Culture - Preliminary Left Foot Staphylococcus epidermidis Gram Positive Rods Gram Positive Rods#2 01/11/19 08:25 Anaerobic Culture - Final Left Great Toe No anaerobes were recovered. 01/11/19 08:25 Wound Culture - Final Left Great Toe Exam - Constitutional Vitals: Temp Pulse Resp BP Pulse Ox 97.9 F 89 18 95/67 95 01/18/19 07:57 01/18/19 07:57 01/18/19 07:57 01/18/19 07:57 01/18/19 07:57 Exam: Gen.: Vitals noted. Patient in no acute distress Head: Normocephalic, atraumatic ENT: mucosa pink, edentulous, no lesions Neck: Supple. No adenopathy. Cardiac: RRR, no murmur, +S1/S2 distant sounds due to body habitus Pulmonary: diffuse expiratory wheeze in upper [place], no rales, rhonchi equal chest expansion Abdomen: BSx4, obese, soft, nontender, no guarding or masses MSK: no joint swelling noted Skin: no other rashes, lesions Extremities: L foot with dressing in place, clean, dry, intact, able to curl toes, slight pedal edema of R foot but no ankle edema abigail, nontender calf, no cyanosis or clubbing Neuro: A&Ox3; LLE with only minimal proprioception at big toe, no proprioception at other digits and without fine touch sensation from ankle and below of BLE, moves all extremities Psych: Appropriate mood Consult Discharge Plan - Plan Referrals: Neli Hoover, [employer] [Primary Care Provider] - Prescriptions: RX: Magnesium Oxide [Mag-Ox] 400 mg PO DAILY #30 tablet RX: Potassium Chloride 40 meq PO TID 30 Days #180 tab.er.prt - Attending Attestation I examined this patient and my medical decision-making was reviewed with the Resident Physician. I agree with the documented findings, disposition and treatment plan as described except to the extent set forth below. Patient seen and examined. Agree with above subjective evaluation. Physical exam: HEENT PERRL EOMI Lungs clear to auscultation bilaterally no wheezing Cardiovascular regular rate and rhythm Abdomen morbidly obese soft no guarding Extremities: Bilateral hand pain from poor vasculature. L foot with dressing in place, clean, dry, intact, able to curl toes, no BLE edema, nontender calf, no cyanosis or clubbing A/P: Osteomyelitis of the toe status post resection of first metatarsal head and biopsy, sesamoidectomy, excision of ulceration medial left foot and position of antibiotics bead 01/11/2019 Intra-Op cultures grew methicillin-resistant staph epi and Propionibacterium propionicum Recommendations: at this point continue vancomycin and zosyn on d/c consider vancomycin and cefotetan duration of treatment 6 weeks goal vanc trough 15 monitor labs and for drug toxicity
--- NOTE | 2019-01-18 13:42 | Internal Med Progress Note ---
Hospitalist Progress Note - Encounter Date of Encounter: 01/18/19 Time of Encounter: 11:00 - Subjective Interval History: No acute events overnight. No chest pain, SOB, cough. - Exam Vitals: Temp Pulse Resp BP Pulse Ox 97.7 F 76 18 109/71 96 01/18/19 10:51 01/18/19 10:51 01/18/19 10:51 01/18/19 10:51 01/18/19 10:51 Exam: General: Alert and oriented 3, not in distress Heart: Regular rate and rhythm, no murmurs, rubs, gallops Lungs: Clear to auscultation bilaterally, no rales, rhonchi, wheezes Abdomen: Soft, nontender Extremity: Left foot: Dressing clean dry and intact - Assessment and Plan (1) Osteomyelitis of toe Current Visit: Yes Status: Acute Assessment and Plan: s/p Resection of first metatarsal head for biopsy, Sesamoidectomy, Excision of ulceration medial left foot, and Deposition of antibiotic beads, POD #7. Cultures preliminary positive for staph epi, gram-positive rods. Currently on IV antibiotics per ID Further management per primary podiatry service/ID (2) Hypokalemia Current Visit: Yes Status: Chronic Assessment and Plan: appears to be on 20meq BID at home along with high dose diuretics, persistently low around 3.2-3.3. change to 40meq TID (3) Hypomagnesemia Current Visit: No Status: Acute Assessment and Plan: 1.4 -> 1.8 today after 2g IV yesterday will start PO replacement today (4) CAD (coronary artery disease) Current Visit: No Status: Chronic Assessment and Plan: Stable. No chest pain at this time. Continue beta syed, Imdur, Plavix, and statin (5) PAD (peripheral artery disease) Current Visit: No Status: Chronic Assessment and Plan: Continue Plavix, ranexa, statin (6) CKD (chronic kidney disease) stage 3, GFR 30-59 ml/min Current Visit: No Status: Chronic Assessment and Plan: Cr at baseline avoid nephrotoxins (7) Hypertension Current Visit: No Status: Chronic Assessment and Plan: Continue low dose of Toprol XL, may need to hold off if BP drops further (8) COPD (chronic obstructive pulmonary disease) Current Visit: No Status: Chronic Assessment and Plan: Not in acute exacerbation. Continue home inhalers. - Time Spent with Patient Total time spent is greater than 50% in coordination of care (as documented) at patient's floor/unit and/or counseling patient: 25 - 35 minutes Plan of Care Discussed with: patient Internal Medicine: Result - Labs CBC & Chem 7: 01/12/19 04:41 01/18/19 05:09 Labs: BMP 01/18/19 05:09 Sodium 140 Potassium 3.2 L Chloride 105 Carbon Dioxide 29 BUN 27 H Creatinine 1.10 Glucose 124 H Calcium 10.5 H Consult Discharge Plan - Plan Referrals: Neli Hoover, [employer] [Primary Care Provider] - (4) CAD (coronary artery disease) Qualifiers: Coronary Disease-Associated Artery/Lesion type: [place] artery [place] vs. transplanted heart: [place] heart Associated angina: without angina Qualified Code(s): I25.10 - Atherosclerotic heart disease of [place] coronary artery without angina pectoris (7) Hypertension Qualifiers: Hypertension type: essential hypertension Qualified Code(s): I10 - Essential (primary) hypertension (8) COPD (chronic obstructive pulmonary disease) Qualifiers: COPD type: chronic bronchitis Chronic bronchitis type: unspecified Qualified Code(s): J42 - Unspecified chronic bronchitis
[2019-01-18] MEDS: rOPINIRole 0.25 MG TABLET PO SCH (22:20)
[2019-01-19] MEDS: Piperacillin/Tazobactam 3.375 GM in 0.9 % Sodium Chloride Mini Bag 100 ML IVPB SCH ×4 (00:59→23:14)
[2019-01-19 06:10] LABS: BUN/Creatinine Ratio 24 (6-26); Blood Urea Nitrogen 27 mg/dL (8-23); Carbon Dioxide 30 mEq/L (23-29); Chloride 104 mEq/L (98-107); Glucose 93 mg/dL (70-105); Magnesium 1.9 mg/dL (1.6-2.6); Osmolality,Calculated 293 (280-300); Potassium 3.5 mEq/L (3.5-5.1); Sodium 139 mEq/L (136-145); eGFR For Non-African Americans > 60 (> 60)
[2019-01-19 07:02] LABS: Calcium 10.6 mg/dL (8.6-10.3)
[2019-01-19] MEDS: Nicotine 21 MG PATCH.TD24 TD SCH (08:12)
[2019-01-19] MEDS: Multivit/Ca/Min/Fe/FA 1 TAB TABLET PO SCH (08:13)
[2019-01-19] MEDS: Metoprolol XL (24 HR) Succ 25 MG TAB.ER.24H PO SCH (08:13)
[2019-01-19] MEDS: Isosorbide MONOnitrate (24 HR) 60 MG TAB.ER.24H PO SCH ×2 (08:13→21:11)
[2019-01-19] MEDS: Magnesium Oxide 400 MG TABLET PO SCH (08:13)
[2019-01-19] MEDS: Furosemide 40 MG TABLET PO SCH ×2 (08:13→16:22)
[2019-01-19] MEDS: Ranolazine 500 MG TAB.ER.12H PO SCH ×2 (08:13→21:12)
[2019-01-19] MEDS: Gabapentin 400 MG CAPSULE PO SCH ×4 (08:14→23:14)
[2019-01-19] MEDS: Budesonide/Formoterol 160/4.5 1 PUFF INH IH SCH ×2 (09:59→20:28)
--- NOTE | 2019-01-19 10:46 | Internal Med Progress Note ---
Hospitalist Progress Note - Encounter Date of Encounter: 01/19/19 Time of Encounter: 08:15 - Subjective Interval History: No acute events overnight. No chest pain, SOB, cough. Wants to know when he is going to be discharged - Exam Vitals: Temp Pulse Resp BP Pulse Ox 98.8 F 72 16 107/71 93 01/19/19 07:51 01/19/19 07:51 01/19/19 10:02 01/19/19 07:51 01/19/19 10:02 Exam: General: Alert and oriented 3, not in distress Heart: Regular rate and rhythm, no murmurs, rubs, gallops Lungs: Clear to auscultation bilaterally, no rales, rhonchi, wheezes Abdomen: Soft, nontender Extremity: Left foot: Dressing clean dry and intact - Assessment and Plan (1) Osteomyelitis of toe Current Visit: Yes Status: Acute Assessment and Plan: s/p Resection of first metatarsal head for biopsy, Sesamoidectomy, Excision of ulceration medial left foot, and Deposition of antibiotic beads, POD #8. Cultures preliminary positive for staph epi, gram-positive rods. Currently on IV antibiotics per ID Further management per primary podiatry service/ID (2) Hypokalemia Current Visit: Yes Status: Chronic Assessment and Plan: appears to be on 20meq BID at home along with high dose diuretics, persistently low around 3.2-3.3. today at 3.5 with increased dose of 40meq TID will sign off, a script for change in potassium dosing written. Follow up with PCP/nephrology as outpatient (3) Hypomagnesemia Current Visit: No Status: Acute Assessment and Plan: normal x 2 days, on PO supplement will write a script for Mag-Ox (4) CAD (coronary artery disease) Current Visit: No Status: Chronic Assessment and Plan: Stable. No chest pain at this time. Continue beta syed, Imdur, Plavix, and statin (5) PAD (peripheral artery disease) Current Visit: No Status: Chronic Assessment and Plan: Continue Plavix, ranexa, statin (6) CKD (chronic kidney disease) stage 3, GFR 30-59 ml/min Current Visit: No Status: Chronic Assessment and Plan: Cr at baseline avoid nephrotoxins Follow with nephrology as outpatient (7) Hypertension Current Visit: No Status: Chronic Assessment and Plan: Continue low dose of Toprol XL, may need to hold off if BP drops further (8) COPD (chronic obstructive pulmonary disease) Current Visit: No Status: Chronic Assessment and Plan: Not in acute exacerbation. Continue home inhalers. - Time Spent with Patient Total time spent is greater than 50% in coordination of care (as documented) at patient's floor/unit and/or counseling patient: 25 - 35 minutes Plan of Care Discussed with: patient (discussed with the primary team as well) Internal Medicine: Result - Labs CBC & Chem 7: 01/12/19 04:41 01/19/19 04:00 Labs: BMP 01/19/19 04:00 Sodium 139 Potassium 3.5 Chloride 104 Carbon Dioxide 30 H BUN 27 H Creatinine 1.11 Glucose 93 Calcium 10.6 H Consult Discharge Plan - Plan Referrals: Neli Hoover, EMILY [Primary Care Provider] - (4) CAD (coronary artery disease) Qualifiers: Coronary Disease-Associated Artery/Lesion type: [place] artery [place] vs. [place] heart: [place] heart Associated angina: without angina Qualified Code(s): I25.10 - Atherosclerotic heart disease of [place] coronary artery without angina pectoris (7) Hypertension Qualifiers: Hypertension type: essential hypertension Qualified Code(s): I10 - Essential (primary) hypertension (8) COPD (chronic obstructive pulmonary disease) Qualifiers: COPD type: chronic bronchitis Chronic bronchitis type: unspecified Qualified Code(s): J42 - Unspecified chronic bronchitis
--- NOTE | 2019-01-19 10:58 | Infectious Disease Progress No ---
Date of Encounter: 01/19/19 Time of Encounter: 10:15 - Assessment and Plan (1) Osteomyelitis of toe Current Visit: Yes Status: Acute Location: Left foot first metatarsal head Causative organism: Staph epi, Propionibacterium propionicum, dermabacter homini s, and Corynebacterium amycolatum. Status post resection of the first metatarsal head for biopsy, sesamoid ectomy, excision of ulceration medial left foot, and deposition of antibiotic beads 01/11/[address] Caballero. Intraoperative cultures as above, including bone. No specimen sent for pathology. Currently on Zosyn and vancomycin. Recommendations: Await susceptibilties on intra-op cultures. Wound care and dressing changes per the Podiatry team. Continue Vancomycin IV. Pharmacy to dose. Goal trough ~15. Continue Zosyn 3.375 grams IV Q8H. Duration of treatment depends on the clinical picture, but likely 6 weeks. human resources services specialist to assist with discharge planning. Monitor renal function and for drug toxicity and dose-adjust antibiotics. (2) CKD (chronic kidney disease) Current Visit: No Status: Chronic Monitor renal function closely and dose adjust antibiotics. Avoid nephrotoxins as able. Qualifiers: Qualified Code(s): N18.9 - Chronic kidney disease, unspecified (3) CAD (coronary artery disease) Current Visit: No Status: Chronic 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 Stable with recent CP treated with nitro (2 doses) on 01/15/19. Management per primary team Qualifiers: Coronary Disease-Associated Artery/Lesion type: [place] artery [place] vs. transplanted heart: [place] heart Associated angina: without angina Qualified Code(s): I25.10 - Atherosclerotic heart disease of [place] coronary artery without angina pectoris (4) Morbid obesity with BMI of 40.0-44.9, adult Current Visit: No Status: Acute BMI 44.3 Management per primary team (5) PAD (peripheral artery disease) Current Visit: No Status: Chronic Hx of PAD with related extremity neuropathy. No acute changes. Management per primary team - Subjective Interval history: Patient seen and examined. No acute events noted overnight. Patient reports some mild pain to the bilateral feet overnight, but none at this time. Denies fevers, chills, rigors. Denies chest pain, shortness of breath, cough. Denies nausea, vomiting, diarrhea, or constipation. Reports his last bowel movement was this morning. Denies abdominal pain or urinary complaints. States his appetite is good but he does not like with they are bringing him to eat. Denies any oral thrush or new skin lesions. Infect Dis PN-Objective Data - Labs CBC & Chem 7: 01/12/19 04:41 01/19/19 04:00 Labs: Laboratory Results - last 24 hr 01/18/19 01/19/19 01/19/19 14:40 04:00 04:00 Sodium 139 Potassium 3.5 Chloride 104 Carbon Dioxide 30 H BUN 27 H Creatinine 1.11 Est GFR ( Amer) > 60 Est GFR (Non-Af Amer) > 60 BUN/Creatinine Ratio 24 Glucose 93 Calculated Osmolality 293 Calcium 10.6 H Magnesium 1.9 Vancomycin Trough 19 H Random Vancomycin 13 Cultures: Cultures 01/11/19 08:47 Surgical Biopsy Culture - Preliminary Left Foot Staphylococcus epidermidis Gram Positive Rods Gram Positive Rods#2 01/11/19 08:47 Anaerobic Culture - Final Left Foot 01/11/19 08:25 Surgical Biopsy Culture - Preliminary Left Great Toe Staphylococcus epidermidis Gram Positive Rods 01/11/19 08:25 Anaerobic Culture - Final Left Great Toe No anaerobes were recovered. 01/11/19 08:25 Wound Culture - Final Left Great Toe Exam - Constitutional Vitals: Temp Pulse Resp BP Pulse Ox 97.8 F 67 16 120/70 95 01/19/19 10:48 01/19/19 10:48 01/19/19 10:48 01/19/19 10:48 01/19/19 10:48 General appearance: cooperative, morbidly obese, no acute distress - Head Head exam: Present: atraumatic, normal inspection, normocephalic - Eye Eye exam: Present: EOMI, normal appearance, PERRL Pupils: Present: normal accommodation - ENT ENT exam: Present: mucous membranes moist - Neck Neck exam: Present: normal inspection - Respiratory Respiratory exam: Present: CTAB. Absent: rales, respiratory distress, rhonchi, wheezes - Cardiovascular Cardiovascular exam: Present: RRR, +S1, +S2 - GI/Abdominal GI/Abdominal exam: Present: distended (Obese), normal bowel sounds, soft. Absent: tenderness - Extremities Exam Extremities exam: Absent: normal inspection (Right foot dressing clean, dry, and intact.) - Neurological Exam Neurological exam: Present: alert, oriented X3, no focal deficits - Psychiatric Psychiatric exam: Present: normal affect, normal mood - Skin Skin exam: Present: dry, intact, normal color, warm Consult Discharge Plan - Plan Referrals: Neli Hoover CNP [Primary Care Provider] - Prescriptions: RX: Magnesium Oxide [Mag-Ox] 400 mg PO DAILY #30 tablet RX: Potassium Chloride 40 meq PO TID 30 Days #180 tab.er.prt - Attending Attestation I have personally performed a face to face evaluation on this patient. I have reviewed and agree with the care plan. History and Exam by me shows: A/P: Osteomyelitis of the toe status post resection of first metatarsal head and biopsy, sesamoidectomy, excision of ulceration medial left foot and position of antibiotics bead 01/11/2019 Intra-Op cultures grew methicillin-resistant staph epi and Propionibacterium propionicum Recommendations: at this point continue vancomycin and zosyn on d/c consider vancomycin and cefotetan duration of treatment 6 weeks goal vanc trough 15 monitor labs and for drug toxicity
--- NOTE | 2019-01-19 12:07 | Podiatry Progress Note ---
Date of Encounter: 01/19/19 Time of Encounter: 11:50 - Assessment and Plan (1) Osteomyelitis of toe Current Visit: Yes Status: Acute Assessment: -Post op day #8 #1: Resection of first metatarsal head for biopsy, #2: Sesamoidectomy, #3: Excision of ulceration medial left foot, and #4: Deposition of antibiotic beads by Dr. Caballero on 01/11/2019 -Dressing removed -Incision well approximated both medial aspect and dorsal aspect of foot -No erythema, edema 1/4, no drainage, no signs of dehiscence, no signs of infection noted -Surgical biopsy left foot culture from 01/11/2019 preliminary and show Staphylococcus epidermidis and Gram Positive Rods -Anaerobic cultures from 01/11/2019 are final and show no growth -Surgical biopsy culture left great toe preliminary and shows evidence of Staphylococcus epidermidis and Gram Positive Rods Plan: -Cleansed with 0.9 NS. and pat dry -Covered incision with adaptic, 4x4 dry gauze, and kerlex. -Secured with Medipore. -ID managing antibiotic therapy, culture results preliminary, recommendations are appreciated -Patient to wear surgical shoe when ambulating -Change dressing daily, wound care orders written -Follow up with Dr. Caballero within one week after discharge, call office for appointment -Okay to discharge to ECF once cleared by ID -[facility] insurance approval Subjective Interval history: Post op day #8 #1: Resection of first metatarsal head for biopsy, #2: Sesamoidectomy, #3: Excision of ulceration medial left foot, and #4: Deposition of antibiotic beads by Dr. Caballero on 01/11/2019 Patient is alert and oriented x 3, no acute distress noted, well nourished. Patient denies any chest pain, shortness of breath, or calf pain. Patient denies any fever, chills, nausea, vomiting, or diarrhea. Dressing dry and intac t without any evidence of strike through noted. Patient anxious to go to ECF. Objective - Vital Signs Vital Signs: Vital Signs Temp Pulse Resp BP Pulse Ox 01/19/19 10:48 97.8 F 67 16 120/70 95 01/19/19 10:02 16 93 01/19/19 07:51 98.8 F 72 16 107/71 93 01/19/19 04:00 97.6 F 68 16 100/63 96 01/18/19 20:47 97.9 F 72 16 109/67 94 01/18/19 20:24 16 96 Intake and Output 01/18/19 01/19/19 01/19/19 23:59 07:59 15:59 Intake Total 100 / 100 340 / 340 720 / 720 Output Total 500 / 500 400 / 400 Balance -400 / -400 -60 / -60 720 / 720 Intake: IV Fluids 100 / 100 100 / 100 Zosyn 3.375 GM In 0.9 % Sodium 100 / 100 100 / 100 Chloride (Mini-Bag +) 100 ML @ 25 mls/hr IVPB Q8HR [facility] Rx#: [id number] Oral 240 / 240 720 / 720 Output: Urine 500 / 500 400 / 400 Other: Meal Breakfast Percent of Meal Consumed 0% Stool Size Copious Moderate Stool Consistency loose loose soft Stool Characteristics Normal for Patient Stool Color Brown Brown # Voids 1 0 # Urine Diapers 1 # Bowel Movements 1 1 Weight 122.6 kg Patient Weight 01/19/19 23:59 Weight 122.6 kg - Exam Exam: Constitutional: Alert and oriented x 3, no acute distress noted, well nourished Vascular: 2/4 PT/DP pulse, cap refill less than 3 seconds, no pain with calf squeeze, edema to left foot 1/4 Neurological: Diminished protective sensation, abnormal proprioception dorsiflexion/plantar flexion Dermatological: Surgical incision to left 1st metatarsal medial and dorsal aspect of foot with sutures intact, well approximated. No signs of drainage. No erythema. No signs of infection. No streaking noted. Musculoskeletal: 3/5 muscle strength and normal tone noted LLE - Lab Result Diagrams: 01/12/19 04:41 01/19/19 04:00 Labs: Abnormal lab results MCV 102.1 fL (83.0-100.0) H 01/12/19 04:41 MCH 35.1 pg (28.0-33.3) H 01/12/19 04:41 Plt Count 114 K/mcL (140-400) L 01/12/19 04:41 ESR 48 mm/hr (0-10) H 01/12/19 04:41 Carbon Dioxide 30 mEq/L (23-29) H 01/19/19 04:00 BUN 27 mg/dL (8-23) H 01/19/19 04:00 POC Glucose 120 mg/dL (70-99) H 01/11/19 21:37 Calcium 10.6 mg/dL (8.6-10.3) H 01/19/19 04:00 C-Reactive Protein 10 mg/L (Less than 10) H 01/12/19 04:41 Vancomycin Trough 19 mcg/mL (5-10) H 01/18/19 14:40 Microbiology, Last 48 Hours 01/11/19 08:47 Surgical Biopsy Culture - Preliminary Left Foot Staphylococcus epidermidis Gram Positive Rods Gram Positive Rods#2 01/11/19 08:47 Anaerobic Culture - Final Left Foot 01/11/19 08:25 Surgical Biopsy Culture - Preliminary Left Great Toe Staphylococcus epidermidis Gram Positive Rods Consult Discharge Plan - Plan Referrals: Neli Hoover CNP [Primary Care Provider] - Prescriptions: Magnesium Oxide [Mag-Ox] 400 mg PO DAILY #30 tablet Potassium Chloride 40 meq PO TID 30 Days #180 tab.er.prt
[2019-01-19] MEDS: rOPINIRole 0.25 MG TABLET PO SCH (21:10)
[2019-01-19] MEDS ORDERED: 0.9 % Sodium Chloride Mini Bag 100 ML ONE (23:17)
[2019-01-20] MEDS: Budesonide/Formoterol 160/4.5 1 PUFF INH IH SCH ×2 (07:52→21:26)
[2019-01-20] MEDS: Furosemide 40 MG TABLET PO SCH ×2 (07:57→16:18)
[2019-01-20] MEDS: Metoprolol XL (24 HR) Succ 25 MG TAB.ER.24H PO SCH (07:57)
[2019-01-20] MEDS: Isosorbide MONOnitrate (24 HR) 60 MG TAB.ER.24H PO SCH ×2 (08:01→22:19)
[2019-01-20] MEDS: Piperacillin/Tazobactam 3.375 GM in 0.9 % Sodium Chloride Mini Bag 100 ML IVPB SCH ×2 (08:09→16:18)
[2019-01-20] MEDS: Magnesium Oxide 400 MG TABLET PO SCH (08:10)
[2019-01-20] MEDS: Gabapentin 400 MG CAPSULE PO SCH ×4 (08:10→22:20)
[2019-01-20] MEDS: Ranolazine 500 MG TAB.ER.12H PO SCH ×2 (08:10→22:20)
[2019-01-20] MEDS: Nicotine 21 MG PATCH.TD24 TD SCH (08:11)
[2019-01-20] MEDS: Multivit/Ca/Min/Fe/FA 1 TAB TABLET PO SCH (08:11)
[2019-01-20 10:59] LABS: C-Reactive Protein 8 mg/L (Less than 10)
[2019-01-20] MEDS: rOPINIRole 0.25 MG TABLET PO SCH (22:20)
[2019-01-21] MEDS: Piperacillin/Tazobactam 3.375 GM in 0.9 % Sodium Chloride Mini Bag 100 ML IVPB SCH ×3 (01:28→16:16)
[2019-01-21 06:03] LABS: BUN/Creatinine Ratio 15 (6-26); Blood Urea Nitrogen 19 mg/dL (8-23); eGFR For Non-African Americans 59 (> 60)
[2019-01-21] MEDS: Metoprolol XL (24 HR) Succ 25 MG TAB.ER.24H PO SCH (08:02)
[2019-01-21] MEDS: Furosemide 40 MG TABLET PO SCH ×2 (08:02→16:16)
[2019-01-21] MEDS: Magnesium Oxide 400 MG TABLET PO SCH (08:02)
[2019-01-21] MEDS: Multivit/Ca/Min/Fe/FA 1 TAB TABLET PO SCH (08:02)
[2019-01-21] MEDS: Ranolazine 500 MG TAB.ER.12H PO SCH ×2 (08:02→22:05)
[2019-01-21] MEDS: Gabapentin 400 MG CAPSULE PO SCH ×4 (08:02→22:08)
[2019-01-21] MEDS: Nicotine 21 MG PATCH.TD24 TD SCH (08:03)
[2019-01-21] MEDS: Isosorbide MONOnitrate (24 HR) 60 MG TAB.ER.24H PO SCH ×2 (08:03→22:05)
[2019-01-21] MEDS: Budesonide/Formoterol 160/4.5 1 PUFF INH IH SCH ×2 (10:22→20:49)
[2019-01-21 15:03] LABS: Basophils % 0.6 %; Eosinophils # 0.5 K/mcL (0.0-0.6); Eosinophils % 7.9 %; Hematocrit 39.8 % (37.5-50.1); Hemoglobin 13.1 g/dL (12.9-16.9); Immature Granulocytes % 0.3 % (0-4); Lymphocytes # 1.6 K/mcL (0.6-4.6); Lymphocytes % 23.8 %; Mean Corpuscular HGB Conc 32.9 g/dL (31.6-35.5); Mean Corpuscular Hemoglobin 34.7 pg (28.0-33.3); Mean Corpuscular Volume 105.6 fL (83.0-100.0); Mean Platelet Volume 9.2 fL (9.4-12.4); Monocytes # 0.5 K/mcL (0.0-1.3); Monocytes % 7.3 %; Platelet Count 116 K/mcL (140-400); Red Blood Count 3.77 M/mcL (4.19-5.50); Red Cell Distribution Width 15.1 % (11.5-14.5); Segmented Neutrophils % 60.1 %
[2019-01-21] MEDS: rOPINIRole 0.25 MG TABLET PO SCH (22:05)
[2019-01-22] MEDS: Budesonide/Formoterol 160/4.5 1 PUFF INH IH SCH ×2 (07:58→20:44)
[2019-01-22] MEDS: Nicotine 21 MG PATCH.TD24 TD SCH (08:50)
[2019-01-22] MEDS: Multivit/Ca/Min/Fe/FA 1 TAB TABLET PO SCH (08:51)
[2019-01-22] MEDS: Metoprolol XL (24 HR) Succ 25 MG TAB.ER.24H PO SCH (08:51)
[2019-01-22] MEDS: Furosemide 40 MG TABLET PO SCH ×2 (08:51→19:23)
[2019-01-22] MEDS: Magnesium Oxide 400 MG TABLET PO SCH (08:51)
[2019-01-22] MEDS: Isosorbide MONOnitrate (24 HR) 60 MG TAB.ER.24H PO SCH ×2 (08:51→21:18)
[2019-01-22] MEDS: Piperacillin/Tazobactam 3.375 GM in 0.9 % Sodium Chloride Mini Bag 100 ML IVPB SCH ×4 (08:51→23:48)
[2019-01-22] MEDS: Ranolazine 500 MG TAB.ER.12H PO SCH ×2 (08:51→21:18)
[2019-01-22] MEDS: Gabapentin 400 MG CAPSULE PO SCH ×4 (08:54→23:47)
--- NOTE | 2019-01-22 09:21 | Podiatry Progress Note ---
Date of Encounter: 01/22/19 Time of Encounter: 09:05 - Assessment and Plan (1) Osteomyelitis of toe Current Visit: Yes Status: Acute Assessment: -Post op day #11 #1: Resection of first metatarsal head for biopsy, #2: Sesamoidectomy, #3: Excision of ulceration medial left foot, and #4: Deposition of antibiotic beads by Dr. Caballero on 01/11/2019 -Dressing removed -Incision well approximated both medial aspect and dorsal aspect of foot -No erythema, edema improving, no drainage, no signs of dehiscence, no signs of infection noted -Surgical biopsy left foot culture from 01/11/2019 final and show Staphylococcus epidermidis and Gram Positive Rods -Anaerobic cultures from 01/11/2019 are final and show no growth -Surgical biopsy culture left great toe preliminary and shows evidence of Staphylococcus epidermidis and Gram Positive Rods Plan: -Cleansed with 0.9 NS. and pat dry -Covered incision with adaptic, 4x4 dry gauze, and kerlex. -Secured with Medipore. -ID managing antibiotic therapy, culture results preliminary, recommendations are appreciated -Patient to wear surgical shoe when ambulating -Change dressing daily, wound care orders written -Follow up with Dr. Caballero within one week after discharge, call office for appointment -Okay to discharge to [facility] once cleared by ID -Patient has been accepted by [facility] approved Subjective Interval history: Post op day #11 #1: Resection of first metatarsal head for biopsy, #2: Sesamoidectomy, #3: Excision of ulceration medial left foot, and #4: Deposition of antibiotic beads by Dr. Caballero on 01/11/2019 Patient is alert and oriented x 3, no acute distress noted, well nourished. Patient denies any chest pain, shortness of breath, or calf pain. Patient denies any fever, chills, nausea, vomiting, or diarrhea. Dressing dry and intact without any evidence of strike through noted. Patient reports he refused PT today due to hip and back pain from being in the hospital bed for so long. Asked patient if he had turned in bed because he is always in the right lateral recumbent position and he reported no that he was unable and needed a trapeze bar to help move himself. Patient is anxious to go to the [facility]. At this time he has been accepted to [facility] approved authorization. Objective - Vital Signs Vital Signs: Vital Signs Temp Pulse Resp BP Pulse Ox 01/22/19 08:36 97.8 F 77 16 118/69 94 01/22/19 08:00 15 97 01/21/19 21:19 97.6 F 81 15 121/74 96 01/21/19 20:54 18 95 01/21/19 15:54 98.4 F 77 20 144/87 97 01/21/19 12:01 16 96 01/21/19 11:32 98.2 F 75 18 98/61 94 Intake and Output 01/21/19 01/22/19 01/22/19 23:59 07:59 15:59 Intake Total 350 / 350 100 / 100 120 / 120 Balance 350 / 350 100 / 100 120 / 120 Intake: IV Fluids 350 / 350 100 / 100 Zosyn 3.375 GM In 0.9 % Sodium 100 / 100 100 / 100 Chloride (Mini-Bag +) 100 ML @ 25 mls/hr IVPB Q8HR [facility] Rx#: [id number] Vancocin 1,500 MG In 0.9 % 250 / 250 Sodium Chloride 250 ML @ 166.67 mls/hr IVPB Q24H [facility] Rx#: [id number] Oral 0 / 0 120 / 120 Other: Stool Size Small Stool Consistency loose Stool Color Brown # Voids 2 0 # Bowel Movements 2 - Exam Exam: Constitutional: Alert and oriented x 3, no acute distress noted, well nourished Vascular: 2/4 PT/DP pulse, cap refill less than 3 seconds, no pain with calf squeeze, edema to left foot improving Neurological: Diminished protective sensation, abnormal proprioception dorsiflexion/plantar flexion Dermatological: Surgical incision to left 1st metatarsal medial and dorsal aspect of foot with sutures intact, well approximated. No signs of drainage. No erythema. No signs of infection. No streaking noted. Musculoskeletal: 3/5 muscle strength and diminished tone noted LLE - Lab Result Diagrams: 01/21/19 14:48 01/21/19 05:07 Labs: Abnormal lab results RBC 3.77 M/mcL (4.19-5.50) L 01/21/19 14:48 MCV 105.6 fL (83.0-100.0) H 01/21/19 14:48 MCH 34.7 pg (28.0-33.3) H 01/21/19 14:48 RDW 15.1 % (11.5-14.5) H 01/21/19 14:48 Plt Count 116 K/mcL (140-400) L 01/21/19 14:48 MPV 9.2 fL (9.4-12.4) L 01/21/19 14:48 ESR 56 mm/hr (0-10) H 01/21/19 14:48 Carbon Dioxide 30 mEq/L (23-29) H 01/19/19 04:00 Est GFR (Non-Af Amer) 59 (> 60) L 01/21/19 05:07 POC Glucose 120 mg/dL (70-99) H 01/11/19 21:37 Calcium 10.6 mg/dL (8.6-10.3) H 01/19/19 04:00 Vancomycin Trough 13 mcg/mL (5-10) H 01/21/19 14:48 Consult Discharge Plan - Plan Referrals: Neli Hoover, DOUGHNUT MACHINE OPERATOR HELPER [Primary Care Provider] - Prescriptions: Magnesium Oxide [Mag-Ox] 400 mg PO DAILY #30 tablet Potassium Chloride 40 meq PO TID 30 Days #180 tab.er.prt
--- NOTE | 2019-01-22 09:38 | Infectious Disease Progress No ---
Date of Encounter: 01/22/19 Time of Encounter: 09:05 - Assessment and Plan (1) Osteomyelitis of toe Current Visit: Yes Status: Acute Location: Left foot first metatarsal head Causative organism: Staph epi, Propionibacterium propionicum, dermabacter homini s, and Corynebacterium amycolatum. Status post resection of the first metatarsal head for biopsy, sesamoid ectomy, excision of ulceration medial left foot, and deposition of antibiotic beads 01/11/[address] Caballero. Intraoperative cultures as above, including bone. No specimen sent for pathology. PICC in place, L arm Cr clearance 106 (adjusted range 55-76) Currently on Zosyn and vancomycin. Recommendations: Await susceptibilties on intra-op cultures. Wound care and dressing changes per the Podiatry team. Continue Vancomycin IV (day 7). Pharmacy to dose. Goal trough ~15. Continue Zosyn 3.375 grams IV Q8H (day 12). On d/c, consider vancomycin and cefotetan. Duration of treatment depends on the clinical picture, but likely 6 weeks. customer services manager to assist with discharge planning. Monitor renal function and for drug toxicity and dose-adjust antibiotics. 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 Stable with recent CP treated with nitro (2 doses) on 01/15/19. Management per primary team Qualifiers: Coronary Disease-Associated Artery/Lesion type: [place] artery [place] vs. transplanted heart: [place] heart Associated angina: without angina Qualified Code(s): I25.10 - Atherosclerotic heart disease of [place] coronary artery without angina pectoris (3) PAD (peripheral artery disease) Current Visit: No Status: Chronic Hx of PAD with related extremity neuropathy. No acute changes. Management per primary team (4) COPD (chronic obstructive pulmonary disease) Current Visit: No Status: Chronic Patient not in acute exacerbation. Plan: -Management per primary team Qualifiers: COPD type: chronic bronchitis Chronic bronchitis type: unspecified Qualified Code(s): J42 - Unspecified chronic bronchitis (5) Morbid obesity with BMI of 40.0-44.9, adult Current Visit: No Status: Acute BMI 43.7 Management per primary team - Subjective Interval history: The patient was seen and examined this morning resting comfortably in bed. No acute events over night. He admits improvement in the low back pain he experienced the day prior that he attributes to the mattress and being unable to reposition in the bed easily. The patient denies any increased pain in the L foot, chest pain, fever, chills, nausea, vomiting, cough, constipation. Infect Dis PN-Objective Data - Labs CBC & Chem 7: 01/21/19 14:48 01/21/19 05:07 Labs: Laboratory Results - last 24 hr 01/21/19 01/21/19 01/21/19 14:48 14:48 14:48 WBC 6.6 RBC 3.77 L Hgb 13.1 Hct 39.8 MCV 105.6 H MCH 34.7 H MCHC 32.9 RDW 15.1 H Plt Count 116 L MPV 9.2 L Immature Gran % 0.3 Seg Neutrophils % 60.1 Lymphocytes % 23.8 Monocytes % 7.3 Eosinophils % 7.9 Basophils % 0.6 Neutrophils # 4.0 Lymphocytes # 1.6 Monocytes # 0.5 Eosinophils # 0.5 Basophils # 0.0 ESR 56 H Vancomycin Trough 13 H Cultures: Cultures 01/11/19 08:47 Surgical Biopsy Culture - Preliminary Left Foot Staphylococcus epidermidis Gram Positive Rods Gram Positive Rods#2 01/11/19 08:47 Anaerobic Culture - Final Left Foot 01/11/19 08:25 Surgical Biopsy Culture - Preliminary Left Great Toe Staphylococcus epidermidis Gram Positive Rods 01/11/19 08:25 Anaerobic Culture - Final Left Great Toe No anaerobes were recovered. 01/11/19 08:25 Wound Culture - Final Left Great Toe Exam - Constitutional Vitals: Temp Pulse Resp BP Pulse Ox 97.8 F 77 16 118/69 94 01/22/19 08:36 01/22/19 08:36 01/22/19 08:36 01/22/19 08:36 01/22/19 08:36 Exam: Gen.: Vitals noted. Patient in no acute distress Head: Normocephalic, atraumatic ENT: mucosa pink, edentulous, no lesions Neck: Supple. No adenopathy. Cardiac: RRR, no murmur, +S1/S2 distant sounds due to body habitus Pulmonary: diffuse expiratory wheeze in upper smith, no rales, rhonchi equal chest expansion Abdomen: BSx4, obese, soft, nontender, no guarding or masses MSK: no joint swelling noted Skin: no other rashes, lesions Extremities: L foot with dressing in place, clean, dry, intact, able to curl toes, no ankle edema abigail, nontender calf, no cyanosis or clubbing Neuro: A&Ox3; LLE with only minimal proprioception at big toe, no proprioception at other digits and without fine touch sensation from ankle and below of BLE, moves all extremities Psych: Appropriate mood Consult Discharge Plan - Plan Referrals: Neli Hoover, EMILY [Primary Care Provider] - Prescriptions: RX: Magnesium Oxide [Mag-Ox] 400 mg PO DAILY #30 tablet RX: Potassium Chloride 40 meq PO TID 30 Days #180 tab.er.prt - Attending Attestation I have personally performed a face to face evaluation on this patient. I have reviewed and agree with the care plan. History and Exam by me shows: Patient seen and examined. Appears comfortable lying in bed. Physical exam HEENT PERRLA [place] Lungs clear to auscultation bilaterally Microvascular and rhythm Abdomen morbidly obese Labs reviewed cultures noted Assessment and plan: Osteomyelitis of the toe status post resection of first metatarsal head and biopsy, sesamoidectomy, excision of ulceration medial left foot and position of antibiotics bead 01/11/2019 Intra-Op cultures grew methicillin-resistant staph epi and Propionibacterium propionicum Continue vancomycin and Zosyn. Await susceptibility on all 3 organisms isolated Based on that will make further recommendations Monitor labs and for drug toxicity
[2019-01-22] MEDS: rOPINIRole 0.25 MG TABLET PO SCH (21:17)
[2019-01-23] MEDS: Budesonide/Formoterol 160/4.5 1 PUFF INH IH SCH (07:53)
[2019-01-23] MEDS: Metoprolol XL (24 HR) Succ 25 MG TAB.ER.24H PO SCH (09:43)
[2019-01-23] MEDS: Furosemide 40 MG TABLET PO SCH (09:44)
[2019-01-23] MEDS: Isosorbide MONOnitrate (24 HR) 60 MG TAB.ER.24H PO SCH (09:44)
[2019-01-23] MEDS: Magnesium Oxide 400 MG TABLET PO SCH (09:44)
[2019-01-23] MEDS: Multivit/Ca/Min/Fe/FA 1 TAB TABLET PO SCH (09:44)
[2019-01-23] MEDS: Ranolazine 500 MG TAB.ER.12H PO SCH (09:44)
[2019-01-23] MEDS: Nicotine 21 MG PATCH.TD24 TD SCH (09:45)
[2019-01-23] MEDS: Piperacillin/Tazobactam 3.375 GM in 0.9 % Sodium Chloride Mini Bag 100 ML IVPB SCH (09:47)
[2019-01-23] MEDS: Gabapentin 400 MG CAPSULE PO SCH ×2 (10:06→13:05)
--- NOTE | 2019-01-23 10:15 | Infectious Disease Progress No ---
Date of Encounter: 01/23/19 Time of Encounter: 09:00 - Assessment and Plan (1) Osteomyelitis of toe Status: Acute Location: Left foot first metatarsal head Causative organism: Staph epi, Propionibacterium propionicum, dermabacter hominis, and Corynebacterium amycolatum. -P. propionicum susceptible: pending -D. hominis susceptible: vancomycin, ceftriaxone, penicillin (intermediate, DORON=1), doxycycline, gentamicin, linezolid, meropenem -C. amycolatum susceptible: vancomycin, ceftriaxone (intermediate, DORON=2), penicillin (intermediate, DORON=1), doxycycline, gentamicin, linezolid, meropenem (intermediate, DORON 0.5) POD#12: Status post resection of the first metatarsal head for biopsy, sesamoid ectomy, excision of ulceration medial left foot, and deposition of antibiotic beads 01/11/[address] Caballero. Intraoperative cultures as above, including bone. No specimen sent for pathology. PICC in place, L arm Cr clearance 106 (adjusted range 55-76) Currently on Zosyn and vancomycin. Recommendations: Wound care and dressing changes per the Podiatry team. Continue Vancomycin IV (day 8). Pharmacy to dose. Goal trough ~15. Discharge regimen: -Continue vancomycin, duration 5 weeks (for total of 6 weeks) -Start cefotaxime 1g q12H Duration of treatment depends on the clinical picture, but likely 6 weeks. business services clerk to assist with discharge planning. Monitor renal function and for drug toxicity and dose-adjust antibiotics. 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 Stable with recent CP treated with nitro (2 doses) on 01/15/19. Management per primary team Qualifiers: Coronary Disease-Associated Artery/Lesion type: [place] artery [place] vs. transplanted heart: [place] heart Associated angina: without angina Qualified Code(s): I25.10 - Atherosclerotic heart disease of [place] coronary artery without angina pectoris (3) PAD (peripheral artery disease) Status: Chronic Hx of PAD with related extremity neuropathy. No acute changes. Management per primary team (4) COPD (chronic obstructive pulmonary disease) Status: Chronic Patient not in acute exacerbation. Plan: -Management per primary team Qualifiers: COPD type: chronic bronchitis Chronic bronchitis type: unspecified Qualified Code(s): J42 - Unspecified chronic bronchitis (5) Morbid obesity with BMI of 40.0-44.9, adult Status: Acute BMI 43.7 Management per primary team - Subjective Interval history: The patient was seen and examined this morning sitting comfortably in bed. No acute events over night. He admits episodes of intermittent L mid back pain described as 'needle-like' that radiates to his L side; this is exacerbated by certain position changes and the area becomes tender to touch. The patient denies any increased pain in the L foot, chest pain, fever, chills, nausea, vomiting, cough, constipation. Infect Dis PN-Objective Data - Labs CBC & Chem 7: 01/21/19 14:48 01/21/19 05:07 Cultures: Cultures 01/11/19 08:47 Surgical Biopsy Culture - Final Left Foot Staphylococcus epidermidis Gram Positive Rods Gram Positive Rods#2 01/11/19 08:47 Anaerobic Culture - Final Left Foot 01/11/19 08:25 Surgical Biopsy Culture - Preliminary Left Great Toe Staphylococcus epidermidis Gram Positive Rods 01/11/19 08:25 Anaerobic Culture - Final Left Great Toe No anaerobes were recovered. 01/11/19 08:25 Wound Culture - Final Left Great Toe Exam - Constitutional Vitals: Temp Pulse Resp BP Pulse Ox 98.3 F 86 16 109/76 93 01/23/19 07:52 01/23/19 07:52 01/23/19 07:56 01/23/19 07:52 01/23/19 07:56 Exam: Gen.: Vitals noted. Patient in no acute distress Head: Normocephalic, atraumatic ENT: mucosa pink, edentulous, no lesions Neck: Supple. No adenopathy. Cardiac: RRR, no murmur, +S1/S2 distant sounds due to body habitus Pulmonary: diffuse expiratory wheeze in upper smith, no rales, rhonchi equal chest expansion Abdomen: BSx4, obese, soft, nontender, no guarding or masses MSK: tenderness to palpation of area approx L rib 10, no overlying erythema, no joint swelling noted Skin: no other rashes, lesions Extremities: L foot with dressing in place, clean, dry, intact, able to curl toes, no ankle edema abigail, nontender calf, no cyanosis or clubbing Neuro: A&Ox3; LLE with only minimal proprioception at big toe, no proprioception at other digits and without fine touch sensation from ankle and below of BLE, moves all extremities Psych: Appropriate mood Consult Discharge Plan - Plan Referrals: Neli Hoover CNP [Primary Care Provider] - Prescriptions: RX: Cefotaxime (wt based) [Claforan (wt based)] 1,000 mg IVPB Q12HR 42 Days vial Vancomycin/0.9 % Sod Chloride [Vancomycin 1 G/100Ml-0.9% NaCl] 1 gm IV Q12HR 42 Days plast..bag RX: Gabapentin [Neurontin] 800 mg PO 0800,1300,1800,2300 #120 capsule RX: Magnesium Oxide [Mag-Ox] 400 mg PO DAILY #30 tablet RX: Metoprolol XL (24 HR) Succ [Toprol Xl] 25 mg PO DAILY #30 tab.er.24h RX: Potassium Chloride 40 meq PO TID 30 Days #180 tab.er.prt - Attending Attestation I examined this patient and my medical decision-making was reviewed with the Resident Physician. I agree with the documented findings, disposition and treatment plan as described except to the extent set forth below. atient seen and examined. Appears comfortable lying in bed. Physical exam HEENT PERRLA [place] Lungs clear to auscultation bilaterally Microvascular and rhythm Abdomen morbidly obese Labs reviewed cultures noted Assessment and plan: Osteomyelitis of the toe status post resection of first metatarsal head and biopsy, sesamoidectomy, excision of ulceration medial left foot and position of antibiotics bead 01/11/2019 Intra-Op cultures grew methicillin-resistant staph epi and Propionibacterium propionicum currently on vanco/zosyn based on susceptibility reports, will d/c on vancomycin and cefoxitine 1 g q12 follow up with me in clinic in 2 weeks weekly cbc, bmp, esr crp and vanc trough every tuesday duration of treatment at least 6 weeks Based on that will make further recommendations Monitor labs and for drug toxicity
[2019-01-23 11:54] VITALS: BP 96/66
--- NOTE | 2019-01-23 14:37 | Discharge Summary ---
Date of Encounter: 01/23/19 Time of Encounter: 12:45 Orders not resulted at time of discharge: Pending orders Follow up in Podiatry office with Dr. Caballero one week after discharge. Appointment scheduled for 02/02/2019 at 9:15. Follow up with ID after discharge. 01/11/19 08:25 Culture,Tissue (Biopsy) [RM] Routine 01/24/19 15:00 Vancomycin,Trough Timed - Discharge Diagnosis (1) Osteomyelitis of toe Priority: Primary Status: Acute Comments: Plan: -Discharge to [facility] for therapy and wound care -Dressing change daily. #1. Clean foot daily with soap and water. #2. Apply adaptic to sutures. #3. Cover site with 4x4's, Kerlix, and Medipore tape. #4. Monitor for any signs of infection. -Weight bearing in post op shoe left lower extremity -Keep extremity elevated when non-weight bearing -Follow up with Podiatry in one week, appointment scheduled. -Follow up with ID. (2) Hypokalemia Priority: Secondary Status: Chronic Comments: Plan: -Appears to be on 20 meq BID at home along with high dose diuretics, persistently low around 3.2 - 3.3 -Due to increase in level to 3.5 increased dosage to 40 meq TID (3) Hypomagnesemia Priority: Secondary Status: Acute Comments: Plan: -Follow up with PCP/nephrology as outpatient -normal x 2 days on PO supplement -script written (4) Hypertension Priority: Secondary Status: Chronic Comments: Plan: -Continue low dose -New script written Qualifiers: Hypertension type: essential hypertension Qualified Code(s): I10 - Essential (primary) hypertension Labs on day of discharge: Preliminary micro results at discharge 01/11/19 08:25 Surgical Biopsy Culture - Preliminary Left Great Toe Staphylococcus epidermidis Gram Positive Rods - Impressions ITS Impressions Foot X-Ray 01/11/19 00:00 IMPRESSION: Status post 1st metatarsal osteotomy with anatomic alignment of the 1st digit and immature bone packing material at the osteotomy site. D/ / 01/11/2019 12:04:28 Alejandro Curry MD / kori Interpreting Provider: Alejandro Curry MD - Hospital Course Hospital course: Mr. Baez is a 63 year old male admitted to the hospital on 01/11/2019 after resection of first metatarsal head for biopsy, sesamoidectomy, excision of ulceration medial left foot, deposition of antibiotic beads by Dr. Caballero. Patient's preoperative diagnosis was osteomyelitis first metatarsal phalangeal joint left foot. Postop x-ray showed evidence status post first metatarsal osteotomy anatomic alignment of the first digit and immature bone packing material at the osteotomy site. Anaerobic surgical cultures 01/11/2019 showed no anaerobes were recovered. Surgical wound culture from left great toe 01/11/2019 showed preliminary staphylococcus epidermis and gram positive rods. Surgical wound culture from left foot 01/11/2019 is final and is positive for staphylococcus epidermis and gram positive rods. ID was consulted for antibiotic recommendations. Per ID recommendations a PICC line was placed and the patient was started on long-term IV antibiotic therapy. Patient has remained afebrile since admission and hemodynamically stable. The patient has been receiving vancomycin and Zosyn while in the hospital IV. His white blood cell count on 01/21/2019 was 6.6 and has remained stable since admission. Patient's ESR is 56 increased from 48, however this is expected after surgery. CRP is down to 8 from 10. Patient has done well since his admission to the hospital. He will be discharged to the extended care facility, [facility] in stable condition. Time spent discussing smoking cessation with patient: 3 to 10 minutes - Time Spent with Patient Total time spent providing and/or coordinating discharge services: Greater than 30 minutes Specific discharge activities: Weight bearing post op shoe left lower extremity - Discharge Medications Prescriptions: New RX: Magnesium Oxide [Mag-Ox] 400 mg PO DAILY #30 tablet RX: Potassium Chloride 40 meq PO TID 30 Days #180 tab.er.prt RX: Cefotaxime (wt based) [Claforan (wt based)] 1,000 mg IVPB Q12HR 42 Days vial Vancomycin/0.9 % Sod Chloride [Vancomycin 1 G/100Ml-0.9% NaCl] 1 gm IV Q12HR 42 Days plast..bag RX: Metoprolol XL (24 HR) Succ [Toprol Xl] 25 mg PO DAILY tab.er.24h Continue RX: Ropinirole HCl [Requip] 0.5 mg PO HS RX: Gabapentin [Neurontin] 800 mg PO 0800,1300,1800,2300 RX: Clopidogrel [Plavix] 75 mg PO DAILY RX: Multivit,Th Iron,Other Min [Therems-M] 1 tab PO DAILY RX: Clobetasol Propionate 0.05% [Temovate] 1 appl TP DAILY PRN PRN Reason: LEG IRRITATION RX: Lovastatin 40 mg PO DAILY RX: Omeprazole [PriLOSEC] 20 mg PO DAILY RX: Ipratropium/Albuterol Neb [Duoneb] 3 ml IH Q6HR PRN PRN Reason: Shortness Of Breath RX: Furosemide [Lasix] 80 mg PO BID RX: Cilostazol [Pletal] 100 mg PO BID RX: Calcitriol 0.5 mcg PO BID RX: BuPROPion [Wellbutrin] 100 mg PO DAILY RX: Allopurinol [Zyloprim 300 MG] 300 mg PO DAILY RX: Ezetimibe 10 mg PO DAILY RX: Nitroglycerin [Nitrostat] 0.4 mg SL AD PRN PRN Reason: Chest Pain RX: Albuterol Sulfate [Ventolin Hfa] 2 puff IH BID RX: Fluticasone/Vilanterol [Breo Ellipta 200-25 Mcg INH] 1 puff IH DAILY RX: Ranolazine [Ranexa] 500 mg PO BID RX: Isosorbide MONOnitrate (24 HR) [Imdur] 60 mg PO BID Discontinued RX: Potassium Chloride 20 meq PO BID RX: Metoprolol Succinate [Toprol Xl] 50 mg PO BID Home Medications: RX: Albuterol Sulfate [Ventolin Hfa] 2 puff IH BID 11/14/18 [History] RX: Allopurinol [Zyloprim 300 MG] 300 mg PO DAILY 11/14/18 [History] RX: BuPROPion [Wellbutrin] 100 mg PO DAILY 11/14/18 [History] RX: Calcitriol 0.5 mcg PO BID 11/14/18 [History] RX: Cilostazol [Pletal] 100 mg PO BID 11/14/18 [History] RX: Clobetasol Propionate 0.05% [Temovate] 1 appl TP DAILY PRN 11/14/18 [History] RX: Clopidogrel [Plavix] 75 mg PO DAILY 11/14/18 [History] RX: Ezetimibe 10 mg PO DAILY 11/14/18 [History] RX: Fluticasone/Vilanterol [Breo Ellipta 200-25 Mcg INH] 1 puff IH DAILY 11/14/18 [History] RX: Furosemide [Lasix] 80 mg PO BID 11/14/18 [History] RX: Gabapentin [Neurontin] 800 mg PO 0800,1300,1800,2300 11/14/18 [History] RX: Ipratropium/Albuterol Neb [Duoneb] 3 ml IH Q6HR PRN 11/14/18 [History] RX: Lovastatin 40 mg PO DAILY 11/14/18 [History] RX: Multivit,Th Iron,Other Min [Therems-M] 1 tab PO DAILY 11/14/18 [History] RX: Nitroglycerin [Nitrostat] 0.4 mg SL AD PRN 11/14/18 [History] RX: Omeprazole [PriLOSEC] 20 mg PO DAILY 11/14/18 [History] RX: Ranolazine [Ranexa] 500 mg PO BID 11/14/18 [History] RX: Ropinirole HCl [Requip] 0.5 mg PO HS 11/14/18 [History] RX: Isosorbide MONOnitrate (24 HR) [Imdur] 60 mg PO BID 01/11/19 [History] RX: Magnesium Oxide [Mag-Ox] 400 mg PO DAILY #30 tablet 01/19/19 [Rx] RX: Potassium Chloride 40 meq PO TID 30 Days #180 tab.er.prt 01/19/19 [Rx] RX: Cefotaxime (wt based) [Claforan (wt based)] 1,000 mg IVPB Q12HR 42 Days vial 01/23/19 [Rx] RX: Metoprolol XL (24 HR) Succ [Toprol Xl] 25 mg PO DAILY tab.er.24h 01/23/19 [Rx] Vancomycin/0.9 % Sod Chloride [Vancomycin 1 G/100Ml-0.9% NaCl] 1 gm IV Q12HR 42 Days plast..bag 01/23/19 [Rx] Allergies/Adverse Reactions: Allergy/AdvReac Type Severity Reaction Status Date / Time doxycycline AdvReac Nausea Verified 01/11/19 07:29 esomeprazole [From Nexium] AdvReac Nausea Verified 01/11/19 07:29 Date of admission: 01/15/19 15:29 Primary care physician: Neli Hoover CNP Consults: 01/11/19 13:50 Consult to Hospitalist [CONS] Routine Consulting Provider: Hospitalist Josephine Reason for Consult: Diabetes mellitus type 2 with multiple comorbidities Time Notified: 09:21 Call Completed: Yes 01/15/19 14:05 Consult to Infectious Diseases [CONS] Routine Consulting Provider: Infectious Disease Tata Reason for Consult: Antibiotic recommendtions and management Call Completed: Yes 01/16/19 09:47 Consult to Invasive Line Access Team [CONS] Routine Reason for Consult: Picc Line Insertion for outpt. antibiotics Line Type: PICC 01/18/19 10:00 Consult to Occupational Therapy [CONS] Routine Comment: Evaluate, develop and implement POC Reason for Consult: Needs PT/OT eval for SNF acceptance. Patient is weight bearing in post op shoe to LLE. Does patient have active BEDREST order?: No Is patient medically & hemodynamically stable?: Yes Patient assessed for mobility or mobilized this visit?: No Consult to Physical Therapy [CONS] Routine Comment: Evaluate, develop and implement POC Reason for Consult: Needs PT/OT eval for SNF acceptance. Patient is weight bearing in post op shoe to LLE. Does patient have active BEDREST order?: No Is patient medically & hemodynamically stable?: Yes Patient assessed for mobility or mobilized this visit?: No Discharging clinician: Loraine Perez Anticipated date of discharge: 01/23/19 - Patient Status Disposition: Transfer SNF Condition: Good Functional capacity at discharge: independent ambulation Overall status at discharge: patient is progressing back to baseline - Discharge Instructions Follow Up With: Neli Hoover CNP [Primary Care Provider] - - Diet and Activity Activity: other (Ambulation with post op shoe left lower extremity ) Diet: advance to your usual diet
--- NOTE | 2019-01-23 17:18 | Physician Discharge Referral ---
ExtendedCare Referral Info Transfer To: F Provider in Charge: Federico Provider in Charge after Transfer: Other (Facility physician) Institutional Level of Care: Skilled - Diagnosis (1) Osteomyelitis of foot, left, acute Priority: Primary Status: Acute Expected Duration of Placement: 6 weeks Prognosis: Good Aware of Diagnosis: Patient Aware of Prognosis: Patient - Transfer Medications Prescriptions: Cefotaxime (wt based) [Claforan (wt based)] 1,000 mg IVPB Q12HR 42 Days vial Vancomycin/0.9 % Sod Chloride [Vancomycin 1 G/100Ml-0.9% NaCl] 1 gm IV Q12HR 42 Days plast..bag Magnesium Oxide [Mag-Ox] 400 mg PO DAILY #30 tablet Potassium Chloride 40 meq PO TID 30 Days #180 tab.er.prt Home Medications: Albuterol Sulfate [Ventolin Hfa] 2 puff IH BID 11/14/18 [History] Allopurinol [Zyloprim 300 MG] 300 mg PO DAILY 11/14/18 [History] BuPROPion [Wellbutrin] 100 mg PO DAILY 11/14/18 [History] Calcitriol 0.5 mcg PO BID 11/14/18 [History] Cilostazol [Pletal] 100 mg PO BID 11/14/18 [History] Clobetasol Propionate 0.05% [Temovate] 1 appl TP DAILY PRN 11/14/18 [History] Clopidogrel [Plavix] 75 mg PO DAILY 11/14/18 [History] Ezetimibe 10 mg PO DAILY 11/14/18 [History] Fluticasone/Vilanterol [Breo Ellipta 200-25 Mcg INH] 1 puff IH DAILY 11/14/18 [History] Furosemide [Lasix] 80 mg PO BID 11/14/18 [History] Gabapentin [Neurontin] 800 mg PO 0800,1300,1800,2300 11/14/18 [History] Ipratropium/Albuterol Neb [Duoneb] 3 ml IH Q6HR PRN 11/14/18 [History] Lovastatin 40 mg PO DAILY 11/14/18 [History] Multivit,Th Iron,Other Min [Therems-M] 1 tab PO DAILY 11/14/18 [History] Nitroglycerin [Nitrostat] 0.4 mg SL AD PRN 11/14/18 [History] Omeprazole [PriLOSEC] 20 mg PO DAILY 11/14/18 [History] Ranolazine [Ranexa] 500 mg PO BID 11/14/18 [History] Ropinirole HCl [Requip] 0.5 mg PO HS 11/14/18 [History] Isosorbide MONOnitrate (24 HR) [Imdur] 60 mg PO BID 01/11/19 [History] Magnesium Oxide [Mag-Ox] 400 mg PO DAILY #30 tablet 01/19/19 [Rx] Potassium Chloride 40 meq PO TID 30 Days #180 tab.er.prt 01/19/19 [Rx] Cefotaxime (wt based) [Claforan (wt based)] 1,000 mg IVPB Q12HR 42 Days vial 01/23/19 [Rx] Metoprolol XL (24 HR) Succ [Toprol Xl] 25 mg PO DAILY tab.er.24h 01/23/19 [Rx] Vancomycin/0.9 % Sod Chloride [Vancomycin 1 G/100Ml-0.9% NaCl] 1 gm IV Q12HR 42 Days plast..bag 01/23/19 [Rx] Allergies/Adverse Reactions: Allergy/AdvReac Type Severity Reaction Status Date / Time doxycycline AdvReac Nausea Verified 01/11/19 07:29 esomeprazole [From Nexium] AdvReac Nausea Verified 01/11/19 07:29 - Respiratory Orders Smoking Cessation: Smoking cessation has been advised. For more information, call the [place] Tobacco Quit Line at 8-887-DDNG-NOW. - Lab Orders Lab Orders: CBC, Other (include drug levels w/frequency) (CBC BMP ESR CRP weekly) - Ancillary Orders May use pressure relief devices daily prn, May consult with Dentist, Supervisor Uranium Processing, Nursery Supervisor PRN - Advance Directives Code Status: Full Code - Mobility Orders Ambulate (With assistance walker and postop shoe/boot) - Rehabiliation Orders Rehab Potential: Good Rehab Orders: ROM Exercises, Evaluation for Physical Therapy, Evaluation for Occupational Therapy, Evaluation for Speech Therapy - Treatments List/Other: #1: Cleanse left foot incisions mild soap and warm water apply Adaptic 4 x 4's and Kerlix every other day - Diet Orders No Added Salt (CARI), Cardiac CERTIFICATION: I certify that the transfer of the above named patient to an Extended Care Facility is necessary for the continuing treatment of the diagnosis listed. The above information is true and accurate reflection of patient's current condition. Confidential - Redisclosure prohibited without a patient's written consent.
[2019-01-23] MEDS ORDERED: Aminoglycoside Consult 1 EACH MC ONE (18:36)
== END 2019-01-23 18:37 | DRG 314 ==
LOC: SAMDAY 06:06 → 3ANU 13:46
PROVIDERS: ADMIT Podiatrist Foot Surgery; ATTEND Podiatrist Foot Surgery

== ENCOUNTER 2019-03-12 17:35 | Observation (INO) ==
[2019-03-12 20:02] LABS: Basophils % 0.4 %; Eosinophils # 0.3 K/mcL (0.0-0.6); Eosinophils % 4.8 %; Hematocrit 43.7 % (37.5-50.1); Hemoglobin 15.1 g/dL (12.9-16.9); Immature Granulocytes % 0.1 % (0-4); Lymphocytes # 1.9 K/mcL (0.6-4.6); Lymphocytes % 27.4 %; Mean Corpuscular HGB Conc 34.6 g/dL (31.6-35.5); Mean Corpuscular Hemoglobin 34.2 pg (28.0-33.3); Mean Platelet Volume 9.9 fL (9.4-12.4); Monocytes # 0.7 K/mcL (0.0-1.3); Monocytes % 10.4 %; Platelet Count 138 K/mcL (140-400); Red Blood Count 4.41 M/mcL (4.19-5.50); Red Cell Distribution Width 13.2 % (11.5-14.5); Segmented Neutrophils % 56.9 %
[2019-03-12 20:05] LABS: Mean Corpuscular Volume 99.1 fL (83.0-100.0)
[2019-03-12 20:15] LABS: Alanine Aminotransferase 14 Units/L (7-52); Albumin 3.8 g/dL (3.5-5.7); Albumin/Globulin Ratio 1.2 (1.1-2.2); Alkaline Phosphatase 90 Units/L (34-104); Aspartate Amino Transferase 18 Units/L (13-39); BUN/Creatinine Ratio 9 (6-26); Bilirubin,Direct 0.2 mg/dL (0.0-0.2); Bilirubin,Indirect 0.6 mg/dL (0.0-1.2); Bilirubin,Total 0.8 mg/dL (0.3-1.0); Blood Urea Nitrogen 12 mg/dL (8-23); Calcium 10.4 mg/dL (8.6-10.3); Carbon Dioxide 24 mEq/L (23-29); Chloride 106 mEq/L (98-107); Globulin 3.1 g/dL (2.4-3.5); Glucose 90 mg/dL (70-105); Lipase 10 Units/L (11-82); Osmolality,Calculated 287 (280-300); Potassium 2.5 mEq/L (3.5-5.1); Sodium 139 mEq/L (136-145); Total Protein 6.9 g/dL (6.4-8.9); eGFR For Non-African Americans 51 (> 60)
[2019-03-12] MEDS ORDERED: Isovue-370 500 ML BOTTLE IVP ONE (20:28)
[2019-03-12] MEDS ORDERED: Potassium Chloride 40 MEQ, Lidocaine 1% 2 ML in D5% in Water 500 ML IVPB ONE (20:29)
[2019-03-12] MEDS ORDERED: 0.9 % Sodium Chloride 1,000 ML IVC ONE (20:29)
--- NOTE | 2019-03-12 20:32 | Emergency Department Note ---
Disposition Clinical Impression: Dehydration, Hypokalemia, Colitis Disposition: Admitted As Inpatient Condition: Good Nausea/Vomiting/Diarrhea HPI - General Chief complaint: ED Nausea/Vomiting/Diarrhea Stated complaint: N/V/D ABD Pain Time Seen by Provider: 03/12/19 20:19 Source: patient Mode of arrival: ambulatory Limitations: no limitations Nursing Notes Reviewed: Yes Vital Signs Reviewed: Yes - History of Present Illness HPI Narrative: Patient presenting ED with the chief complaint of abdominal pain, nausea, vomiting, diarrhea. The abdominal pain started about a week ago and is progressively worsening, diffuse and crampy in nature. States he has been having yellow diarrhea over the last week as well. He states that he has had diarrhea for some time and is supposed to be scheduled for colonoscopy soon, but his primary care physician "forgot" to do that. He denies any fever or chills. No chest pain or shortness breath. Has been having some exertional fatigue and near syncopal episodes. States he feels lightheaded and dizzy at times. States over the last few days he has been unable to keep anything down and had profuse vomiting. States he feels like he has "infection in his colon." No rash. Has had kidney stones in the past. States this feels similar. - Related Data Home Medications Medication Instructions Recorded Confirmed Albuterol Sulfate [Ventolin Hfa] 2 puff IH BID 11/14/18 03/14/19 Allopurinol [Zyloprim 300 MG] 300 mg PO DAILY 11/14/18 03/14/19 BuPROPion [Wellbutrin] 100 mg PO DAILY 11/14/18 03/14/19 Calcitriol 0.5 mcg PO BID 11/14/18 03/14/19 Cilostazol [Pletal] 100 mg PO BID 11/14/18 03/14/19 Clobetasol Propionate 0.05% 1 appl TP DAILY PRN 11/14/18 03/14/19 [Temovate] Clopidogrel [Plavix] 75 mg PO DAILY 11/14/18 03/14/19 Ezetimibe 10 mg PO DAILY 11/14/18 03/14/19 Fluticasone/Vilanterol [Breo 1 puff IH DAILY 11/14/18 03/14/19 Ellipta 200-25 Mcg INH] Furosemide [Lasix] 80 mg PO BID 11/14/18 03/14/19 Lovastatin 40 mg PO DAILY 11/14/18 03/14/19 Multivit,Th Iron,Other Min 1 tab PO DAILY 11/14/18 03/14/19 [Therems-M] Nitroglycerin [Nitrostat] 0.4 mg SL AD PRN 11/14/18 03/14/19 Omeprazole [PriLOSEC] 20 mg PO DAILY 11/14/18 03/14/19 Ranolazine [Ranexa] 500 mg PO BID 11/14/18 03/14/19 Ropinirole HCl [Requip] 0.5 mg PO HS 11/14/18 03/14/19 Isosorbide MONOnitrate (24 HR) 60 mg PO BID 01/11/19 03/14/19 [Imdur] Gabapentin [Neurontin] 800 mg PO QID 03/14/19 03/14/19 Ipratropium/Albuterol Sulfate 3 ml IH Q6H PRN 03/14/19 03/14/19 [Iprat-Albut 0.5-3(2.5) mg/3 ml] Potassium Chloride [K-Tab ER] 40 meq PO TID 03/14/19 03/14/19 Tramadol HCl [Ultram] 50 mg PO QID PRN 03/14/19 03/14/19 Previous Rx's Medication Instructions Recorded Magnesium Oxide [Mag-Ox] 400 mg PO DAILY #30 tablet 01/19/19 Metoprolol XL (24 HR) Succ [Toprol 25 mg PO DAILY #30 tab.er.24h 01/23/19 Xl] Lactobacillus [Culturelle] 1 each PO BID 30 Days #60 03/14/19 cap.sprink Vancomycin HCl 125 mg PO QID 10 Days #40 cap 03/14/19 Allergies Allergy/AdvReac Type Severity Reaction Status Date / Time doxycycline AdvReac Nausea Verified 01/11/19 07:29 esomeprazole [From Nexium] AdvReac Nausea Verified 01/11/19 07:29 Review of Systems: As reviewed in the HPI. All other systems reviewed are negative or normal. Past Medical History - Past Medical History Attestation: Yes The following information was validated with the patient. Source: patient Medical history: Reports: CHF, COPD, coronary artery disease, DVT, hyperlipidemia, hypertension, peripheral artery disease, renal disease Surgical history: Reports: cataract Psychiatric history: Reports: anxiety, depression - Social History Smoking Status: Former smoker Smokeless Tobacco Status: No Alcohol use: Reports: none Drug use: Reports: none Physical Exam CONSTITUTIONAL: [well appearing, alert and in no acute distress] EYES: [EOMI, clear conjunctiva, PERRLA] HENT: [Normocephalic, atraumatic, moist mucus membranes, normal oropharynx] NECK: [normal inspection, full ROM, trachea midline, no obvious swelling] PULMONARY: [normal lung sounds bilaterally, normal chest rise and fall, no respiratory distress or stridor, no wheezes, no rales, no rhonchi CARDIOVASCULAR: [regular rate, regular rhythm, normal heart sounds, no murmurs, distal extremities are warm and well perfused] GASTROINSTESTINAL: [soft, morbidly obese, and diffusely tender, non-distended, no guarding, no rebound, normal bowel sounds] GENITOURINARY/RECTAL: [deferred] NEUROLOGIC: [Alert, oriented x3, normal speech, moves all extremities] EXTREMITIES: [Normal inspection, full ROM, no tenderness, no pedal edema, normal capillary refill] MUSCULOSKELETAL: [no gross deformities, atraumatic] SKIN: [No cyanosis, no diaphoresis, normal color, warm, no rash] PSYCHIATRIC: [normal mood and affect] - General Limitations: no limitations General appearance: alert, in no apparent distress Course Vital Signs Temperature 98.0 F 03/12/19 17:40 Pulse Rate 79 03/12/19 17:40 Respiratory Rate 18 03/12/19 17:40 Blood Pressure 142/93 03/12/19 17:40 O2 Sat by Pulse Oximetry 98 03/12/19 17:40 Temperature 98.0 F 03/12/19 17:40 Pulse Rate 79 03/12/19 17:40 Respiratory Rate 18 03/12/19 17:40 Blood Pressure 142/93 03/12/19 17:40 O2 Sat by Pulse Oximetry 98 03/12/19 17:40 Oxygen Delivery Oxygen Delivery Room Air Nausea/Vomiting/Diarrhea - Lab Data Result diagrams: 03/14/19 06:54 03/14/19 08:57 Lab Results 03/12/19 03/12/19 Range/Units 19:32 19:32 WBC 6.9 (4.3-11.1) K/mcL RBC 4.41 (4.19-5.50) M/mcL Hgb 15.1 (12.9-16.9) g/dL Hct 43.7 (37.5-50.1) % MCV 99.1 D (83.0-100.0) fL MCH 34.2 H (28.0-33.3) pg MCHC 34.6 (31.6-35.5) g/dL RDW 13.2 (11.5-14.5) % Plt Count 138 L (140-400) K/mcL MPV 9.9 (9.4-12.4) fL Immature Gran % 0.1 (0-4) % Seg Neutrophils % 56.9 % Lymphocytes % 27.4 % Monocytes % 10.4 % Eosinophils % 4.8 % Basophils % 0.4 % Neutrophils # 4.0 (1.6-8.9) K/mcL Lymphocytes # 1.9 (0.6-4.6) K/mcL Monocytes # 0.7 (0.0-1.3) K/mcL Eosinophils # 0.3 (0.0-0.6) K/mcL Basophils # 0.0 (0.0-0.2) K/mcL Sodium 139 (136-145) mEq/L Potassium 2.5 L* (3.5-5.1) mEq/L Chloride 106 (98-107) mEq/L Carbon Dioxide 24 (23-29) mEq/L BUN 12 (8-23) mg/dL Creatinine 1.40 H (0.70-1.30) mg/dL Est GFR ( Amer) > 60 (> 60) Est GFR (Non-Af Amer) 51 L (> 60) BUN/Creatinine Ratio 9 (6-26) Glucose 90 (70-105) mg/dL Calculated Osmolality 287 (280-300) Calcium 10.4 H (8.6-10.3) mg/dL Total Bilirubin 0.8 (0.3-1.0) mg/dL Direct Bilirubin 0.2 (0.0-0.2) mg/dL Indirect Bilirubin 0.6 (0.0-1.2) mg/dL AST 18 (13-39) Units/L ALT 14 (7-52) Units/L Alkaline Phosphatase 90 (34-104) Units/L Serum Total Protein 6.9 (6.4-8.9) g/dL Albumin 3.8 (3.5-5.7) g/dL Globulin 3.1 (2.4-3.5) g/dL Albumin/Globulin Ratio 1.2 (1.1-2.2) Lipase 10 L (11-82) Units/L Attestation Statement - Attestation Attestation: I have seen this patient with the resident physician, I have personally evaluated this patient. I had reviewed the chart and document dictation by the resident physician and aM in agreement with the information documented by the resident physician. Please see documentation by the resident physician for complete chart including past medical history, family medical history, review of systems, current history and physical and laboratory and imaging studies. I was present for all procedures, provided direct supervision for all procedures, was present for the entirety of all procedures and provided direct guidance during the procedures. Please see documentation by the resident physician for any procedures performed.
[2019-03-12] MEDS ORDERED: *HR* HYDROmorphone (PF) 1 MG/ML SYRINGE IVP ONE (20:40)
[2019-03-12] MEDS ORDERED: Ondansetron 4 MG/2 ML VIAL IVP ONE (20:40)
[2019-03-12] MEDS ORDERED: MetroNIDAZOLE 500 MG/100 ML 500 MG/100 ML BAG IVPB ONE (23:02)
--- NOTE | 2019-03-12 23:13 | Emergency Department Note ---
Disposition Clinical Impression: Dehydration, Hypokalemia, Colitis Disposition: Admitted As Inpatient Condition: Fair Referrals: Neli Hoover CNP [Primary Care Provider] - Forms: ED Satisfaction Letter General Adult HPI - General Chief complaint: ED Nausea/Vomiting/Diarrhea Stated complaint: N/V/D ABD Pain Time Seen by Provider: 03/12/19 20:19 Source: patient Mode of arrival: ambulatory Limitations: no limitations - History of Present Illness Pain Scale: 6 - Related Data Home Medications Medication Instructions Recorded Confirmed Albuterol Sulfate [Ventolin Hfa] 2 puff IH BID 11/14/18 01/11/19 Allopurinol [Zyloprim 300 MG] 300 mg PO DAILY 11/14/18 01/11/19 BuPROPion [Wellbutrin] 100 mg PO DAILY 11/14/18 01/11/19 Calcitriol 0.5 mcg PO BID 11/14/18 01/11/19 Cilostazol [Pletal] 100 mg PO BID 11/14/18 01/11/19 Clobetasol Propionate 0.05% 1 appl TP DAILY PRN 11/14/18 01/11/19 [Temovate] Clopidogrel [Plavix] 75 mg PO DAILY 11/14/18 01/11/19 Ezetimibe 10 mg PO DAILY 11/14/18 01/11/19 Fluticasone/Vilanterol [Breo 1 puff IH DAILY 11/14/18 01/11/19 Ellipta 200-25 Mcg INH] Furosemide [Lasix] 80 mg PO BID 11/14/18 01/11/19 Ipratropium/Albuterol Neb [Duoneb] 3 ml IH Q6HR PRN 11/14/18 01/11/19 Lovastatin 40 mg PO DAILY 11/14/18 01/11/19 Multivit,Th Iron,Other Min 1 tab PO DAILY 11/14/18 01/11/19 [Therems-M] Nitroglycerin [Nitrostat] 0.4 mg SL AD PRN 11/14/18 01/11/19 Omeprazole [PriLOSEC] 20 mg PO DAILY 11/14/18 01/11/19 Ranolazine [Ranexa] 500 mg PO BID 11/14/18 01/11/19 Ropinirole HCl [Requip] 0.5 mg PO HS 11/14/18 01/11/19 Isosorbide MONOnitrate (24 HR) 60 mg PO BID 01/11/19 01/11/19 [Imdur] Previous Rx's Medication Instructions Recorded Magnesium Oxide [Mag-Ox] 400 mg PO DAILY #30 tablet 01/19/19 Gabapentin [Neurontin] 800 mg PO 0800,1300,1800,2300 #120 01/23/19 capsule Metoprolol XL (24 HR) Succ [Toprol 25 mg PO DAILY tab.er.24h 01/23/19 Xl] Metoprolol XL (24 HR) Succ [Toprol 25 mg PO DAILY #30 tab.er.24h 01/23/19 Xl] Allergies Allergy/AdvReac Type Severity Reaction Status Date / Time doxycycline AdvReac Nausea Verified 01/11/19 07:29 esomeprazole [From Nexium] AdvReac Nausea Verified 01/11/19 07:29 Past Medical History - Past Medical History Medical history: Reports: CHF, COPD, coronary artery disease, DVT, hyperlipidemia, hypertension, peripheral artery disease, renal disease Surgical history: Reports: cataract Psychiatric history: Reports: anxiety, depression - Social History Smoking Status: Former smoker Smokeless Tobacco Status: No Alcohol use: Reports: none Drug use: Reports: none Physical Exam - General Limitations: no limitations General appearance: alert, in no apparent distress Course Vital Signs Temperature 98.0 F 03/12/19 17:40 Pulse Rate 79 03/12/19 17:40 Respiratory Rate 18 03/12/19 17:40 Blood Pressure 142/93 03/12/19 17:40 O2 Sat by Pulse Oximetry 98 03/12/19 17:40 Temperature 98.0 F 03/12/19 17:40 Pulse Rate 85 03/12/19 22:17 Respiratory Rate 18 03/12/19 17:40 Blood Pressure 111/70 03/12/19 22:17 O2 Sat by Pulse Oximetry 98 03/12/19 17:40 Oxygen Delivery Oxygen Delivery Room Air Medical Decision Making - Lab Data Result diagrams: 03/12/19 19:32 03/12/19 19:32 Lab Results 03/12/19 03/12/19 Range/Units 19:32 19:32 WBC 6.9 (4.3-11.1) K/mcL RBC 4.41 (4.19-5.50) M/mcL Hgb 15.1 (12.9-16.9) g/dL Hct 43.7 (37.5-50.1) % MCV 99.1 D (83.0-100.0) fL MCH 34.2 H (28.0-33.3) pg MCHC 34.6 (31.6-35.5) g/dL RDW 13.2 (11.5-14.5) % Plt Count 138 L (140-400) K/mcL MPV 9.9 (9.4-12.4) fL Immature Gran % 0.1 (0-4) % Seg Neutrophils % 56.9 % Lymphocytes % 27.4 % Monocytes % 10.4 % Eosinophils % 4.8 % Basophils % 0.4 % Neutrophils # 4.0 (1.6-8.9) K/mcL Lymphocytes # 1.9 (0.6-4.6) K/mcL Monocytes # 0.7 (0.0-1.3) K/mcL Eosinophils # 0.3 (0.0-0.6) K/mcL Basophils # 0.0 (0.0-0.2) K/mcL Sodium 139 (136-145) mEq/L Potassium 2.5 L* (3.5-5.1) mEq/L Chloride 106 (98-107) mEq/L Carbon Dioxide 24 (23-29) mEq/L BUN 12 (8-23) mg/dL Creatinine 1.40 H (0.70-1.30) mg/dL Est GFR ( Amer) > 60 (> 60) Est GFR (Non-Af Amer) 51 L (> 60) BUN/Creatinine Ratio 9 (6-26) Glucose 90 (70-105) mg/dL Calculated Osmolality 287 (280-300) Calcium 10.4 H (8.6-10.3) mg/dL Total Bilirubin 0.8 (0.3-1.0) mg/dL Direct Bilirubin 0.2 (0.0-0.2) mg/dL Indirect Bilirubin 0.6 (0.0-1.2) mg/dL AST 18 (13-39) Units/L ALT 14 (7-52) Units/L Alkaline Phosphatase 90 (34-104) Units/L Serum Total Protein 6.9 (6.4-8.9) g/dL Albumin 3.8 (3.5-5.7) g/dL Globulin 3.1 (2.4-3.5) g/dL Albumin/Globulin Ratio 1.2 (1.1-2.2) Lipase 10 L (11-82) Units/L Attestation Statement - Attestation Attestation: I have seen this patient with the resident physician, I have personally evaluated this patient. I had reviewed the chart and document dictation by the resident physician and aM in agreement with the information documented by the resident physician. Please see documentation by the resident physician for complete chart including past medical history, family medical history, review of systems, current history and physical and laboratory and imaging studies. I was present for all procedures, provided direct supervision for all procedures, was present for the entirety of all procedures and provided direct guidance during the procedures. Please see documentation by the resident physician for any procedures performed. Patient presented emergency department with chief complaint of abdominal cramping nausea diarrhea generalized weakness, dizziness with near syncope with standing today. He has completed multiple rounds of antibiotics for a foot infection, started having diarrhea over the last several days, decreased by mouth intake and feeling worse. On physical exam he appears slightly dehydrated with slightly dry appearing mucous membranes. Cranial nerves are grossly intact lungs are clear heart is regular abdomen is soft, hyperactive bowel sounds, some mild tenderness of the left side of the abdomen without peritoneal sign. Basic laboratory studies were within acceptable limits except for hypokalemia of 2.5. He was given IV fluids he was given IVs potassium supplementation. Secondary diarrhea, multiple recent antibiotics, as well as left-sided abdominal pain and a CT scan of the abdomen pelvis was ordered which showed findings highly concerning for colitis and pseudomembranous colitis he was given IV Flagyl and he was admitted to the hospital for further management of hypokalemia dehydration and colitis.
[2019-03-13] MEDS ORDERED: Vancomycin Oral Soln 125 MG/2.5 ML UDC PO ONE (00:29)
[2019-03-13] MEDS: 0.9 % Sodium Chloride w KCl 20 MEQ/1,000 ML MLS IVC SCH ×2 (03:17→15:27)
[2019-03-13] MEDS ORDERED: Ondansetron 4 MG/2 ML VIAL IVP PRN (08:07)
[2019-03-13] MEDS ORDERED: Naloxone 0.4 MG/ML INJ IVP PRN (08:07)
[2019-03-13] MEDS ORDERED: traMADol 50 MG TABLET PO PRN (08:07)
[2019-03-13] MEDS ORDERED: Ipratropium/Albuterol Neb 3 ML IH PRN (08:09)
--- NOTE | 2019-03-13 08:54 | Internal Med History&Physical ---
Date of Encounter: 03/13/19 Time of Encounter: 08:49 Internal Medicine - H&P: HPI Chief complaint: diarrhea, nausea and vomiting Admitted From: Home Plans for Post Hospital Care: Home History of present illness: Mr. Baez is a 64 year old male PMH of HTN, CKD, CHF, CAD s/p CABG in 2002, COPD and osteomyelitis of the left foot. patient presented to the ED due to diarrhea, nausea and vomiting. Patient reports he has been having chronic diarrhea for the past 20 months, but for the past week the diarrhea got worse, which he describes as increase frequency, having 6-8 watery, yellow, mucus, bowel movement a day. He also reports that this time the stool has a particular smell to it, deferent from before. He also report nausea and dry heaves every time he eats something. Report GERD like symptoms and dysuria and frequency. Denies abdominal pain, or blood in his urine of the stool. Denies fever or chills. Reports completing 6 weeks of IV antibiotics treatment for Osteomyelitis about 2 weeks ago. Past Med Surg Social Fam HX - Past Medical History Medical history: CHF, COPD, coronary artery disease, DVT, hyperlipidemia, hypertension, peripheral artery disease, renal disease Additional medical history: Polyneuropathy Psychiatric history: anxiety, depression - Past Surgical History Surgical History: cataract Additional surgical history: LEft CEA, Triple vessel CABG, Cholecystectomy, Tonsillectomy, cataract removal, I/D left foot 02/21/2018 - Social History Smoking Status: Former smoker Smokeless Tobacco Status: No Alcohol use: none Drug use: none - Family History Father Adopted: No Family Member Ethnicity: Non- Living Status: Still Living Hx Family Cardiac Disorders: Yes Hx Family Respiratory Disorders: No Hx Family Cancer: No Hx Family GI Disorders: No Hx Family Endocrine Disorder: Yes Hx Family Neuromuscular Disorders: No Hx Family Neurologic Disorders: No Hx Family HEENT Disorders: No Hx Family Autoimmune Disorders: No Mother Adopted: No Family Member Ethnicity: Non- Living Status: Hx Family Cardiac Disorders: Yes Hx Family Respiratory Disorders: Yes Hx Family Cancer: No Hx Family GI Disorders: No Hx Family Endocrine Disorder: Yes Hx Family Neuromuscular Disorders: No Hx Family Neurologic Disorders: No Hx Family HEENT Disorders: No Hx Family Autoimmune Disorders: No Internal Medicine - H&P: Meds Albuterol Sulfate [Ventolin Hfa] 2 puff IH BID 11/14/18 [History] Allopurinol [Zyloprim 300 MG] 300 mg PO DAILY 11/14/18 [History] BuPROPion [Wellbutrin] 100 mg PO DAILY 11/14/18 [History] Calcitriol 0.5 mcg PO BID 11/14/18 [History] Cilostazol [Pletal] 100 mg PO BID 11/14/18 [History] Clobetasol Propionate 0.05% [Temovate] 1 appl TP DAILY PRN 11/14/18 [History] Clopidogrel [Plavix] 75 mg PO DAILY 11/14/18 [History] Ezetimibe 10 mg PO DAILY 11/14/18 [History] Fluticasone/Vilanterol [Breo Ellipta 200-25 Mcg INH] 1 puff IH DAILY 11/14/18 [History] Furosemide [Lasix] 80 mg PO BID 11/14/18 [History] Ipratropium/Albuterol Neb [Duoneb] 3 ml IH Q6HR PRN 11/14/18 [History] Lovastatin 40 mg PO DAILY 11/14/18 [History] Multivit,Th Iron,Other Min [Therems-M] 1 tab PO DAILY 11/14/18 [History] Nitroglycerin [Nitrostat] 0.4 mg SL AD PRN 11/14/18 [History] Omeprazole [PriLOSEC] 20 mg PO DAILY 11/14/18 [History] Ranolazine [Ranexa] 500 mg PO BID 11/14/18 [History] Ropinirole HCl [Requip] 0.5 mg PO HS 11/14/18 [History] Isosorbide MONOnitrate (24 HR) [Imdur] 60 mg PO BID 01/11/19 [History] Magnesium Oxide [Mag-Ox] 400 mg PO DAILY #30 tablet 01/19/19 [Rx] Gabapentin [Neurontin] 800 mg PO 0800,1300,1800,2300 #120 capsule 01/23/19 [Rx] Metoprolol XL (24 HR) Succ [Toprol Xl] 25 mg PO DAILY tab.er.24h 01/23/19 [Rx] Metoprolol XL (24 HR) Succ [Toprol Xl] 25 mg PO DAILY #30 tab.er.24h 01/23/19 [Rx] Allergy/AdvReac Type Severity Reaction Status Date / Time doxycycline AdvReac Nausea Verified 01/11/19 07:29 esomeprazole [From Nexium] AdvReac Nausea Verified 01/11/19 07:29 All Systems PM: A 10-system review of systems was performed and is negative for pertinent findings except as documented above in the HPI. - Constitutional Constitutional: weakness, no chills, no fever(s) - EENT Eyes: no blurry vision, no irritation Nose, mouth and throat: no dental pain, no mouth pain - Cardiovascular Cardiovascular ROS IM: no chest pain, no edema, no palpitations - Respiratory Respiratory: no cough, no dyspnea, no wheezing - Gastrointestinal Gastrointestinal: diarrhea, dyspepsia, heartburn, nausea, no abdominal pain, no dysphagia, no vomiting - Genitourinary Genitourinary ROS male: dysuria, urinary frequency, urinary urgency - Musculoskeletal Musculoskeletal ROS IM: no back pain, no muscle weakness, no numbness - Integumentary Integumentary IM: no erythema, no rash - Neurological Neurological ROS: no headache(s), no tremor(s), no weakness - Psychiatric Psychiatric: no anxiety, no irritability - Endocrine Endocrine IM: no cold intolerance, no excessive sweating - Hematologic/Lymphatic Hematologic/Lymphatic: no lymphadenopathy - Allergic/Immunologic Allergic/Immunologic: no GI upset with certain foods - Constitutional Vitals: Temp Pulse Resp BP Pulse Ox 97.6 F 59 16 119/80 98 03/13/19 07:40 03/13/19 07:40 03/13/19 07:40 03/13/19 07:40 03/13/19 07:40 Exam: Vitals: Reviewed. General: Obese, Alert and oriented 4. In mild distress due to diarrhea. Skin: Normal color, no rash, no lesions. HEENT: dry oral mucus membrane, EOM, pupils equal, round and reactive. Cardiovascular: RRR, normal S1 & S2, no rubs, murmurs or gallops. Lungs: CTA b/l, no wheezes or crackles. Abdomen: Soft, non-tender, no rigidity. NABS in all 4 quadrants Extremities: No deformity, no edema or tenderness, no joint swelling or clubbing. Neurological: Normal cognition and motor skills. Rest of the physical exam is non contributory Internal Med - H&P Results - Labs CBC & Chem 7: 03/12/19 19:32 03/12/19 19:32 Labs: Short CBC 03/12/19 Range/Units 19:32 WBC 6.9 (4.3-11.1) K/mcL Hgb 15.1 (12.9-16.9) g/dL Hct 43.7 (37.5-50.1) % Plt Count 138 L (140-400) K/mcL Neutrophils # 4.0 (1.6-8.9) K/mcL BMP 03/12/19 19:32 Sodium 139 Potassium 2.5 L* Chloride 106 Carbon Dioxide 24 BUN 12 Creatinine 1.40 H Glucose 90 Calcium 10.4 H Liver Function 03/12/19 Range/Units 19:32 Total Bilirubin 0.8 (0.3-1.0) mg/dL Direct Bilirubin 0.2 (0.0-0.2) mg/dL AST 18 (13-39) Units/L ALT 14 (7-52) Units/L Alkaline Phosphatase 90 (34-104) Units/L Albumin 3.8 (3.5-5.7) g/dL - Impressions ITS Impressions Abdomen/Pelvis CT 03/12/19 21:09 IMPRESSION: 1. Although the absence of intraluminal contrast limits evaluation, there are findings which would indicate diffuse thickening of the colon from the transverse colon through the sigmoid colon with pericolonic stranding most apparent in the descending colon. Findings are highly suggestive of colitis likely infectious, in particular pseudomembranous colitis. 2. Bilateral renal cysts. D/ / Jassi Wilhelm MD / Jassi Wilhelm MD Interpreting Provider: Jassi Wilhelm MD - Assessment and Plan (1) Colitis Current Visit: Yes Status: Acute Assessment and plan: Patient report diarrhea for about 2o months worsened for the past week CT/CT abd pelvis wo no iv no oral IMPRESSION: 1. Although the absence of intraluminal contrast limits evaluation, there are findings which would indicate diffuse thickening of the colon from the transverse colon through the sigmoid colon with pericolonic stranding most apparent in the descending colon. Findings are highly suggestive of colitis likely infectious, in particular pseudomembranous colitis. 2. Bilateral renal cysts. Plan clear liquid diet, will advance as tolerated started on metronidazole and ciprofloxacin Stool panel to r/o C. diff patient completed 6 weeks of IV antibiotics 2 weeks ago. GI consulted, patient with diarrhea for 20 months, last colonoscopy 15 years ago. started on anti-emetics and PPIs for nausea and GERD like symptoms. (2) Dehydration Current Visit: Yes Status: Acute Assessment and plan: due to GI loss. reports diarrhea for the past 20 month, worsened last week. started on IV hydration. PO fluids intake encouraged (3) Hypokalemia Current Visit: Yes Status: Acute Assessment and plan: due to diarrhea. electrolyte being replaced. mag level ordered. (4) Morbid obesity with BMI of 40.0-44.9, adult Current Visit: No Status: Acute (5) Osteomyelitis of toe Current Visit: No Status: Chronic Assessment and plan: reported completing 6 weeks of IV antibiotics treatment 2 weeks ago. (6) CAD (coronary artery disease) Current Visit: No Status: Chronic Assessment and plan: Continue clopidogrel 75 mg by mouth daily. Qualifiers: Coronary Disease-Associated Artery/Lesion type: [place] artery [place] vs. transplanted heart: [place] heart Associated angina: without angina Qualified Code(s): I25.10 - Atherosclerotic heart disease of [place] coronary artery without angina pectoris (7) Chronic diarrhea Current Visit: No Status: Chronic Assessment and plan: Plan of care as per problem #1. (8) Hypertension Current Visit: No Status: Chronic Assessment and plan: We will continue home dose of isosorbide, and metoprolol. Hold furosemide due to possible JOSSE on CKD Qualifiers: Hypertension type: essential hypertension Qualified Code(s): I10 - Essential (primary) hypertension (9) PAD (peripheral artery disease) Current Visit: No Status: Chronic Assessment and plan: on Plavix. (10) CKD (chronic kidney disease) stage 3, GFR 30-59 ml/min Current Visit: No Status: Chronic Assessment and plan: with possible JOSSE due to dehydration secondary to diarrhea. started on IV fluids. will re-assess kidney function tomorrow morning. (11) COPD (chronic obstructive pulmonary disease) Current Visit: No Status: Chronic Assessment and plan: No wheezing, not on acute exacerbation. Bronchodilators every 4 hours when necessary. Qualifiers: COPD type: chronic bronchitis Chronic bronchitis type: unspecified Qualified Code(s): J42 - Unspecified chronic bronchitis - Time Spent With Patient Total time spent is greater than 50% in coordination of care (as documented) at patient's floor/unit and/or counseling patient: Greater than 35 minutes (40)
[2019-03-13] MEDS: Isosorbide MONOnitrate (24 HR) 60 MG TAB.ER.24H PO SCH (09:21)
[2019-03-13] MEDS: Metoprolol XL (24 HR) Succ 25 MG TAB.ER.24H PO SCH (09:21)
[2019-03-13] MEDS: MetroNIDAZOLE 500 MG/100 ML 500 MG/100 ML BAG IVPB SCH ×2 (09:25→17:26)
[2019-03-13 10:14] LABS: BUN/Creatinine Ratio 9 (6-26); Blood Urea Nitrogen 12 mg/dL (8-23); Calcium 10.2 mg/dL (8.6-10.3); Carbon Dioxide 27 mEq/L (23-29); Chloride 108 mEq/L (98-107); Glucose 99 mg/dL (70-105); Magnesium 1.3 mg/dL (1.6-2.6); Osmolality,Calculated 296 (280-300); Phosphorous 2.5 mg/dL (2.7-4.5); Potassium 2.9 mEq/L (3.5-5.1); Sodium 143 mEq/L (136-145); eGFR For Non-African Americans 55 (> 60)
--- NOTE | 2019-03-13 12:59 | Gastroenterology Consult Note ---
<Maco Crespo Fany - Last Filed: 03/13/19 12:57> Date of Encounter: 03/13/19 Time of Encounter: 11:10 - Assessment and plan (1) Chronic diarrhea Status: Chronic Assessment and plan: CT A/P shows diffuse thickening of the colon from transverse through sigmoid with pericolonic stranding most apparent in the descending colonhighly suggestive of colitis likely infectious, in particular pseudomembranous colitis. C.Diff PCR pending. Continue antibiotics. Start Lactobacillus twice a day and Questran 4 g twice a day. Plan for colonoscopy in 6-8 weeks as outpatient. (2) Colitis Status: Acute Assessment and plan: As above. (3) Hypokalemia Status: Acute Assessment and plan: Replete per primary team. - Time Spent With Patient Total time spent is greater than 50% in coordination of care (as documented) at patient's floor/unit and/or counseling patient: GI History of Present Illness - Data of Consult Patient: new to practice Consult date: 03/13/19 Requesting Physician: Royer Shepard MD - Consult Narrative Reason for consult: Chronic diarrhea History of present illness: Mr. Baez is a 64 year old male with PMHx of CHF, COPD, CAD s/p CABG, DVT, HLD, HTN, and osteomyelitis of the left foot (recently completed 6 weeks IV antibiotics). Patient presented to the ED with c/o diarrhea, nausea, and vomiting. He reports having 6-8 episodes of watery, yellow diarrhe per day. He has been having diarrhea for the past 2 years, but symptoms have worsened over the past week. CT A/P shows diffuse thickening of the colon from transverse through sigmoid with pericolonic stranding most apparent in the descending colonhighly suggestive of colitis likely infectious, in particular pseudomembranous colitis. He states that he has had diarrhea for some time and is supposed to be scheduled for colonoscopy soon, but his primary care physician "forgot" to do that. He does complain of nausea and dry heaves which worsens with eating. He denies fevers, chills, chest pain, shortness of breath. He reports "crampy" abdominal pain that started about one week ago. Procedures: Colonoscopy 15 years ago per patient report. NSAIDs: None Anticoagulation: Plavix, Pletal Past Med Surg Social Fam HX - Past Medical History Medical history: CHF, COPD, coronary artery disease, DVT, hyperlipidemia, hypert ension, peripheral artery disease, renal disease Additional medical history: Polyneuropathy Psychiatric history: anxiety, depression - Past Surgical History Surgical History: cataract Additional surgical history: LEft CEA, Triple vessel CABG, Cholecystectomy, Tonsillectomy, cataract removal, I/D left foot 02/21/2018 - Social History Smoking Status: Former smoker Smokeless Tobacco Status: No Alcohol use: none Drug use: none - Family History Father Adopted: No Family Member Ethnicity: Non- Living Status: Still Living Hx Family Cardiac Disorders: Yes Hx Family Respiratory Disorders: No Hx Family Cancer: No Hx Family GI Disorders: No Hx Family Endocrine Disorder: Yes Hx Family Neuromuscular Disorders: No Hx Family Neurologic Disorders: No Hx Family HEENT Disorders: No Hx Family Autoimmune Disorders: No Mother Adopted: No Family Member Ethnicity: Non- Living Status: Hx Family Cardiac Disorders: Yes Hx Family Respiratory Disorders: Yes Hx Family Cancer: No Hx Family GI Disorders: No Hx Family Endocrine Disorder: Yes Hx Family Neuromuscular Disorders: No Hx Family Neurologic Disorders: No Hx Family HEENT Disorders: No Hx Family Autoimmune Disorders: No - Gastrointestinal Gastrointestinal: Present: as per HPI - Constitutional Constitutional: as per HPI - EENT Eyes: as per HPI Ears: Present: as per HPI Nose, mouth and throat: Present: as per HPI - Cardiovascular Cardiovascular ROS: Present: as per HPI - Respiratory Respiratory IM: Present: as per HPI - Genitourinary Genitourinary: Absent: change in color, Urinary frequency - Neurological ROS Neurological GI: Present: as per HPI - Hematologic/Lymphatic Hematologic/Lymphatic pediatric: Present: as per HPI - Musculoskeletal Musculoskeletal ROS GI: Present: as per HPI - Integumentary Integumentary GI: Present: as per HPI - Psychiatric ROS Psychiatric GI: Present: as per HPI - Endocrine Endocrine IM: Present: as per HPI - Constitutional Vitals: Temp Pulse Resp BP Pulse Ox 97.4 F L 58 16 102/68 97 03/13/19 11:44 03/13/19 11:44 03/13/19 11:44 03/13/19 11:44 03/13/19 11:44 General appearance: Present: cooperative, A&O X 3, no acute distress, answers questions appropriately - Head Head exam: Present: atraumatic, normocephalic - Eye Eye exam: Present: normal appearance, sclera anicteric - ENT ENT exam: Present: mucous membranes moist - Neck Neck exam general surgery: Present: normal inspection, trachea midline - Respiratory Respiratory exam: Present: CTAB. Absent: rales, rhonchi - Cardiovascular Cardiovascular exam: Present: RRR, +S1, +S2 - GI/Abdominal GI/Abdominal exam: Present: soft, no peritoneal signs. Absent: distended, firm, guarding, tenderness - Rectal Rectal exam: Present: deferred - Extremities Exam Extremities exam: Present: warm - Neurological Exam Neurological exam: Present: no focal deficits - Psychiatric Psychiatric exam: Present: normal affect, normal mood - Skin Skin exam: Present: dry, intact, normal color, warm Results - Labs CBC & Chem 7: 03/12/19 19:32 03/13/19 09:15 Labs: Last Result 03/13/19 09:15 Calcium 10.2 - Impressions Impressions Abdomen/Pelvis CT 03/12/19 21:09 IMPRESSION: 1. Although the absence of intraluminal contrast limits evaluation, there are findings which would indicate diffuse thickening of the colon from the transverse colon through the sigmoid colon with pericolonic stranding most apparent in the descending colon. Findings are highly suggestive of colitis likely infectious, in particular pseudomembranous colitis. 2. Bilateral renal cysts. D/ / Jassi Wilhelm MD / Jassi Wilhelm MD Interpreting Provider: Jassi Wilhelm MD Consult Discharge Plan - Plan Instructions: Clostridium Difficile Infection (DC) Referrals: Neli Hoover CNP [Primary Care Provider] - 03/21/19 1:00 pm Prescriptions: Lactobacillus [Culturelle] 1 each PO BID 30 Days #60 cap.sprink Vancomycin HCl 125 mg PO QID 10 Days #40 cap <Kang Lizarraga - Last Filed: 03/19/19 05:44> Date of Encounter: 03/13/19 - Time Spent With Patient Total time spent is greater than 50% in coordination of care (as documented) at patient's floor/unit and/or counseling patient: GI History of Present Illness - Data of Consult Requesting Physician: Royer Shepard MD - Consult Narrative History of present illness: Mr. Baez is a 64 year old male - Constitutional Vitals: Temp Pulse Resp BP Pulse Ox 97.4 F L 59 16 95/60 96 03/14/19 11:32 03/14/19 11:32 03/14/19 11:32 03/14/19 11:32 03/14/19 11:32 Results - Labs CBC & Chem 7: 03/14/19 06:54 03/14/19 08:57 - Attending Attestation I have personally performed a face to face evaluation on this patient. I have reviewed and agree with the care plan. History and Exam by me shows:
[2019-03-13 15:14] LABS: Bilirubin,Urine Negative (Negative); Blood,Urine Negative (Negative); Clarity,Urine Clear (Clear); Color,Urine Yellow (Yellow); Glucose,Urine (UA) Normal (Normal); Ketones,Urine Negative (Negative); Leukocyte Esterase,Urine Negative (Negative); Nitrite,Urine Negative (Negative); Protein,Urine 30 mg/dL (Neg-Trace); Urobilinogen,Urine Normal (Normal)
[2019-03-13 15:16] LABS: Bacteria,Urine None Seen per hpf (None-Few); Hyaline Casts,Urine None Seen per lpf (None-Few); RBC,Urine 0-3 per hpf (0-3); Squamous Epithelial Cell,Urine Many per lpf (None-Few); WBC,Urine 0-3 per hpf (0-3)
[2019-03-13] MEDS: Cholestyramine 4 GM POWD.PACK PO SCH (17:27)
[2019-03-13] MEDS: *HR* Heparin 5,000 UNIT/ML VIAL SQ SCH (17:27)
[2019-03-13] MEDS: Lactobacillus 1 EACH CAP.SPRINK PO SCH (20:27)
[2019-03-13] MEDS ORDERED: Acetaminophen IV 1,000 MG/100 ML INFUS..BTL IVPB ONE (23:14)
[2019-03-13] MEDS ORDERED: Melatonin 3 MG TABLET PO PRN (23:15)
[2019-03-14] MEDS: MetroNIDAZOLE 500 MG/100 ML 500 MG/100 ML BAG IVPB SCH ×2 (00:20→08:00)
[2019-03-14] MEDS: 0.9 % Sodium Chloride w KCl 20 MEQ/1,000 ML MLS IVC SCH (00:37)
[2019-03-14] MEDS ORDERED: Gabapentin 400 MG CAPSULE PO ONE (05:03)
[2019-03-14] MEDS: *HR* Heparin 5,000 UNIT/ML VIAL SQ SCH (05:11)
[2019-03-14] MEDS: Lactobacillus 1 EACH CAP.SPRINK PO SCH (08:00)
[2019-03-14] MEDS: Isosorbide MONOnitrate (24 HR) 60 MG TAB.ER.24H PO SCH (08:00)
[2019-03-14] MEDS: Cholestyramine 4 GM POWD.PACK PO SCH (08:00)
[2019-03-14] MEDS: Metoprolol XL (24 HR) Succ 25 MG TAB.ER.24H PO SCH (08:01)
[2019-03-14 08:03] LABS: Basophils % 0.4 %; Eosinophils # 0.4 K/mcL (0.0-0.6); Eosinophils % 6.9 %; Hematocrit 40.6 % (37.5-50.1); Immature Granulocytes % 0.2 % (0-4); Lymphocytes # 1.7 K/mcL (0.6-4.6); Lymphocytes % 33.1 %; Mean Corpuscular HGB Conc 33.3 g/dL (31.6-35.5); Mean Corpuscular Volume 102.3 fL (83.0-100.0); Mean Platelet Volume 9.9 fL (9.4-12.4); Monocytes # 0.6 K/mcL (0.0-1.3); Monocytes % 10.5 %; Neutrophils # 2.6 K/mcL (1.6-8.9); Platelet Count 120 K/mcL (140-400); Red Blood Count 3.97 M/mcL (4.19-5.50); Red Cell Distribution Width 13.5 % (11.5-14.5); Segmented Neutrophils % 48.9 %
[2019-03-14 08:14] LABS: Hemoglobin 13.5 g/dL (12.9-16.9)
[2019-03-14] MEDS ORDERED: Gabapentin 400 MG CAPSULE PO SCH (09:00)
[2019-03-14] MEDS ORDERED: Ranolazine 500 MG TAB.ER.12H PO SCH (09:00)
--- NOTE | 2019-03-14 09:06 | Discharge Summary ---
Orders not resulted at time of discharge: Pending orders 03/14/19 07:35 BMP [Basic Metabolic Panel] Stat Date of Encounter: 03/14/19 Time of Encounter: 09:03 - Discharge Diagnosis (1) C. difficile colitis Priority: Primary Status: Acute (2) Colitis Priority: Primary Status: Acute (3) Dehydration Priority: Secondary Status: Resolved (4) Hypokalemia Priority: Secondary Status: Acute (5) Morbid obesity with BMI of 40.0-44.9, adult Priority: Secondary Status: Acute (6) Osteomyelitis of toe Priority: Secondary Status: Chronic (7) CAD (coronary artery disease) Priority: Secondary Status: Chronic Qualifiers: Coronary Disease-Associated Artery/Lesion type: [place] artery [place] vs. transplanted heart: [place] heart Associated angina: without angina Qualified Code(s): I25.10 - Atherosclerotic heart disease of [place] coronary artery without angina pectoris (8) Chronic diarrhea Priority: Secondary Status: Chronic (9) Hypertension Priority: Secondary Status: Chronic Qualifiers: Hypertension type: essential hypertension Qualified Code(s): I10 - Essential (primary) hypertension (10) PAD (peripheral artery disease) Priority: Secondary Status: Chronic (11) CKD (chronic kidney disease) stage 3, GFR 30-59 ml/min Priority: Secondary Status: Chronic (12) COPD (chronic obstructive pulmonary disease) Priority: Secondary Status: Chronic Qualifiers: COPD type: chronic bronchitis Chronic bronchitis type: unspecified Qualified Code(s): J42 - Unspecified chronic bronchitis Hospital course: Mr. Baez is a 64 year old male PMH of HTN, CKD, CHF, CAD s/p CABG in 2002, COPD and osteomyelitis of the left foot. patient presented to the ED due to diarrhea, nausea and vomiting. Patient reported completing weeks of IV antibiotics [address]/CT abd pelvis wo no iv no oral IMPRESSION: 1. Although the absence of intraluminal contrast limits evaluation, there are findings which would indicate diffuse thickening of the colon from the transverse colon through the sigmoid colon with pericolonic stranding most apparent in the descending colon. Findings are highly suggestive of colitis likely infectious, in particular pseudomembranous colitis. 2. Bilateral renal cysts. Patient was admitted to the hospital due to colitis, dehydration and hyponatremia. Patient tested positive for C.diff. Patient reports he had only had one bowel movement for the past 48 hours. He is hemodynamically stable to be discharged home on oral vancomycin, to complete 10 days. Recommended to follow-up with a food service employee as an outpatient for a colonoscopy 4-6 weeks after completion of treatment. - Time Spent with Patient Total time spent providing and/or coordinating discharge services: Time spent: Greater than 30 minutes (40) - Discharge Medications Prescriptions: New Lactobacillus [Culturelle] 1 each PO BID 30 Days #60 cap.sprink Vancomycin HCl 125 mg PO QID 10 Days #40 cap Continued Ropinirole HCl [Requip] 0.5 mg PO HS Clopidogrel [Plavix] 75 mg PO DAILY Multivit,Th Iron,Other Min [Therems-M] 1 tab PO DAILY Clobetasol Propionate 0.05% [Temovate] 1 appl TP DAILY PRN PRN Reason: LEG IRRITATION Lovastatin 40 mg PO DAILY Omeprazole [PriLOSEC] 20 mg PO DAILY Ipratropium/Albuterol Neb [Duoneb] 3 ml IH Q6HR PRN PRN Reason: Shortness Of Breath Furosemide [Lasix] 80 mg PO BID Cilostazol [Pletal] 100 mg PO BID Calcitriol 0.5 mcg PO BID BuPROPion [Wellbutrin] 100 mg PO DAILY Allopurinol [Zyloprim 300 MG] 300 mg PO DAILY Ezetimibe 10 mg PO DAILY Nitroglycerin [Nitrostat] 0.4 mg SL AD PRN PRN Reason: Chest Pain Albuterol Sulfate [Ventolin Hfa] 2 puff IH BID Fluticasone/Vilanterol [Breo Ellipta 200-25 Mcg INH] 1 puff IH DAILY Ranolazine [Ranexa] 500 mg PO BID Isosorbide MONOnitrate (24 HR) [Imdur] 60 mg PO BID Magnesium Oxide [Mag-Ox] 400 mg PO DAILY #30 tablet Metoprolol XL (24 HR) Succ [Toprol Xl] 25 mg PO DAILY #30 tab.er.24h Gabapentin [Neurontin] 800 mg PO 0800,1300,1800,2300 #120 capsule Home Medications: Albuterol Sulfate [Ventolin Hfa] 2 puff IH BID 11/14/18 [History] Allopurinol [Zyloprim 300 MG] 300 mg PO DAILY 11/14/18 [History] BuPROPion [Wellbutrin] 100 mg PO DAILY 11/14/18 [History] Calcitriol 0.5 mcg PO BID 11/14/18 [History] Cilostazol [Pletal] 100 mg PO BID 11/14/18 [History] Clobetasol Propionate 0.05% [Temovate] 1 appl TP DAILY PRN 11/14/18 [History] Clopidogrel [Plavix] 75 mg PO DAILY 11/14/18 [History] Ezetimibe 10 mg PO DAILY 11/14/18 [History] Fluticasone/Vilanterol [Breo Ellipta 200-25 Mcg INH] 1 puff IH DAILY 11/14/18 [History] Furosemide [Lasix] 80 mg PO BID 11/14/18 [History] Ipratropium/Albuterol Neb [Duoneb] 3 ml IH Q6HR PRN 11/14/18 [History] Lovastatin 40 mg PO DAILY 11/14/18 [History] Multivit,Th Iron,Other Min [Therems-M] 1 tab PO DAILY 11/14/18 [History] Nitroglycerin [Nitrostat] 0.4 mg SL AD PRN 11/14/18 [History] Omeprazole [PriLOSEC] 20 mg PO DAILY 11/14/18 [History] Ranolazine [Ranexa] 500 mg PO BID 11/14/18 [History] Ropinirole HCl [Requip] 0.5 mg PO HS 11/14/18 [History] Isosorbide MONOnitrate (24 HR) [Imdur] 60 mg PO BID 01/11/19 [History] Magnesium Oxide [Mag-Ox] 400 mg PO DAILY #30 tablet 01/19/19 [Rx] Gabapentin [Neurontin] 800 mg PO 0800,1300,1800,2300 #120 capsule 01/23/19 [Rx] Metoprolol XL (24 HR) Succ [Toprol Xl] 25 mg PO DAILY #30 tab.er.24h 01/23/19 [Rx] Lactobacillus [Culturelle] 1 each PO BID 30 Days #60 cap.sprink 03/14/19 [Rx] Vancomycin HCl 125 mg PO QID 10 Days #40 cap 03/14/19 [Rx] Allergies/Adverse Reactions: Allergy/AdvReac Type Severity Reaction Status Date / Time doxycycline AdvReac Nausea Verified 01/11/19 07:29 esomeprazole [From Nexium] AdvReac Nausea Verified 01/11/19 07:29 Date of admission: 03/13/19 00:47 Primary care physician: Neli Hoover CNP Consults: 03/13/19 02:00 Consult to County Sheriff [CONS] Routine Reason for SW Consult: patient states he would liek some home health when he gets discharged, possbily needs some rehab for strength building 03/13/19 08:48 Consult to Gastroenterology [CONS] Routine Consulting Provider: Gastroenterology [facility] Reason for Consult: chronic diarrhea Call Completed: No - Constitutional Vitals: Temp Pulse Resp BP Pulse Ox 98.2 F 53 16 120/73 96 03/14/19 07:40 03/14/19 07:40 03/14/19 07:40 03/14/19 07:40 03/14/19 07:40 Exam: Vitals: Reviewed. General: Obese, Alert and oriented 4. In no acute distress HEENT: Mucous membranes moist, EOM, pupils equal, round and reactive. Cardiovascular: RRR, normal S1 & S2, no rubs, murmurs or gallops. Lungs: CTA b/l, no wheezes or crackles. Abdomen: Soft, non-tender, no rigidity. NABS in all 4 quadrants Extremities: No known edema Neurological: No focal neurological deficit. Rest of the physical exam is non contributory - Patient Status Disposition: Home, Self-Care Condition: Good Functional capacity at discharge: independent ambulation Overall status at discharge: patient is back to baseline - Discharge Instructions Follow Up With: Neli Hoover CNP [Primary Care Provider] - - Diet and Activity Activity: resume usual activities as tolerated Diet: low salt diet
--- NOTE | 2019-03-14 09:29 | Physician Discharge Referral ---
Home Health/Hosp Referral Info Transfer to: Home Health - Diagnosis (1) C. difficile colitis Priority: Primary Status: Acute (2) Colitis Priority: Secondary Status: Acute (3) Dehydration Priority: Secondary Status: Resolved (4) Hypokalemia Priority: Secondary Status: Acute (5) Morbid obesity with BMI of 40.0-44.9, adult Priority: Secondary Status: Acute (6) Osteomyelitis of toe Priority: Secondary Status: Chronic (7) CAD (coronary artery disease) Priority: Secondary Status: Chronic (8) Chronic diarrhea Priority: Secondary Status: Chronic (9) Hypertension Priority: Secondary Status: Chronic (10) PAD (peripheral artery disease) Priority: Secondary Status: Chronic (11) CKD (chronic kidney disease) stage 3, GFR 30-59 ml/min Priority: Secondary Status: Chronic (12) COPD (chronic obstructive pulmonary disease) Priority: Secondary Status: Chronic - Respiratory Orders Smoking Cessation: Smoking cessation has been advised. For more information, call the [facility] Quit Line at 5-976-PQAY-NOW. - Diet/Nutrition Diet/Nutrition Orders: Regular - Services Needed Following services are medically necessary services: Nursing, Home Health Aide, Physical Therapy, Occupational Therapy - Transfer Medications Prescriptions: Lactobacillus [Culturelle] 1 each PO BID 30 Days #60 cap.sprink Vancomycin HCl 125 mg PO QID 10 Days #40 cap Home Medications: Albuterol Sulfate [Ventolin Hfa] 2 puff IH BID 11/14/18 [History] Allopurinol [Zyloprim 300 MG] 300 mg PO DAILY 11/14/18 [History] BuPROPion [Wellbutrin] 100 mg PO DAILY 11/14/18 [History] Calcitriol 0.5 mcg PO BID 11/14/18 [History] Cilostazol [Pletal] 100 mg PO BID 11/14/18 [History] Clobetasol Propionate 0.05% [Temovate] 1 appl TP DAILY PRN 11/14/18 [History] Clopidogrel [Plavix] 75 mg PO DAILY 11/14/18 [History] Ezetimibe 10 mg PO DAILY 11/14/18 [History] Fluticasone/Vilanterol [Breo Ellipta 200-25 Mcg INH] 1 puff IH DAILY 11/14/18 [History] Furosemide [Lasix] 80 mg PO BID 11/14/18 [History] Ipratropium/Albuterol Neb [Duoneb] 3 ml IH Q6HR PRN 11/14/18 [History] Lovastatin 40 mg PO DAILY 11/14/18 [History] Multivit,Th Iron,Other Min [Therems-M] 1 tab PO DAILY 11/14/18 [History] Nitroglycerin [Nitrostat] 0.4 mg SL AD PRN 11/14/18 [History] Omeprazole [PriLOSEC] 20 mg PO DAILY 11/14/18 [History] Ranolazine [Ranexa] 500 mg PO BID 11/14/18 [History] Ropinirole HCl [Requip] 0.5 mg PO HS 11/14/18 [History] Isosorbide MONOnitrate (24 HR) [Imdur] 60 mg PO BID 01/11/19 [History] Magnesium Oxide [Mag-Ox] 400 mg PO DAILY #30 tablet 01/19/19 [Rx] Gabapentin [Neurontin] 800 mg PO 0800,1300,1800,2300 #120 capsule 01/23/19 [Rx] Metoprolol XL (24 HR) Succ [Toprol Xl] 25 mg PO DAILY #30 tab.er.24h 01/23/19 [Rx] Lactobacillus [Culturelle] 1 each PO BID 30 Days #60 cap.sprink 03/14/19 [Rx] Vancomycin HCl 125 mg PO QID 10 Days #40 cap 03/14/19 [Rx] Allergies/Adverse Reactions: Allergy/AdvReac Type Severity Reaction Status Date / Time doxycycline AdvReac Nausea Verified 01/11/19 07:29 esomeprazole [From Nexium] AdvReac Nausea Verified 01/11/19 07:29 Certification: Further, I certify that my clinical findings support that this patient is homebound (i.e. absences from home require considerable and taxing effort and are for medical reasons or yazidism services or infrequently or short duration when for other reasons) because: Homebound Reason: Patient requires assistance of a person or device to safely leave home Attestation: My signature below is to certify that this patient is under my care and that I, or nurse practitioner, or a physician's automotive parts counter assistant working with me, has a [id number] encounter with this patient.
[2019-03-14 09:30] LABS: BUN/Creatinine Ratio 9 (6-26); Blood Urea Nitrogen 11 mg/dL (8-23); Calcium 8.9 mg/dL (8.6-10.3); Carbon Dioxide 21 mEq/L (23-29); Chloride 115 mEq/L (98-107); Glucose 92 mg/dL (70-105); Osmolality,Calculated 289 (280-300); Potassium 3.3 mEq/L (3.5-5.1); Sodium 140 mEq/L (136-145); eGFR For Non-African Americans 59 (> 60)
[2019-03-14 11:39] VITALS: BP 95/60
== END 2019-03-14 14:08 | disposition home or self-care (01) ==
LOC: EMEROOARM 17:35 → 3ANU 17:35
PROVIDERS: ADMIT Pediatrics; ATTEND Pediatrics

== ENCOUNTER 2020-09-25 11:15 | Inpatient (IN) ==
[2020-09-25 12:05] LABS: Basophils % 0.3 %; Eosinophils # 0.1 K/mcL (0.0-0.6); Eosinophils % 1.3 %; Hematocrit 48.3 % (37.5-50.1); Hemoglobin 16.8 g/dL (12.9-16.9); Immature Granulocytes % 0.4 % (0-4); Lymphocytes # 1.8 K/mcL (0.6-4.6); Lymphocytes % 17.1 %; Mean Corpuscular HGB Conc 34.8 g/dL (31.6-35.5); Mean Corpuscular Hemoglobin 35.4 pg (28.0-33.3); Mean Corpuscular Volume 101.9 fL (83.0-100.0); Mean Platelet Volume 9.5 fL (9.4-12.4); Monocytes # 1.1 K/mcL (0.0-1.3); Monocytes % 10.6 %; Neutrophils # 7.5 K/mcL (1.6-8.9); Platelet Count 155 K/mcL (140-400); Red Blood Count 4.74 M/mcL (4.19-5.50); Red Cell Distribution Width 13.6 % (11.5-14.5); Segmented Neutrophils % 70.3 %; White Blood Count 10.6 K/mcL (4.3-11.1)
[2020-09-25 12:09] LABS: INR 1.1; Prothrombin Time 12.7 Seconds (9.4-12.1)
[2020-09-25] MEDS ORDERED: Aspirin 325 MG TABLET PO ONE (12:12)
[2020-09-25 12:28] LABS: Albumin 3.8 g/dL (3.5-5.7); Albumin/Globulin Ratio 1.2 (1.1-2.2); Bilirubin,Total 0.6 mg/dL (0.3-1.0); Calcium 9.6 mg/dL (8.6-10.3); Globulin 3.1 g/dL (2.4-3.5); Potassium 4.6 mEq/L (3.5-5.1); Total Protein 6.9 g/dL (6.4-8.9); Troponin I 0.42 ng/mL (< 0.04)
[2020-09-25] MEDS ORDERED: *HR* Heparin 5,000 UNIT/ML VIAL IVP ONE (12:30)
[2020-09-25] MEDS ORDERED: *HR* Heparin 5,000 UNIT/ML VIAL IVP PRN ×2 (12:30)
[2020-09-25 12:33] LABS: Activated Partial Thrombo Time 32.8 Seconds (26.0-36.0)
[2020-09-25] MEDS ORDERED: Naloxone 0.4 MG/ML INJ IVP PRN (12:55)
[2020-09-25] MEDS: Heparin 25,000UNIT/250ML 1/2NS 25,000 UNIT/250 ML IV.SOLN IVC SCH (13:00)
[2020-09-25] MEDS ORDERED: *HR* Labetalol 20 MG/4 ML SYRINGE IVP ONE (13:04)
[2020-09-25] MEDS ORDERED: Perflutren Lipid Microsphere 1.3 ML in 0.9 % Sodium Chloride 8.7 ML IVP PRN (13:53)
[2020-09-25] MEDS: Metoprolol XL (24 HR) Succ 50 MG TAB.ER.24H PO SCH (14:59)
[2020-09-25] MEDS: 0.9 % Sodium Chloride 1,000 ML IVC SCH (15:00)
[2020-09-25] MEDS ORDERED: Ipratropium/Albuterol Neb 3 ML IH PRN (16:01)
[2020-09-25] MEDS: NIFEdipine XL (24 HR) 30 MG TAB.ER.24 PO SCH (17:16)
[2020-09-25] MEDS: Nicotine 21 MG PATCH.TD24 TD SCH (17:16)
[2020-09-25] MEDS: Aspirin Enteric Coated 81 MG Tablet PO SCH (17:16)
[2020-09-25 17:46] LABS: Calcium 9.8 mg/dL (8.6-10.3); Potassium 4.4 mEq/L (3.5-5.1)
[2020-09-25 20:46] LABS: Adenovirus Not Detected (Not Detect); Bordetella Pertussis Not Detected (Not Detect); Chlamydophila pneumoniae Not Detected (Not Detect); Coronavirus 229E Not Detected (Not Detect); Coronavirus HKU1 Not Detected (Not Detect); Coronavirus NL63 Not Detected (Not Detect); Coronavirus OC43 Not Detected (Not Detect); Human Metapneumovirus Not Detected (Not Detect); Human Rhinovirus/Enterovirus Not Detected (Not Detect); Influenza A Subtype 2009 H1 Not Detected (Not Detect); Influenza B Not Detected (Not Detect); Mycoplasma pneumoniae Not Detected (Not Detect); Parainfluenza Virus 1 Not Detected (Not Detect); Parainfluenza Virus 2 Not Detected (Not Detect); Parainfluenza Virus 3 Not Detected (Not Detect); Parainfluenza Virus 4 Not Detected (Not Detect); Respiratory Syncytial Virus Not Detected (Not Detect); SARS-CoV-2 Not Detected (Not Detect)
[2020-09-26] LABS: Sodium, Urine 33.3 mEq/L
[2020-09-26] MEDS: Nitroglycerin 0.4 MG TAB.SUBL SL PRN ×2 (00:02→00:15)
[2020-09-26] MEDS: Heparin 25,000UNIT/250ML 1/2NS 25,000 UNIT/250 ML IV.SOLN IVC SCH (04:21)
[2020-09-26] MEDS: 0.9 % Sodium Chloride 1,000 ML IVC SCH ×2 (04:21→20:08)
[2020-09-26 06:40] LABS: Basophils % 0.4 %; Eosinophils # 0.4 K/mcL (0.0-0.6); Eosinophils % 4.1 %; Hematocrit 45.8 % (37.5-50.1); Hemoglobin 15.6 g/dL (12.9-16.9); Immature Granulocytes % 0.8 % (0-4); Lymphocytes # 2.8 K/mcL (0.6-4.6); Lymphocytes % 28.4 %; Mean Corpuscular HGB Conc 34.1 g/dL (31.6-35.5); Mean Corpuscular Hemoglobin 34.2 pg (28.0-33.3); Mean Corpuscular Volume 100.4 fL (83.0-100.0); Mean Platelet Volume 9.8 fL (9.4-12.4); Monocytes # 0.9 K/mcL (0.0-1.3); Neutrophils # 5.6 K/mcL (1.6-8.9); Platelet Count 126 K/mcL (140-400); Red Blood Count 4.56 M/mcL (4.19-5.50); Red Cell Distribution Width 13.3 % (11.5-14.5); Segmented Neutrophils % 57.3 %; White Blood Count 9.7 K/mcL (4.3-11.1)
[2020-09-26 06:50] LABS: Calcium 8.8 mg/dL (8.6-10.3); Chol/HDL Ratio 3.3 (0-4.9); Magnesium 2.1 mg/dL (1.6-2.6); Phosphorous 3.4 mg/dL (2.7-4.5); Potassium 4.8 mEq/L (3.5-5.1)
[2020-09-26 09:01] LABS: Estimated Average Glucose 120 mg/dl
[2020-09-26] MEDS: Nicotine 21 MG PATCH.TD24 TD SCH (09:25)
[2020-09-26] MEDS: NIFEdipine XL (24 HR) 30 MG TAB.ER.24 PO SCH (09:25)
[2020-09-26] MEDS: Aspirin Enteric Coated 81 MG Tablet PO SCH (09:25)
[2020-09-26] MEDS: Metoprolol XL (24 HR) Succ 50 MG TAB.ER.24H PO SCH (09:25)
[2020-09-26] MEDS: Pantoprazole 40 MG VIAL IVP SCH (09:25)
[2020-09-26] MEDS ORDERED: E-Z-PAQUE (BARIUM SULF) SUSP 1 BOTTLE PO ONE (15:50)
[2020-09-26] MEDS ORDERED: Ipratropium/Albuterol Neb 3 ML IH PRN (16:19)
[2020-09-26] MEDS ORDERED: Nitroglycerin 0.4 MG TAB.SUBL SL PRN (16:19)
[2020-09-26] MEDS: Furosemide 40 MG TABLET PO SCH (17:57)
[2020-09-26] MEDS: Gabapentin 400 MG CAPSULE PO SCH ×2 (17:57→20:07)
[2020-09-26] MEDS: calcitrioL 0.25 MCG CAPSULE PO SCH (20:07)
[2020-09-26] MEDS: Famotidine 20 MG TABLET PO SCH (20:07)
[2020-09-26] MEDS: rOPINIRole 1 MG TABLET PO SCH (20:07)
[2020-09-26] MEDS: Isosorbide MONOnitrate (24 HR) 60 MG TAB.ER.24H PO SCH (20:07)
[2020-09-26] MEDS: Ranolazine 500 MG TAB.ER.12H PO SCH (20:07)
[2020-09-26] MEDS ORDERED: Ranolazine 500 MG TAB.ER.12H PO SCH (21:00)
[2020-09-26] MEDS ORDERED: Isosorbide MONOnitrate (24 HR) 60 MG TAB.ER.24H PO SCH (21:00)
[2020-09-27] MEDS: Heparin 25,000UNIT/250ML 1/2NS 25,000 UNIT/250 ML IV.SOLN IVC SCH ×2 (03:24→20:46)
[2020-09-27] MEDS: allopurinoL 300 MG TABLET PO SCH (08:33)
[2020-09-27] MEDS: NIFEdipine XL (24 HR) 30 MG TAB.ER.24 PO SCH (08:33)
[2020-09-27] MEDS: Isosorbide MONOnitrate (24 HR) 60 MG TAB.ER.24H PO SCH ×2 (08:33→20:18)
[2020-09-27] MEDS: Multivit/Ca/Min/Fe/FA 1 TAB TABLET PO SCH (08:33)
[2020-09-27] MEDS: Furosemide 40 MG TABLET PO SCH ×2 (08:33→16:23)
[2020-09-27] MEDS: calcitrioL 0.25 MCG CAPSULE PO SCH ×2 (08:33→20:18)
[2020-09-27] MEDS: Gabapentin 400 MG CAPSULE PO SCH ×4 (08:34→20:18)
[2020-09-27] MEDS: Ranolazine 500 MG TAB.ER.12H PO SCH ×2 (08:34→20:18)
[2020-09-27] MEDS: Nicotine 21 MG PATCH.TD24 TD SCH (08:34)
[2020-09-27] MEDS: Metoprolol XL (24 HR) Succ 50 MG TAB.ER.24H PO SCH (08:34)
[2020-09-27] MEDS: Pantoprazole 40 MG VIAL IVP SCH (08:35)
[2020-09-27] MEDS: Aspirin Enteric Coated 81 MG Tablet PO SCH (08:35)
[2020-09-27 08:39] LABS: Hemoglobin 14.5 g/dL (12.9-16.9); Mean Corpuscular HGB Conc 32.2 g/dL (31.6-35.5); Mean Corpuscular Hemoglobin 33.6 pg (28.0-33.3); Mean Corpuscular Volume 104.4 fL (83.0-100.0); Mean Platelet Volume 9.5 fL (9.4-12.4); Platelet Count 141 K/mcL (140-400); Red Blood Count 4.31 M/mcL (4.19-5.50); Red Cell Distribution Width 13.9 % (11.5-14.5); White Blood Count 7.9 K/mcL (4.3-11.1)
[2020-09-27 09:00] LABS: Calcium 8.9 mg/dL (8.6-10.3); Potassium 4.5 mEq/L (3.5-5.1)
[2020-09-27 09:14] LABS: Troponin I 1.2 ng/mL (< 0.04)
[2020-09-27 12:15] LABS: Bacteria,Urine Few per hpf (None-Few); Bilirubin,Urine Negative (Negative); Blood,Urine Negative (Negative); Clarity,Urine Clear (Clear); Color,Urine Light-Yellow (Yellow); Glucose,Urine (UA) Normal (Normal); Ketones,Urine Negative (Negative); Leukocyte Esterase,Urine Negative (Negative); Nitrite,Urine Negative (Negative); PH,Urine 6.5 pH Units (5.0-8.0); Protein,Urine 100 mg/dL (Neg-Trace); RBC,Urine 0-3 per hpf (0-3); Specific Gravity,Urine 1.009 (1.010-1.025); Squamous Epithelial Cell,Urine Few per hpf (None-Few); Urobilinogen,Urine Normal (Normal); WBC,Urine 0-3 per hpf (0-3)
[2020-09-27] MEDS: 0.9 % Sodium Chloride 1,000 ML IVC SCH (12:24)
[2020-09-27 12:41] LABS: Sodium, Urine 52.3 mEq/L
[2020-09-27] MEDS: Tiotropium 18 MCG inhalation IH SCH (15:10)
[2020-09-27] MEDS: rOPINIRole 1 MG TABLET PO SCH (20:18)
[2020-09-27] MEDS: Famotidine 20 MG TABLET PO SCH (20:18)
[2020-09-28 02:38] LABS: Hematocrit 39.8 % (37.5-50.1); Mean Corpuscular HGB Conc 32.7 g/dL (31.6-35.5); Mean Corpuscular Hemoglobin 34.2 pg (28.0-33.3); Mean Corpuscular Volume 104.7 fL (83.0-100.0); Mean Platelet Volume 9.6 fL (9.4-12.4); Platelet Count 135 K/mcL (140-400); Red Cell Distribution Width 14.2 % (11.5-14.5); White Blood Count 8.1 K/mcL (4.3-11.1)
[2020-09-28 03:03] LABS: Calcium 9.2 mg/dL (8.6-10.3); Potassium 5.1 mEq/L (3.5-5.1); Troponin I 0.69 ng/mL (< 0.04)
[2020-09-28] MEDS: Nitroglycerin 0.4 MG TAB.SUBL SL PRN ×2 (06:10→20:15)
[2020-09-28] MEDS: Metoprolol XL (24 HR) Succ 50 MG TAB.ER.24H PO SCH (08:28)
[2020-09-28] MEDS: Ranolazine 500 MG TAB.ER.12H PO SCH ×2 (08:28→20:16)
[2020-09-28] MEDS: allopurinoL 300 MG TABLET PO SCH (08:28)
[2020-09-28] MEDS: Aspirin Enteric Coated 81 MG Tablet PO SCH (08:28)
[2020-09-28] MEDS: Isosorbide MONOnitrate (24 HR) 60 MG TAB.ER.24H PO SCH ×2 (08:28→20:16)
[2020-09-28] MEDS: NIFEdipine XL (24 HR) 30 MG TAB.ER.24 PO SCH (08:28)
[2020-09-28] MEDS: Gabapentin 400 MG CAPSULE PO SCH ×4 (08:28→20:16)
[2020-09-28] MEDS: calcitrioL 0.25 MCG CAPSULE PO SCH ×2 (08:28→20:16)
[2020-09-28] MEDS: Multivit/Ca/Min/Fe/FA 1 TAB TABLET PO SCH (08:29)
[2020-09-28] MEDS: Pantoprazole 40 MG VIAL IVP SCH (08:29)
[2020-09-28] MEDS ORDERED: Ergocalciferol (VIT D2) 50,000 UNIT (1.25MG) CAP PO SCH (09:00)
[2020-09-28] MEDS ORDERED: Isosorbide MONOnitrate (24 HR) 60 MG TAB.ER.24H PO SCH (09:00)
[2020-09-28] MEDS ORDERED: 0.9 % Sodium Chloride 250 ML IVC ONE (09:31)
[2020-09-28] MEDS ORDERED: Isosorbide MONOnitrate (24 HR) 30 MG TAB.ER.24H PO STA (10:04)
[2020-09-28] MEDS: Nicotine 21 MG PATCH.TD24 TD SCH (10:42)
[2020-09-28] MEDS: Tiotropium 18 MCG inhalation IH SCH (10:58)
[2020-09-28] MEDS ORDERED: Sodium Bicarbonate 150 MEQ in D5% in Water 1,000 ML IVC SCH (16:00)
[2020-09-28] MEDS: Famotidine 20 MG TABLET PO SCH (20:15)
[2020-09-28] MEDS: rOPINIRole 1 MG TABLET PO SCH (20:16)
[2020-09-28] MEDS ORDERED: Furosemide 40 MG/4 ML VIAL IVP ONE (23:21)
[2020-09-29] MEDS: Heparin 25,000UNIT/250ML 1/2NS 25,000 UNIT/250 ML IV.SOLN IVC SCH ×3 (02:34→23:30)
[2020-09-29 02:56] LABS: Hematocrit 41.1 % (37.5-50.1); Hemoglobin 13.5 g/dL (12.9-16.9); Mean Corpuscular HGB Conc 32.8 g/dL (31.6-35.5); Mean Corpuscular Volume 103.5 fL (83.0-100.0); Mean Platelet Volume 9.9 fL (9.4-12.4); Platelet Count 134 K/mcL (140-400); Red Blood Count 3.97 M/mcL (4.19-5.50); Red Cell Distribution Width 14.1 % (11.5-14.5); White Blood Count 8.4 K/mcL (4.3-11.1)
[2020-09-29 03:08] LABS: Calcium 9.3 mg/dL (8.6-10.3); Potassium 5.2 mEq/L (3.5-5.1)
[2020-09-29 03:47] LABS: ABG Base Excess -1 mEq/L (-2 to 3); ABG HCO3 23 mEq/L (21-27); ABG Oxygen Saturation 88 % (95-98); ABG PCO2 38 mmHg (35-45); ABG PO2 55 mmHg (85-104); ABG TCO2 25 mEq/L (20-26)
[2020-09-29 05:39] LABS: ABG Base Excess -1 mEq/L (-2 to 3); ABG HCO3 24 mEq/L (21-27); ABG Oxygen Saturation 96 % (95-98); ABG PCO2 37 mmHg (35-45); ABG PH 7.41 pH Units (7.32-7.45); ABG PO2 79 mmHg (85-104); ABG TCO2 25 mEq/L (20-26); Blood Gas VT 500 cc
[2020-09-29] MEDS ORDERED: Haloperidol Lactate 5 MG/ML VIAL IVP ONE (08:54)
[2020-09-29] MEDS ORDERED: Piperacillin/Tazobactam 3.375 GM in 0.9 % Sodium Chloride Mini Bag 100 ML IVPB SCH (09:00)
[2020-09-29] MEDS ORDERED: Vancomycin 1,750 MG in 0.9 % Sodium Chloride 250 ML IVPB SCH (09:00)
[2020-09-29] MEDS: Gabapentin 400 MG CAPSULE PO SCH ×4 (09:19→20:19)
[2020-09-29] MEDS: Aspirin Enteric Coated 81 MG Tablet PO SCH (09:19)
[2020-09-29] MEDS: Isosorbide MONOnitrate (24 HR) 60 MG TAB.ER.24H PO SCH ×2 (09:19→20:19)
[2020-09-29] MEDS: Ranolazine 500 MG TAB.ER.12H PO SCH ×2 (09:20→20:18)
[2020-09-29] MEDS: NIFEdipine XL (24 HR) 30 MG TAB.ER.24 PO SCH (09:20)
[2020-09-29] MEDS: calcitrioL 0.25 MCG CAPSULE PO SCH ×2 (09:21→20:19)
[2020-09-29] MEDS: Multivit/Ca/Min/Fe/FA 1 TAB TABLET PO SCH (09:21)
[2020-09-29] MEDS: Metoprolol XL (24 HR) Succ 50 MG TAB.ER.24H PO SCH (09:21)
[2020-09-29] MEDS: allopurinoL 300 MG TABLET PO SCH (09:22)
[2020-09-29] MEDS: Nicotine 21 MG PATCH.TD24 TD SCH (09:30)
[2020-09-29] MEDS ORDERED: Furosemide 40 MG/4 ML VIAL IVP ONE (09:54)
[2020-09-29] MEDS: Tiotropium 18 MCG inhalation IH SCH (09:59)
[2020-09-29] MEDS ORDERED: Vancomycin 1,750 MG/517.5 ML IV.SOLN IVPB ONE (10:30)
[2020-09-29] MEDS: Pantoprazole 40 MG VIAL IVP SCH (11:29)
[2020-09-29] MEDS: Doxycycline 100 MG in 0.9 % Sodium Chloride Mini Bag 100 ML IVPB SCH (18:15)
[2020-09-29] MEDS: Cefepime HCl 1,000 MG in Water for inj. (sterile) 10 ML IVP SCH (18:16)
[2020-09-29 19:18] LABS: Hepatitis B Surface Antibody < 3.10 mIU/mL
[2020-09-29 19:30] LABS: Hepatitis B Surface Antigen Nonreactive (Nonreactive)
[2020-09-29] MEDS: rOPINIRole 1 MG TABLET PO SCH (20:19)
[2020-09-29] MEDS: Nitroglycerin 0.4 MG TAB.SUBL SL PRN (21:01)
[2020-09-30 03:59] LABS: Basophils % 0.2 %; Eosinophils # 0.2 K/mcL (0.0-0.6); Eosinophils % 2.7 %; Hematocrit 41.1 % (37.5-50.1); Hemoglobin 13.5 g/dL (12.9-16.9); Immature Granulocytes % 0.3 % (0-4); Lymphocytes # 1.5 K/mcL (0.6-4.6); Lymphocytes % 16.6 %; Mean Corpuscular HGB Conc 32.8 g/dL (31.6-35.5); Mean Corpuscular Hemoglobin 34.4 pg (28.0-33.3); Mean Corpuscular Volume 104.6 fL (83.0-100.0); Mean Platelet Volume 9.7 fL (9.4-12.4); Monocytes # 0.7 K/mcL (0.0-1.3); Neutrophils # 6.4 K/mcL (1.6-8.9); Platelet Count 131 K/mcL (140-400); Red Blood Count 3.93 M/mcL (4.19-5.50); Red Cell Distribution Width 14.3 % (11.5-14.5); Segmented Neutrophils % 72.2 %; White Blood Count 8.9 K/mcL (4.3-11.1)
[2020-09-30 04:16] LABS: Calcium 9.5 mg/dL (8.6-10.3); Potassium 4.4 mEq/L (3.5-5.1)
[2020-09-30 04:19] LABS: Troponin I 3.34 ng/mL (< 0.04)
[2020-09-30] MEDS: Doxycycline 100 MG in 0.9 % Sodium Chloride Mini Bag 100 ML IVPB SCH ×2 (05:47→16:45)
[2020-09-30] MEDS: Cefepime HCl 1,000 MG in Water for inj. (sterile) 10 ML IVP SCH ×2 (05:48→16:45)
[2020-09-30] MEDS ORDERED: *HR* Heparin 10,000 UNIT/10 ML VIAL IV PRN (07:38)
[2020-09-30] MEDS ORDERED: 0.9 % Sodium Chloride 250 ML IVC PRN (07:38)
[2020-09-30] MEDS ORDERED: 0.9 % Sodium Chloride 1,000 ML PRIME SCH ×2 (07:45→17:00)
[2020-09-30] MEDS ORDERED: Perflutren Lipid Microsphere 1.3 ML in 0.9 % Sodium Chloride 8.7 ML IVP PRN (08:00)
[2020-09-30] MEDS ORDERED: Furosemide 40 MG/4 ML VIAL IVP ONE (08:08)
[2020-09-30] MEDS: Metoprolol XL (24 HR) Succ 50 MG TAB.ER.24H PO SCH (08:51)
[2020-09-30] MEDS: Gabapentin 400 MG CAPSULE PO SCH ×4 (08:52→21:15)
[2020-09-30] MEDS: Aspirin Enteric Coated 81 MG Tablet PO SCH (08:52)
[2020-09-30] MEDS: Isosorbide MONOnitrate (24 HR) 60 MG TAB.ER.24H PO SCH ×2 (08:52→21:14)
[2020-09-30] MEDS: allopurinoL 300 MG TABLET PO SCH (08:53)
[2020-09-30] MEDS: calcitrioL 0.25 MCG CAPSULE PO SCH ×2 (08:53→21:14)
[2020-09-30] MEDS: Ranolazine 500 MG TAB.ER.12H PO SCH ×2 (08:53→21:14)
[2020-09-30] MEDS: Multivit/Ca/Min/Fe/FA 1 TAB TABLET PO SCH (08:53)
[2020-09-30] MEDS: Pantoprazole 40 MG VIAL IVP SCH (08:54)
[2020-09-30] MEDS: NIFEdipine XL (24 HR) 30 MG TAB.ER.24 PO SCH (09:39)
[2020-09-30] MEDS: Nicotine 21 MG PATCH.TD24 TD SCH (09:40)
[2020-09-30] MEDS: Tiotropium 18 MCG inhalation IH SCH (10:26)
[2020-09-30] MEDS ORDERED: 0.9 % Sodium Chloride 500 ML ONE (12:11)
[2020-09-30] MEDS ORDERED: *HR* Heparin 5,000 UNIT/ML VIAL ONE ×2 (13:24→15:08)
[2020-09-30] MEDS ORDERED: Heparin 1,000 UNITS/500 mL 500 ML ONE (14:58)
[2020-09-30 15:18] LABS: ABG Base Excess -1 mEq/L (-2 to 3); ABG HCO3 24 mEq/L (21-27); ABG Oxygen Saturation 95 % (95-98); ABG PCO2 37 mmHg (35-45); ABG PH 7.42 pH Units (7.32-7.45); ABG PO2 73 mmHg (85-104); ABG TCO2 25 mEq/L (20-26)
[2020-09-30] MEDS ORDERED: *HR* Alteplase (Cathflo) 2 MG VIAL IVP PRN (17:00)
[2020-09-30] MEDS ORDERED: *HR* Heparin 5,000 UNIT/ML VIAL IVP PRN (17:00)
[2020-09-30] MEDS ORDERED: 0.9 % Sodium Chloride 1,000 ML PRIME ONE ×2 (17:00)
[2020-09-30] MEDS: Heparin 25,000UNIT/250ML 1/2NS 25,000 UNIT/250 ML IV.SOLN IVC SCH (19:37)
[2020-09-30] MEDS: PrismaSATE BGK 4/2.5 5,000 ML CRRT SCH ×2 (19:38)
[2020-09-30] MEDS: rOPINIRole 1 MG TABLET PO SCH (21:14)
[2020-10-01] MEDS: PrismaSATE BGK 4/2.5 5,000 ML CRRT SCH ×8 (00:14→23:30)
[2020-10-01] MEDS: Heparin 25,000UNIT/250ML 1/2NS 25,000 UNIT/250 ML IV.SOLN IVC SCH ×2 (00:14→15:49)
[2020-10-01 04:40] LABS: Basophils % 0.4 %; Eosinophils # 0.4 K/mcL (0.0-0.6); Eosinophils % 4.9 %; Hematocrit 43.3 % (37.5-50.1); Hemoglobin 14.4 g/dL (12.9-16.9); Immature Granulocytes % 0.3 % (0-4); Lymphocytes # 1.5 K/mcL (0.6-4.6); Lymphocytes % 19.6 %; Mean Corpuscular HGB Conc 33.3 g/dL (31.6-35.5); Mean Corpuscular Hemoglobin 34.2 pg (28.0-33.3); Mean Corpuscular Volume 102.9 fL (83.0-100.0); Mean Platelet Volume 9.9 fL (9.4-12.4); Monocytes # 0.8 K/mcL (0.0-1.3); Monocytes % 10.5 %; Platelet Count 126 K/mcL (140-400); Red Blood Count 4.21 M/mcL (4.19-5.50); Red Cell Distribution Width 14.3 % (11.5-14.5); Segmented Neutrophils % 64.3 %; White Blood Count 7.7 K/mcL (4.3-11.1)
[2020-10-01 04:59] LABS: Calcium 9.2 mg/dL (8.6-10.3)
[2020-10-01] MEDS: Doxycycline 100 MG in 0.9 % Sodium Chloride Mini Bag 100 ML IVPB SCH ×2 (05:01→16:20)
[2020-10-01] MEDS: Cefepime HCl 1,000 MG in Water for inj. (sterile) 10 ML IVP SCH (05:01)
[2020-10-01] MEDS: calcitrioL 0.25 MCG CAPSULE PO SCH ×2 (07:32→19:54)
[2020-10-01] MEDS: Nicotine 21 MG PATCH.TD24 TD SCH (07:33)
[2020-10-01] MEDS: Gabapentin 400 MG CAPSULE PO SCH ×4 (07:34→19:54)
[2020-10-01] MEDS: Pantoprazole 40 MG VIAL IVP SCH (07:34)
[2020-10-01] MEDS: allopurinoL 300 MG TABLET PO SCH (07:34)
[2020-10-01] MEDS: Ranolazine 500 MG TAB.ER.12H PO SCH ×2 (07:35→19:54)
[2020-10-01] MEDS: Aspirin Enteric Coated 81 MG Tablet PO SCH (07:35)
[2020-10-01] MEDS: Isosorbide MONOnitrate (24 HR) 60 MG TAB.ER.24H PO SCH ×2 (07:36→19:54)
[2020-10-01] MEDS: Multivit/Ca/Min/Fe/FA 1 TAB TABLET PO SCH (07:36)
[2020-10-01] MEDS: Furosemide 40 MG TABLET PO SCH (07:50)
[2020-10-01] MEDS: NIFEdipine XL (24 HR) 30 MG TAB.ER.24 PO SCH (09:31)
[2020-10-01] MEDS: Metoprolol XL (24 HR) Succ 50 MG TAB.ER.24H PO SCH (09:31)
[2020-10-01] MEDS: Tiotropium 18 MCG inhalation IH SCH (09:53)
[2020-10-01 11:58] LABS: Alpha 2 Globulin (PEP) 0.91 g/dL (0.48-1.05); Beta Globulin (PEP) 0.61 g/dL (0.48-1.10)
[2020-10-01 12:04] LABS: IFE Reflexed NOT DONE
[2020-10-01] MEDS ORDERED: Melatonin 3 MG TABLET PO PRN (16:54)
[2020-10-01] MEDS ORDERED: Cefepime HCl 2,000 MG in Water for inj. (sterile) 20 ML IVP SCH (18:00)
[2020-10-01] MEDS: rOPINIRole 1 MG TABLET PO SCH (19:55)
[2020-10-02 03:51] LABS: Basophils % 0.6 %; Eosinophils # 0.3 K/mcL (0.0-0.6); Eosinophils % 4.1 %; Hematocrit 45.7 % (37.5-50.1); Hemoglobin 15.4 g/dL (12.9-16.9); Immature Granulocytes % 0.3 % (0-4); Lymphocytes # 1.6 K/mcL (0.6-4.6); Mean Corpuscular HGB Conc 33.7 g/dL (31.6-35.5); Mean Corpuscular Hemoglobin 34.7 pg (28.0-33.3); Mean Corpuscular Volume 102.9 fL (83.0-100.0); Mean Platelet Volume 9.6 fL (9.4-12.4); Monocytes # 0.8 K/mcL (0.0-1.3); Monocytes % 11.8 %; Neutrophils # 4.3 K/mcL (1.6-8.9); Platelet Count 125 K/mcL (140-400); Red Blood Count 4.44 M/mcL (4.19-5.50); Red Cell Distribution Width 14.5 % (11.5-14.5); Segmented Neutrophils % 60.2 %; White Blood Count 7.1 K/mcL (4.3-11.1)
[2020-10-02] MEDS: PrismaSATE BGK 4/2.5 5,000 ML CRRT SCH ×2 (04:00)
[2020-10-02 04:14] LABS: BUN/Creatinine Ratio 11 (6-26); Blood Urea Nitrogen 15 mg/dL (8-23); Calcium 9.6 mg/dL (8.6-10.3); Carbon Dioxide 25 mEq/L (23-29); Chloride 100 mEq/L (98-107); Glucose 131 mg/dL (70-105); Osmolality,Calculated 281 (280-300); Potassium 4.4 mEq/L (3.5-5.1); Sodium 134 mEq/L (136-145); eGFR For African Americans > 60 (> 60); eGFR For Non-African Americans 53 (> 60)
[2020-10-02] MEDS: Doxycycline 100 MG in 0.9 % Sodium Chloride Mini Bag 100 ML IVPB SCH ×2 (05:12→16:20)
[2020-10-02] MEDS: Nicotine 21 MG PATCH.TD24 TD SCH (07:22)
[2020-10-02] MEDS: Aspirin Enteric Coated 81 MG Tablet PO SCH (07:24)
[2020-10-02] MEDS: Multivit/Ca/Min/Fe/FA 1 TAB TABLET PO SCH (07:24)
[2020-10-02] MEDS: allopurinoL 300 MG TABLET PO SCH (07:25)
[2020-10-02] MEDS: calcitrioL 0.25 MCG CAPSULE PO SCH ×2 (07:25→22:22)
[2020-10-02] MEDS: Gabapentin 400 MG CAPSULE PO SCH ×4 (07:25→22:21)
[2020-10-02] MEDS: NIFEdipine XL (24 HR) 30 MG TAB.ER.24 PO SCH (07:25)
[2020-10-02] MEDS: Isosorbide MONOnitrate (24 HR) 60 MG TAB.ER.24H PO SCH ×2 (07:26→22:22)
[2020-10-02] MEDS: Pantoprazole 40 MG VIAL IVP SCH (07:26)
[2020-10-02] MEDS: Ranolazine 500 MG TAB.ER.12H PO SCH ×2 (07:26→22:23)
[2020-10-02] MEDS: Metoprolol XL (24 HR) Succ 50 MG TAB.ER.24H PO SCH (09:05)
[2020-10-02] MEDS: Heparin 25,000UNIT/250ML 1/2NS 25,000 UNIT/250 ML IV.SOLN IVC SCH (09:37)
[2020-10-02] MEDS: Tiotropium 18 MCG inhalation IH SCH (10:09)
[2020-10-02] MEDS: rOPINIRole 1 MG TABLET PO SCH (22:21)
[2020-10-03 04:22] LABS: VBG Ionized Calcium 1.22 mmol/L (1.15-1.35)
[2020-10-03 04:39] LABS: Calcium 10.5 mg/dL (8.6-10.3); Magnesium 2.2 mg/dL (1.6-2.6); Phosphorous 3.9 mg/dL (2.7-4.5); Potassium 4.2 mEq/L (3.5-5.1)
[2020-10-03 04:50] LABS: Basophils % 0.5 %; Eosinophils # 0.3 K/mcL (0.0-0.6); Eosinophils % 3.8 %; Hematocrit 48.4 % (37.5-50.1); Hemoglobin 15.8 g/dL (12.9-16.9); Immature Granulocytes % 0.5 % (0-4); Lymphocytes # 2.2 K/mcL (0.6-4.6); Lymphocytes % 24.7 %; Mean Corpuscular HGB Conc 32.6 g/dL (31.6-35.5); Mean Corpuscular Hemoglobin 34.5 pg (28.0-33.3); Mean Corpuscular Volume 105.7 fL (83.0-100.0); Mean Platelet Volume 9.9 fL (9.4-12.4); Monocytes # 1.5 K/mcL (0.0-1.3); Monocytes % 17.4 %; Neutrophils # 4.6 K/mcL (1.6-8.9); Platelet Count 124 K/mcL (140-400); Red Blood Count 4.58 M/mcL (4.19-5.50); Red Cell Distribution Width 14.5 % (11.5-14.5); Segmented Neutrophils % 53.1 %; White Blood Count 8.7 K/mcL (4.3-11.1)
[2020-10-03] MEDS: Doxycycline 100 MG in 0.9 % Sodium Chloride Mini Bag 100 ML IVPB SCH (05:41)
[2020-10-03] MEDS: Heparin 25,000UNIT/250ML 1/2NS 25,000 UNIT/250 ML IV.SOLN IVC SCH (06:50)
[2020-10-03] MEDS: Gabapentin 400 MG CAPSULE PO SCH ×4 (08:21→20:23)
[2020-10-03] MEDS: Metoprolol XL (24 HR) Succ 50 MG TAB.ER.24H PO SCH (08:21)
[2020-10-03] MEDS: NIFEdipine XL (24 HR) 30 MG TAB.ER.24 PO SCH (08:21)
[2020-10-03] MEDS: Multivit/Ca/Min/Fe/FA 1 TAB TABLET PO SCH (08:21)
[2020-10-03] MEDS: Isosorbide MONOnitrate (24 HR) 60 MG TAB.ER.24H PO SCH ×2 (08:21→20:30)
[2020-10-03] MEDS: Ranolazine 500 MG TAB.ER.12H PO SCH ×2 (08:21→20:25)
[2020-10-03] MEDS: allopurinoL 300 MG TABLET PO SCH (08:21)
[2020-10-03] MEDS: Pantoprazole 40 MG VIAL IVP SCH (08:22)
[2020-10-03] MEDS: calcitrioL 0.25 MCG CAPSULE PO SCH ×2 (08:22→20:24)
[2020-10-03] MEDS: Aspirin Enteric Coated 81 MG Tablet PO SCH (08:22)
[2020-10-03] MEDS: Nicotine 21 MG PATCH.TD24 TD SCH (08:38)
[2020-10-03] MEDS: Tiotropium 18 MCG inhalation IH SCH (10:35)
[2020-10-03] MEDS ORDERED: Melatonin 3 MG TABLET PO PRN (14:46)
[2020-10-03] MEDS ORDERED: Naloxone 0.4 MG/ML INJ IVP PRN (14:46)
[2020-10-03] MEDS ORDERED: Ipratropium/Albuterol Neb 3 ML IH PRN (14:46)
[2020-10-03] MEDS: rOPINIRole 1 MG TABLET PO SCH (20:24)
[2020-10-03] MEDS: Doxycycline 100 MG CAPSULE PO SCH (20:25)
[2020-10-03] MEDS ORDERED: Doxycycline 100 MG CAPSULE PO SCH (21:00)
[2020-10-03] MEDS ORDERED: *HR* Heparin 5,000 UNIT/ML VIAL SQ SCH (22:00)
[2020-10-03] MEDS: *HR* Heparin 5,000 UNIT/ML VIAL SQ SCH (23:13)
[2020-10-04 04:07] LABS: Hematocrit 42.8 % (37.5-50.1); Hemoglobin 14.3 g/dL (12.9-16.9); Mean Corpuscular HGB Conc 33.4 g/dL (31.6-35.5); Mean Corpuscular Hemoglobin 34.4 pg (28.0-33.3); Mean Corpuscular Volume 102.9 fL (83.0-100.0); Mean Platelet Volume 10.3 fL (9.4-12.4); Platelet Count 125 K/mcL (140-400); Red Blood Count 4.16 M/mcL (4.19-5.50); Red Cell Distribution Width 14.3 % (11.5-14.5); White Blood Count 9.6 K/mcL (4.3-11.1)
[2020-10-04 04:26] LABS: Calcium 10.5 mg/dL (8.6-10.3)
[2020-10-04] MEDS: *HR* Heparin 5,000 UNIT/ML VIAL SQ SCH ×3 (05:21→22:03)
[2020-10-04] MEDS: Tiotropium 18 MCG inhalation IH SCH (07:43)
[2020-10-04] MEDS ORDERED: 0.9 % Sodium Chloride 250 ML IVC PRN (08:40)
[2020-10-04] MEDS ORDERED: Albumin 25% 25gram/100mL 25 GM/100 ML IV.SOLN IVPB PRN (08:40)
[2020-10-04] MEDS ORDERED: *HR* Heparin 10,000 UNIT/10 ML VIAL IV PRN (08:40)
[2020-10-04] MEDS ORDERED: NIFEdipine XL (24 HR) 30 MG TAB.ER.24 PO SCH (09:00)
[2020-10-04] MEDS: calcitrioL 0.25 MCG CAPSULE PO SCH ×2 (09:04→22:00)
[2020-10-04] MEDS: Pantoprazole 40 MG VIAL IVP SCH (09:04)
[2020-10-04] MEDS: Metoprolol XL (24 HR) Succ 50 MG TAB.ER.24H PO SCH (09:05)
[2020-10-04] MEDS: Nicotine 21 MG PATCH.TD24 TD SCH (09:05)
[2020-10-04] MEDS: Ranolazine 500 MG TAB.ER.12H PO SCH ×2 (09:06→22:00)
[2020-10-04] MEDS: Gabapentin 400 MG CAPSULE PO SCH ×4 (09:06→21:59)
[2020-10-04] MEDS: Aspirin Enteric Coated 81 MG Tablet PO SCH (09:07)
[2020-10-04] MEDS: Multivit/Ca/Min/Fe/FA 1 TAB TABLET PO SCH (09:07)
[2020-10-04] MEDS: Doxycycline 100 MG CAPSULE PO SCH ×2 (09:07→22:01)
[2020-10-04] MEDS: Isosorbide MONOnitrate (24 HR) 60 MG TAB.ER.24H PO SCH ×2 (10:45→22:01)
[2020-10-04] MEDS: rOPINIRole 1 MG TABLET PO SCH (21:57)
[2020-10-05 05:25] LABS: Red Blood Count 3.74 M/mcL (4.19-5.50); Red Cell Distribution Width 14.2 % (11.5-14.5)
[2020-10-05 05:26] LABS: Hematocrit 38.5 % (37.5-50.1); Hemoglobin 12.9 g/dL (12.9-16.9); Immature Platelets 4.3 % (1.1-6.1); Mean Corpuscular HGB Conc 33.5 g/dL (31.6-35.5); Mean Corpuscular Hemoglobin 34.5 pg (28.0-33.3); Mean Corpuscular Volume 102.9 fL (83.0-100.0); Mean Platelet Volume 10.6 fL (9.4-12.4); White Blood Count 8.1 K/mcL (4.3-11.1)
[2020-10-05 05:38] LABS: Calcium 9.3 mg/dL (8.6-10.3); Potassium 4.2 mEq/L (3.5-5.1)
[2020-10-05] MEDS: *HR* Heparin 5,000 UNIT/ML VIAL SQ SCH ×3 (06:28→21:35)
[2020-10-05] MEDS: Gabapentin 400 MG CAPSULE PO SCH ×4 (08:04→21:35)
[2020-10-05] MEDS: Nicotine 21 MG PATCH.TD24 TD SCH (08:04)
[2020-10-05] MEDS: Pantoprazole 40 MG VIAL IVP SCH (08:04)
[2020-10-05] MEDS: Doxycycline 100 MG CAPSULE PO SCH ×2 (08:05→21:35)
[2020-10-05] MEDS: Aspirin Enteric Coated 81 MG Tablet PO SCH (08:05)
[2020-10-05] MEDS: Metoprolol XL (24 HR) Succ 50 MG TAB.ER.24H PO SCH (08:05)
[2020-10-05] MEDS: calcitrioL 0.25 MCG CAPSULE PO SCH ×2 (08:05→21:37)
[2020-10-05] MEDS: Ranolazine 500 MG TAB.ER.12H PO SCH ×2 (08:05→21:55)
[2020-10-05] MEDS: Isosorbide MONOnitrate (24 HR) 60 MG TAB.ER.24H PO SCH ×2 (08:05→22:00)
[2020-10-05] MEDS: Multivit/Ca/Min/Fe/FA 1 TAB TABLET PO SCH (08:06)
[2020-10-05] MEDS: Tiotropium 18 MCG inhalation IH SCH (08:16)
[2020-10-05] MEDS ORDERED: Ergocalciferol (VIT D2) 50,000 UNIT (1.25MG) CAP PO SCH (09:00)
[2020-10-05] MEDS: rOPINIRole 1 MG TABLET PO SCH (21:36)
[2020-10-05 23:43] LABS: ABG Base Excess 1 mEq/L (-2 to 3); ABG HCO3 26 mEq/L (21-27); ABG Oxygen Saturation 93 % (95-98); ABG PCO2 42 mmHg (35-45); ABG PO2 69 mmHg (85-104); ABG TCO2 27 mEq/L (20-26)
[2020-10-06 00:38] LABS: Bilirubin,Urine Negative (Negative); Blood,Urine Trace (Negative); Clarity,Urine Clear (Clear); Color,Urine Yellow (Yellow); Glucose,Urine (UA) Normal (Normal); Ketones,Urine Negative (Negative); Leukocyte Esterase,Urine Negative (Negative); Mucus,Urine Few per lpf (None-Few); Nitrite,Urine Negative (Negative); PH,Urine 6.5 pH Units (5.0-8.0); Protein,Urine 200 mg/dL (Neg-Trace); Specific Gravity,Urine 1.015 (1.010-1.025); Squamous Epithelial Cell,Urine Few per hpf (None-Few); Urobilinogen,Urine Normal (Normal)
[2020-10-06 01:02] LABS: Hematocrit 42.8 % (37.5-50.1); Hemoglobin 14.3 g/dL (12.9-16.9); Mean Corpuscular HGB Conc 33.4 g/dL (31.6-35.5); Mean Corpuscular Hemoglobin 34.1 pg (28.0-33.3); Mean Corpuscular Volume 102.1 fL (83.0-100.0); Mean Platelet Volume 10.5 fL (9.4-12.4); Platelet Count 99 K/mcL (140-400); Red Blood Count 4.19 M/mcL (4.19-5.50); Red Cell Distribution Width 14.5 % (11.5-14.5); White Blood Count 9.8 K/mcL (4.3-11.1)
[2020-10-06 01:09] LABS: INR 1.1; Prothrombin Time 12.7 Seconds (9.4-12.1)
[2020-10-06 01:18] LABS: Calcium 10.3 mg/dL (8.6-10.3)
[2020-10-06] MEDS: predniSONE 20 MG TABLET PO SCH ×2 (03:23→08:34)
[2020-10-06] MEDS ORDERED: levETIRAcetam 1,000 MG in 0.9 % Sodium Chloride 100 ML IVPB ONE (04:50)
[2020-10-06] MEDS ORDERED: *HR* LORazepam 2 MG/ML VIAL IVP PRN (04:56)
[2020-10-06] MEDS: *HR* Heparin 5,000 UNIT/ML VIAL SQ SCH ×3 (05:04→22:59)
[2020-10-06] MEDS ORDERED: *HR* Heparin 10,000 UNIT/10 ML VIAL IV PRN ×2 (07:53)
[2020-10-06] MEDS ORDERED: 0.9 % Sodium Chloride 250 ML IVC PRN (07:53)
[2020-10-06] MEDS ORDERED: 0.9 % Sodium Chloride 1,000 ML PRIME SCH (08:00)
[2020-10-06] MEDS: Pantoprazole 40 MG VIAL IVP SCH (08:17)
[2020-10-06] MEDS: Tiotropium 18 MCG inhalation IH SCH (08:23)
[2020-10-06] MEDS: Nicotine 21 MG PATCH.TD24 TD SCH (08:30)
[2020-10-06] MEDS: Aspirin Enteric Coated 81 MG Tablet PO SCH (08:32)
[2020-10-06] MEDS: Isosorbide MONOnitrate (24 HR) 60 MG TAB.ER.24H PO SCH ×2 (08:34→22:53)
[2020-10-06] MEDS: Gabapentin 400 MG CAPSULE PO SCH ×3 (08:34→22:59)
[2020-10-06] MEDS: Doxycycline 100 MG CAPSULE PO SCH (08:34)
[2020-10-06] MEDS: Ranolazine 500 MG TAB.ER.12H PO SCH ×2 (08:35→22:56)
[2020-10-06] MEDS: Metoprolol XL (24 HR) Succ 50 MG TAB.ER.24H PO SCH (08:35)
[2020-10-06] MEDS: Multivit/Ca/Min/Fe/FA 1 TAB TABLET PO SCH (08:35)
[2020-10-06] MEDS: calcitrioL 0.25 MCG CAPSULE PO SCH ×2 (08:35→22:58)
[2020-10-06] MEDS ORDERED: *HR* Dextrose 25% in Water (Syg) 10 ML SYRINGE IVP ONE (08:44)
[2020-10-06] MEDS ORDERED: Dextrose Gel 15 GM/37.5 ML TUBE PO PRN ×2 (08:50)
[2020-10-06] MEDS ORDERED: *HR* Dextrose 50 % in Water (Vial) 50 ML VIAL IVP PRN (08:50)
[2020-10-06] MEDS: levETIRAcetam 250 MG TABLET PO SCH (19:06)
[2020-10-06] MEDS: Nitroglycerin 0.4 MG TAB.SUBL SL PRN (19:07)
[2020-10-06] MEDS: rOPINIRole 1 MG TABLET PO SCH (22:54)
[2020-10-07] MEDS: levETIRAcetam 250 MG TABLET PO SCH ×2 (05:55→19:00)
[2020-10-07] MEDS: *HR* Heparin 5,000 UNIT/ML VIAL SQ SCH ×3 (05:55→20:43)
[2020-10-07 06:22] LABS: White Blood Count 7.7 K/mcL (4.3-11.1)
[2020-10-07 06:24] LABS: Hematocrit 39.4 % (37.5-50.1); Hemoglobin 12.8 g/dL (12.9-16.9); Mean Corpuscular HGB Conc 32.5 g/dL (31.6-35.5); Mean Corpuscular Hemoglobin 33.8 pg (28.0-33.3); Mean Platelet Volume 10.7 fL (9.4-12.4); Red Blood Count 3.79 M/mcL (4.19-5.50); Red Cell Distribution Width 14.5 % (11.5-14.5)
[2020-10-07 06:41] LABS: Calcium 9.6 mg/dL (8.6-10.3); Potassium 4.1 mEq/L (3.5-5.1)
[2020-10-07] MEDS: Tiotropium 18 MCG inhalation IH SCH (07:45)
[2020-10-07] MEDS: Isosorbide MONOnitrate (24 HR) 60 MG TAB.ER.24H PO SCH ×2 (08:31→20:42)
[2020-10-07] MEDS: Nicotine 21 MG PATCH.TD24 TD SCH (08:31)
[2020-10-07] MEDS: predniSONE 20 MG TABLET PO SCH (08:34)
[2020-10-07] MEDS: Aspirin Enteric Coated 81 MG Tablet PO SCH (08:34)
[2020-10-07] MEDS: Ranolazine 500 MG TAB.ER.12H PO SCH ×2 (08:35→20:41)
[2020-10-07] MEDS: Multivit/Ca/Min/Fe/FA 1 TAB TABLET PO SCH (08:36)
[2020-10-07] MEDS: Gabapentin 400 MG CAPSULE PO SCH ×4 (08:36→20:42)
[2020-10-07] MEDS: Metoprolol XL (24 HR) Succ 50 MG TAB.ER.24H PO SCH (08:36)
[2020-10-07] MEDS: Pantoprazole 40 MG VIAL IVP SCH (08:37)
[2020-10-07] MEDS: calcitrioL 0.25 MCG CAPSULE PO SCH ×2 (08:38→20:42)
[2020-10-07] MEDS: rOPINIRole 1 MG TABLET PO SCH (20:42)
[2020-10-08 00:35] LABS: Hematocrit 37.1 % (37.5-50.1); Hemoglobin 12.6 g/dL (12.9-16.9); Mean Corpuscular Hemoglobin 35.2 pg (28.0-33.3); Mean Corpuscular Volume 103.6 fL (83.0-100.0); Red Blood Count 3.58 M/mcL (4.19-5.50); Red Cell Distribution Width 14.1 % (11.5-14.5)
[2020-10-08 00:39] LABS: Platelet Count 79 K/mcL (140-400)
[2020-10-08 00:46] LABS: Calcium 10.2 mg/dL (8.6-10.3)
[2020-10-08] MEDS: *HR* Heparin 5,000 UNIT/ML VIAL SQ SCH ×3 (05:33→20:25)
[2020-10-08] MEDS: levETIRAcetam 250 MG TABLET PO SCH ×2 (05:34→18:55)
[2020-10-08] MEDS: Tiotropium 18 MCG inhalation IH SCH (07:50)
[2020-10-08] MEDS: Aspirin Enteric Coated 81 MG Tablet PO SCH (08:33)
[2020-10-08] MEDS: Gabapentin 400 MG CAPSULE PO SCH ×4 (08:33→20:24)
[2020-10-08] MEDS: calcitrioL 0.25 MCG CAPSULE PO SCH ×2 (08:33→20:24)
[2020-10-08] MEDS: predniSONE 20 MG TABLET PO SCH (08:34)
[2020-10-08] MEDS: Multivit/Ca/Min/Fe/FA 1 TAB TABLET PO SCH (08:34)
[2020-10-08] MEDS: Ranolazine 500 MG TAB.ER.12H PO SCH ×2 (08:34→20:23)
[2020-10-08] MEDS: Nicotine 21 MG PATCH.TD24 TD SCH (08:34)
[2020-10-08] MEDS: Pantoprazole 40 MG VIAL IVP SCH (08:46)
[2020-10-08] MEDS: Isosorbide MONOnitrate (24 HR) 60 MG TAB.ER.24H PO SCH ×2 (08:54→20:24)
[2020-10-08] MEDS: Metoprolol XL (24 HR) Succ 50 MG TAB.ER.24H PO SCH (08:57)
[2020-10-08] MEDS: Ipratropium/Albuterol Neb 3 ML IH SCH ×3 (16:24→21:43)
[2020-10-08] MEDS: rOPINIRole 1 MG TABLET PO SCH (20:24)
[2020-10-08 22:39] LABS: Hematocrit 37.3 % (37.5-50.1); Hemoglobin 12.4 g/dL (12.9-16.9)
[2020-10-09] MEDS: Ipratropium/Albuterol Neb 3 ML IH SCH ×4 (03:30→22:01)
[2020-10-09] MEDS: levETIRAcetam 250 MG TABLET PO SCH (05:08)
[2020-10-09] MEDS: *HR* Heparin 5,000 UNIT/ML VIAL SQ SCH ×3 (05:08→20:29)
[2020-10-09 05:28] LABS: Mean Corpuscular HGB Conc 33.4 g/dL (31.6-35.5); Mean Corpuscular Volume 101.6 fL (83.0-100.0); Red Cell Distribution Width 13.8 % (11.5-14.5)
[2020-10-09 05:30] LABS: Hematocrit 37.4 % (37.5-50.1); Hemoglobin 12.5 g/dL (12.9-16.9); Mean Platelet Volume 10.5 fL (9.4-12.4); Red Blood Count 3.68 M/mcL (4.19-5.50); White Blood Count 8.7 K/mcL (4.3-11.1)
[2020-10-09 05:52] LABS: Calcium 10.5 mg/dL (8.6-10.3); Potassium 4.4 mEq/L (3.5-5.1)
[2020-10-09] MEDS: calcitrioL 0.25 MCG CAPSULE PO SCH ×2 (08:12→20:27)
[2020-10-09] MEDS: Isosorbide MONOnitrate (24 HR) 60 MG TAB.ER.24H PO SCH ×2 (08:15→20:28)
[2020-10-09] MEDS: Gabapentin 400 MG CAPSULE PO SCH ×4 (08:15→20:26)
[2020-10-09] MEDS: Aspirin Enteric Coated 81 MG Tablet PO SCH (08:16)
[2020-10-09] MEDS: Multivit/Ca/Min/Fe/FA 1 TAB TABLET PO SCH (08:16)
[2020-10-09] MEDS: Ranolazine 500 MG TAB.ER.12H PO SCH ×2 (08:17→20:26)
[2020-10-09] MEDS: Metoprolol XL (24 HR) Succ 50 MG TAB.ER.24H PO SCH (08:17)
[2020-10-09] MEDS: Nicotine 21 MG PATCH.TD24 TD SCH (08:17)
[2020-10-09] MEDS: Tiotropium 18 MCG inhalation IH SCH (10:32)
[2020-10-09] MEDS: rOPINIRole 1 MG TABLET PO SCH (20:28)
[2020-10-10 03:21] LABS: Mean Platelet Volume 10.3 fL (9.4-12.4)
[2020-10-10 03:23] LABS: Hematocrit 39.4 % (37.5-50.1); Hemoglobin 12.9 g/dL (12.9-16.9); Immature Platelets 3.4 % (1.1-6.1); Mean Corpuscular HGB Conc 32.7 g/dL (31.6-35.5); Mean Corpuscular Hemoglobin 33.9 pg (28.0-33.3); Mean Corpuscular Volume 103.7 fL (83.0-100.0); Red Blood Count 3.8 M/mcL (4.19-5.50); Red Cell Distribution Width 13.9 % (11.5-14.5); White Blood Count 6.1 K/mcL (4.3-11.1)
[2020-10-10] MEDS: Ipratropium/Albuterol Neb 3 ML IH SCH ×4 (03:30→23:04)
[2020-10-10 03:34] LABS: Calcium 10.6 mg/dL (8.6-10.3); Potassium 4.8 mEq/L (3.5-5.1)
[2020-10-10] MEDS: *HR* Heparin 5,000 UNIT/ML VIAL SQ SCH ×2 (08:32→14:27)
[2020-10-10] MEDS: Ranolazine 500 MG TAB.ER.12H PO SCH (08:32)
[2020-10-10] MEDS: Metoprolol XL (24 HR) Succ 50 MG TAB.ER.24H PO SCH (08:32)
[2020-10-10] MEDS: Gabapentin 400 MG CAPSULE PO SCH ×3 (08:33→17:06)
[2020-10-10] MEDS: Aspirin Enteric Coated 81 MG Tablet PO SCH (08:33)
[2020-10-10] MEDS: Multivit/Ca/Min/Fe/FA 1 TAB TABLET PO SCH (08:33)
[2020-10-10] MEDS: calcitrioL 0.25 MCG CAPSULE PO SCH (08:33)
[2020-10-10] MEDS: Isosorbide MONOnitrate (24 HR) 60 MG TAB.ER.24H PO SCH (08:33)
[2020-10-10] MEDS: Nicotine 21 MG PATCH.TD24 TD SCH (08:34)
[2020-10-10] MEDS: Tiotropium 18 MCG inhalation IH SCH (11:01)
[2020-10-10] MEDS ORDERED: Nitroglycerin 1,000 MCG/10 ML VIAL IV ONE (11:23)
[2020-10-10] MEDS ORDERED: *HR* Heparin 10,000 UNIT/10 ML VIAL ONE (11:23)
[2020-10-10] MEDS ORDERED: 0.9 % Sodium Chloride 2,000 ML ONE (11:23)
[2020-10-10] MEDS ORDERED: ISOVUE-370 200 ML INFUS..BTL ONE ×2 (11:23→13:14)
[2020-10-10] MEDS ORDERED: Heparin 1,000 UNITS/500 mL 500 ML ONE ×3 (11:23→13:34)
[2020-10-10] MEDS ORDERED: *HR* Midazolam HCl 2 MG/2 ML VIAL ONE (11:26)
[2020-10-10] MEDS ORDERED: *HR* FentaNYL (PF) 100 MCG/2 ML VIAL ONE (11:26)
[2020-10-10] MEDS ORDERED: 0.9 % Sodium Chloride 1,000 ML ONE (11:29)
[2020-10-11] MEDS: Ranolazine 500 MG TAB.ER.12H PO SCH ×3 (00:45→21:32)
[2020-10-11] MEDS: Isosorbide MONOnitrate (24 HR) 60 MG TAB.ER.24H PO SCH ×3 (00:46→21:30)
[2020-10-11] MEDS: calcitrioL 0.25 MCG CAPSULE PO SCH ×3 (00:46→21:29)
[2020-10-11] MEDS: rOPINIRole 1 MG TABLET PO SCH ×2 (00:46→21:32)
[2020-10-11] MEDS: Gabapentin 400 MG CAPSULE PO SCH ×5 (00:47→21:29)
[2020-10-11] MEDS: *HR* Heparin 5,000 UNIT/ML VIAL SQ SCH ×4 (00:47→21:33)
[2020-10-11 03:08] LABS: Mean Corpuscular Hemoglobin 34.3 pg (28.0-33.3)
[2020-10-11 03:10] LABS: Hematocrit 38.9 % (37.5-50.1); Hemoglobin 12.8 g/dL (12.9-16.9); Immature Platelets 3.1 % (1.1-6.1); Mean Corpuscular HGB Conc 32.9 g/dL (31.6-35.5); Mean Corpuscular Volume 104.3 fL (83.0-100.0); Mean Platelet Volume 10.5 fL (9.4-12.4); Red Blood Count 3.73 M/mcL (4.19-5.50); White Blood Count 8.2 K/mcL (4.3-11.1)
[2020-10-11 03:26] LABS: Calcium 10.3 mg/dL (8.6-10.3); Potassium 4.9 mEq/L (3.5-5.1)
[2020-10-11] MEDS: Ipratropium/Albuterol Neb 3 ML IH SCH ×4 (03:59→22:01)
[2020-10-11] MEDS: Nitroglycerin 0.4 MG TAB.SUBL SL PRN (04:20)
[2020-10-11] MEDS: Tiotropium 18 MCG inhalation IH SCH (09:33)
[2020-10-11] MEDS: Aspirin Enteric Coated 81 MG Tablet PO SCH (10:26)
[2020-10-11] MEDS: Multivit/Ca/Min/Fe/FA 1 TAB TABLET PO SCH (10:26)
[2020-10-11] MEDS: Nicotine 21 MG PATCH.TD24 TD SCH (10:26)
[2020-10-11] MEDS: Metoprolol XL (24 HR) Succ 50 MG TAB.ER.24H PO SCH (10:27)
[2020-10-12] MEDS: Ipratropium/Albuterol Neb 3 ML IH SCH ×3 (03:43→16:58)
[2020-10-12] MEDS: *HR* Heparin 5,000 UNIT/ML VIAL SQ SCH (05:43)
[2020-10-12 06:07] LABS: Hemoglobin 12.5 g/dL (12.9-16.9); Mean Corpuscular Hemoglobin 34.1 pg (28.0-33.3); Red Blood Count 3.67 M/mcL (4.19-5.50)
[2020-10-12 06:09] LABS: Immature Platelets 3.1 % (1.1-6.1); Mean Corpuscular HGB Conc 32.9 g/dL (31.6-35.5); Mean Corpuscular Volume 103.5 fL (83.0-100.0); White Blood Count 8.2 K/mcL (4.3-11.1)
[2020-10-12 06:27] LABS: Potassium 4.6 mEq/L (3.5-5.1)
[2020-10-12] MEDS: Tiotropium 18 MCG inhalation IH SCH (09:03)
[2020-10-12] MEDS: Gabapentin 400 MG CAPSULE PO SCH (11:00)
[2020-10-12] MEDS: Isosorbide MONOnitrate (24 HR) 60 MG TAB.ER.24H PO SCH (11:00)
[2020-10-12] MEDS: Aspirin Enteric Coated 81 MG Tablet PO SCH (11:01)
[2020-10-12] MEDS: Multivit/Ca/Min/Fe/FA 1 TAB TABLET PO SCH (11:01)
[2020-10-12] MEDS: calcitrioL 0.25 MCG CAPSULE PO SCH (11:01)
[2020-10-12] MEDS: Nicotine 21 MG PATCH.TD24 TD SCH (11:01)
[2020-10-12] MEDS: Metoprolol XL (24 HR) Succ 50 MG TAB.ER.24H PO SCH (11:01)
[2020-10-12] MEDS: Ranolazine 500 MG TAB.ER.12H PO SCH (11:01)
[2020-10-12 11:11] VITALS: BP 131/75
== END 2020-10-12 17:10 | disposition home health service (06) | DRG 280 ==
LOC: EMEROOARM 11:15 → 2ANU 11:15 → ICNU 09-29 00:50 → 2NNU 10-03 12:20 → 3BNU 10-09 17:40
PROVIDERS: ADMIT Student in an Organized Health Care Education/Training Program; ATTEND Student in an Organized Health Care Education/Training Program

== ENCOUNTER 2020-10-16 00:36 | Observation (INO) ==
[2020-10-16 01:04] LABS: Basophils % 0.3 %; Eosinophils # 0.4 K/mcL (0.0-0.6); Eosinophils % 3.1 %; Hematocrit 44.2 % (37.5-50.1); Immature Granulocytes % 0.4 % (0-4); Lymphocytes % 16.9 %; Mean Corpuscular HGB Conc 32.6 g/dL (31.6-35.5); Mean Corpuscular Hemoglobin 34.5 pg (28.0-33.3); Mean Platelet Volume 9.6 fL (9.4-12.4); Monocytes # 1.4 K/mcL (0.0-1.3); Monocytes % 11.7 %; Neutrophils # 7.8 K/mcL (1.6-8.9); Platelet Count 147 K/mcL (140-400); Red Blood Count 4.17 M/mcL (4.19-5.50); Segmented Neutrophils % 67.6 %; White Blood Count 11.5 K/mcL (4.3-11.1)
[2020-10-16 01:05] LABS: Hemoglobin 14.4 g/dL (12.9-16.9)
[2020-10-16 01:13] LABS: INR 1.1; Prothrombin Time 12.6 Seconds (9.4-12.1)
[2020-10-16 01:16] LABS: Activated Partial Thrombo Time 32.6 Seconds (26.0-36.0)
[2020-10-16 01:23] LABS: Calcium 10.7 mg/dL (8.6-10.3); Potassium 4.5 mEq/L (3.5-5.1)
[2020-10-16 01:31] LABS: Troponin I 0.12 ng/mL (< 0.04)
[2020-10-16] MEDS ORDERED: Naloxone 0.4 MG/ML INJ IVP PRN (03:14)
[2020-10-16] MEDS ORDERED: Ondansetron 4 MG/2 ML VIAL IVP PRN (03:14)
[2020-10-16] MEDS ORDERED: Nitroglycerin 0.4 MG TAB.SUBL SL PRN (03:22)
[2020-10-16] MEDS ORDERED: Ipratropium/Albuterol Neb 3 ML IH PRN (03:23)
[2020-10-16] MEDS ORDERED: *HR* HYDROcodone/Acet 5/325 mg TABLET PO PRN (04:28)
[2020-10-16] MEDS ORDERED: *HR* Heparin 5,000 UNIT/ML VIAL SQ SCH (06:00)
[2020-10-16 08:01] LABS: Troponin I 1.9 ng/mL (< 0.04)
[2020-10-16] MEDS: Ranolazine 500 MG TAB.ER.12H PO SCH ×2 (08:18→20:18)
[2020-10-16] MEDS: Aspirin 81 MG TAB.CHEW PO SCH (08:18)
[2020-10-16] MEDS: allopurinoL 300 MG TABLET PO SCH (08:19)
[2020-10-16] MEDS: Multivit/Ca/Min/Fe/FA 1 TAB TABLET PO SCH (08:19)
[2020-10-16] MEDS: calcitrioL 0.25 MCG CAPSULE PO SCH ×2 (08:19→20:18)
[2020-10-16] MEDS: Metoprolol XL (24 HR) Succ 50 MG TAB.ER.24H PO SCH (08:19)
[2020-10-16] MEDS: Furosemide 40 MG TABLET PO SCH ×2 (08:19→16:19)
[2020-10-16] MEDS: Isosorbide MONOnitrate (24 HR) 60 MG TAB.ER.24H PO SCH ×2 (08:19→20:18)
[2020-10-16] MEDS: Nystatin POWDER 30 GM BOTTLE TP SCH ×2 (08:21→20:18)
[2020-10-16] MEDS ORDERED: NON-FORMULARY MEDICATION 1 EACH EACH (Ezetimibe 10 MG) PO SCH (09:00)
[2020-10-16] MEDS: Tiotropium 18 MCG inhalation IH SCH (10:15)
[2020-10-16 10:28] LABS: Albumin 3.4 g/dL (3.5-5.7); Albumin/Globulin Ratio 1.2 (1.1-2.2); Bilirubin,Direct 0.2 mg/dL (0.0-0.2); Bilirubin,Indirect 0.6 mg/dL (0.0-1.0); Bilirubin,Total 0.8 mg/dL (0.3-1.0); Globulin 2.9 g/dL (2.4-3.5); Total Protein 6.3 g/dL (6.4-8.9)
[2020-10-16] MEDS ORDERED: *HR* Heparin 5,000 UNIT/ML VIAL IVP PRN ×2 (12:35)
[2020-10-16 13:37] LABS: Heparin anti-factor XA UFH < 0.04 IU/mL (0.30-0.70)
[2020-10-16 13:38] LABS: INR 1.2; Prothrombin Time 13.6 Seconds (9.4-12.1)
[2020-10-16] MEDS: Heparin 25,000UNIT/250ML 1/2NS 25,000 UNIT/250 ML IV.SOLN IVC SCH (14:22)
[2020-10-16 15:08] LABS: Hematocrit 37.2 % (37.5-50.1); Hemoglobin 12.4 g/dL (12.9-16.9); Mean Corpuscular HGB Conc 33.3 g/dL (31.6-35.5); Mean Corpuscular Hemoglobin 34.6 pg (28.0-33.3); Mean Corpuscular Volume 103.9 fL (83.0-100.0); Mean Platelet Volume 10.1 fL (9.4-12.4); Platelet Count 137 K/mcL (140-400); Red Blood Count 3.58 M/mcL (4.19-5.50); Red Cell Distribution Width 13.8 % (11.5-14.5); White Blood Count 8.8 K/mcL (4.3-11.1)
[2020-10-16] MEDS ORDERED: rOPINIRole 0.25 MG TABLET PO SCH (21:00)
[2020-10-16 21:12] LABS: Heparin anti-factor XA UFH 0.56 IU/mL (0.30-0.70)
[2020-10-16 23:22] LABS: Activated Partial Thrombo Time 83.6 Seconds (26.0-36.0)
[2020-10-17 04:58] LABS: Basophils # 0.1 K/mcL (0.0-0.2); Basophils % 0.6 %; Eosinophils # 0.5 K/mcL (0.0-0.6); Eosinophils % 5.9 %; Hemoglobin 12.8 g/dL (12.9-16.9); Immature Granulocytes % 0.5 % (0-4); Lymphocytes # 2.6 K/mcL (0.6-4.6); Lymphocytes % 32.7 %; Mean Corpuscular HGB Conc 32.8 g/dL (31.6-35.5); Mean Corpuscular Hemoglobin 34.5 pg (28.0-33.3); Mean Corpuscular Volume 105.1 fL (83.0-100.0); Mean Platelet Volume 10.1 fL (9.4-12.4); Monocytes # 0.8 K/mcL (0.0-1.3); Monocytes % 10.3 %; Platelet Count 131 K/mcL (140-400); Red Blood Count 3.71 M/mcL (4.19-5.50); Red Cell Distribution Width 13.7 % (11.5-14.5); White Blood Count 8.1 K/mcL (4.3-11.1)
[2020-10-17 05:18] LABS: Calcium 9.8 mg/dL (8.6-10.3); Magnesium 1.6 mg/dL (1.6-2.6); Phosphorous 4.2 mg/dL (2.7-4.5); Potassium 4.9 mEq/L (3.5-5.1)
[2020-10-17 05:24] LABS: Troponin I 1.61 ng/mL (< 0.04)
[2020-10-17] MEDS: Tiotropium 18 MCG inhalation IH SCH (07:46)
[2020-10-17] MEDS: Ranolazine 500 MG TAB.ER.12H PO SCH (09:09)
[2020-10-17] MEDS: Nystatin POWDER 30 GM BOTTLE TP SCH (09:09)
[2020-10-17] MEDS: Metoprolol XL (24 HR) Succ 50 MG TAB.ER.24H PO SCH (09:09)
[2020-10-17] MEDS: Multivit/Ca/Min/Fe/FA 1 TAB TABLET PO SCH (09:09)
[2020-10-17] MEDS: Aspirin 81 MG TAB.CHEW PO SCH (09:09)
[2020-10-17] MEDS: Isosorbide MONOnitrate (24 HR) 60 MG TAB.ER.24H PO SCH (09:09)
[2020-10-17] MEDS: Furosemide 40 MG TABLET PO SCH (09:09)
[2020-10-17] MEDS: allopurinoL 300 MG TABLET PO SCH (09:09)
[2020-10-17] MEDS: calcitrioL 0.25 MCG CAPSULE PO SCH (09:09)
[2020-10-17] MEDS: Heparin 25,000UNIT/250ML 1/2NS 25,000 UNIT/250 ML IV.SOLN IVC SCH (09:23)
[2020-10-17 11:09] VITALS: BP 126/81
== END 2020-10-17 15:18 | disposition home health service (06) ==
LOC: EMEROOARM 00:36 → 2ANU 00:36 → SUATTDRO 03:19 → 2ANU 03:57
PROVIDERS: ADMIT Internal Medicine; ATTEND Internal Medicine

== ENCOUNTER 2020-11-12 19:21 | Inpatient (IN) ==
[2020-11-12] MEDS ORDERED: 0.9 % Sodium Chloride 1,000 ML ONE (19:45)
[2020-11-12] MEDS ORDERED: *HR* Heparin 5,000 UNIT/ML VIAL ONE (19:45)
[2020-11-12] MEDS ORDERED: Aspirin 81 MG TAB.CHEW ONE (19:45)
[2020-11-12] MEDS ORDERED: *HR* Ticagrelor 90 MG TABLET ONE (19:45)
[2020-11-12 19:48] LABS: Basophils % 0.3 %; Eosinophils # 0.3 K/mcL (0.0-0.6); Eosinophils % 3.6 %; Hematocrit 43.9 % (37.5-50.1); Hemoglobin 14.4 g/dL (12.9-16.9); Immature Granulocytes % 0.3 % (0-4); Lymphocytes # 1.7 K/mcL (0.6-4.6); Lymphocytes % 18.2 %; Mean Corpuscular HGB Conc 32.8 g/dL (31.6-35.5); Mean Corpuscular Hemoglobin 34.6 pg (28.0-33.3); Mean Corpuscular Volume 105.5 fL (83.0-100.0); Mean Platelet Volume 9.4 fL (9.4-12.4); Monocytes % 10.9 %; Neutrophils # 6.2 K/mcL (1.6-8.9); Platelet Count 151 K/mcL (140-400); Red Blood Count 4.16 M/mcL (4.19-5.50); Red Cell Distribution Width 14.7 % (11.5-14.5); Segmented Neutrophils % 66.7 %; White Blood Count 9.3 K/mcL (4.3-11.1)
[2020-11-12] MEDS ORDERED: *HR* Metoprolol 5 MG/5 ML VIAL IVP ONE (19:52)
[2020-11-12] MEDS ORDERED: *HR* FentaNYL (PF) 100 MCG/2 ML VIAL IVP ONE (19:54)
[2020-11-12] MEDS ORDERED: Aspirin 81 MG TAB.CHEW PO ONE (19:55)
[2020-11-12] MEDS ORDERED: *HR* Heparin 5,000 UNIT/ML VIAL IVP ONE (19:55)
[2020-11-12 20:06] LABS: INR 1.1; Prothrombin Time 12.3 Seconds (9.4-12.1)
[2020-11-12] MEDS ORDERED: 0.9 % Sodium Chloride 2,000 ML ONE (20:07)
[2020-11-12] MEDS ORDERED: Heparin 1,000 UNITS/500 mL 500 ML ONE ×2 (20:08→20:23)
[2020-11-12] MEDS ORDERED: ISOVUE-370 200 ML INFUS..BTL ONE (20:08)
[2020-11-12] MEDS ORDERED: Nitroglycerin 1,000 MCG/10 ML VIAL IV ONE (20:08)
[2020-11-12] MEDS ORDERED: *HR* Heparin 10,000 UNIT/10 ML VIAL ONE (20:08)
[2020-11-12 20:09] LABS: Activated Partial Thrombo Time 32.2 Seconds (26.0-36.0)
[2020-11-12 20:15] LABS: Troponin I 0.04 ng/mL (< 0.04)
[2020-11-12] MEDS ORDERED: *HR* FentaNYL (PF) 100 MCG/2 ML VIAL ONE (20:18)
[2020-11-12] MEDS ORDERED: *HR* Midazolam HCl 2 MG/2 ML VIAL ONE (20:18)
[2020-11-12 20:21] LABS: Calcium 9.9 mg/dL (8.6-10.3); Magnesium 2.1 mg/dL (1.6-2.6); Potassium 5.9 mEq/L (3.5-5.1)
[2020-11-12] MEDS ORDERED: *HR* Atropine Sulfate 1 MG/10 ML SYRINGE ONE (21:15)
[2020-11-12] MEDS ORDERED: 0.9 % Sodium Chloride 1,000 ML IVC SCH (22:00)
[2020-11-12] MEDS ORDERED: Naloxone 0.4 MG/ML INJ IVP PRN (23:16)
[2020-11-12 23:25] LABS: Calcium 9.5 mg/dL (8.6-10.3); Potassium 6.6 mEq/L (3.5-5.1)
[2020-11-12] MEDS ORDERED: Insulin Human Regular 10 UNIT in 0.9 % Sodium Chloride 10 ML IV ONE (23:32)
[2020-11-12] MEDS ORDERED: *HR* Dextrose 50 % in Water (Vial) 50 ML VIAL IVP ONE (23:33)
[2020-11-13] MEDS ORDERED: Sodium Bicarbonate 150 MEQ in D5% in Water 1,000 ML IVC SCH
[2020-11-13 00:18] LABS: ABG Base Excess -2 mEq/L (-2 to 3); ABG HCO3 23 mEq/L (21-27); ABG Oxygen Saturation 94 % (95-98); ABG PCO2 41 mmHg (35-45); ABG PH 7.36 pH Units (7.32-7.45); ABG PO2 74 mmHg (85-104); ABG TCO2 24 mEq/L (20-26)
[2020-11-13] MEDS: Calcium Gluconate 1gm/50mL 1 GM/50 ML BAG IVPB SCH ×4 (00:23→06:33)
[2020-11-13 05:50] LABS: Basophils % 0.3 %; Eosinophils # 0.2 K/mcL (0.0-0.6); Eosinophils % 2.6 %; Hematocrit 37.6 % (37.5-50.1); Immature Granulocytes % 0.3 % (0-4); Lymphocytes # 2.2 K/mcL (0.6-4.6); Lymphocytes % 31.1 %; Mean Corpuscular HGB Conc 32.4 g/dL (31.6-35.5); Mean Corpuscular Volume 104.7 fL (83.0-100.0); Mean Platelet Volume 9.5 fL (9.4-12.4); Monocytes # 0.9 K/mcL (0.0-1.3); Monocytes % 12.4 %; Neutrophils # 3.7 K/mcL (1.6-8.9); Platelet Count 136 K/mcL (140-400); Red Blood Count 3.59 M/mcL (4.19-5.50); Red Cell Distribution Width 14.6 % (11.5-14.5); Segmented Neutrophils % 53.3 %
[2020-11-13 05:57] LABS: Hemoglobin 12.2 g/dL (12.9-16.9)
[2020-11-13 06:04] LABS: Calcium 9.3 mg/dL (8.6-10.3); Phosphorous 4.5 mg/dL (2.7-4.5); Potassium 4.1 mEq/L (3.5-5.1)
[2020-11-13 08:17] LABS: Hematocrit 39.2 % (37.5-50.1); Hemoglobin 12.8 g/dL (12.9-16.9)
[2020-11-13 09:01] LABS: Calcium 9.8 mg/dL (8.6-10.3); Potassium 4.5 mEq/L (3.5-5.1)
[2020-11-13] MEDS: Nicotine 21 MG PATCH.TD24 TD SCH (12:39)
[2020-11-13 13:43] LABS: Calcium 9.3 mg/dL (8.6-10.3); Potassium 3.8 mEq/L (3.5-5.1)
[2020-11-13] MEDS: Morphine Sulfate 2 MG/ML SYRINGE IVP PRN (16:01)
[2020-11-13] MEDS ORDERED: NON-FORMULARY MEDICATION 1 EACH EACH (Ezetimibe 10 MG) PO SCH (18:00)
[2020-11-13] MEDS ORDERED: Metoprolol XL (24 HR) Succ 50 MG TAB.ER.24H PO SCH (18:00)
[2020-11-13] MEDS: Furosemide 40 MG TABLET PO SCH (18:18)
[2020-11-13] MEDS: Gabapentin 400 MG CAPSULE PO SCH ×2 (18:18→21:34)
[2020-11-13] MEDS: *HR* Heparin 5,000 UNIT/ML VIAL SQ SCH ×2 (18:19→21:34)
[2020-11-13] MEDS: Nitroglycerin 0.4 MG TAB.SUBL SL SCH ×2 (18:21→21:39)
[2020-11-13] MEDS ORDERED: rOPINIRole 0.25 MG TABLET PO SCH (21:00)
[2020-11-13] MEDS: Ranolazine 500 MG TAB.ER.12H PO SCH (21:33)
[2020-11-13] MEDS: Isosorbide MONOnitrate (24 HR) 60 MG TAB.ER.24H PO SCH (21:34)
[2020-11-13] MEDS: calcitrioL 0.25 MCG CAPSULE PO SCH (21:36)
[2020-11-13] MEDS: Nystatin POWDER 30 GM BOTTLE TP SCH (21:46)
[2020-11-14 04:28] LABS: Hematocrit 34.8 % (37.5-50.1); Hemoglobin 11.4 g/dL (12.9-16.9); Mean Corpuscular HGB Conc 32.8 g/dL (31.6-35.5); Mean Corpuscular Hemoglobin 34.8 pg (28.0-33.3); Mean Corpuscular Volume 106.1 fL (83.0-100.0); Mean Platelet Volume 9.6 fL (9.4-12.4); Platelet Count 126 K/mcL (140-400); Red Blood Count 3.28 M/mcL (4.19-5.50); Red Cell Distribution Width 14.8 % (11.5-14.5); White Blood Count 7.2 K/mcL (4.3-11.1)
[2020-11-14 04:31] LABS: VBG Ionized Calcium 1.09 mmol/L (1.15-1.35)
[2020-11-14 04:47] LABS: Calcium 8.7 mg/dL (8.6-10.3)
[2020-11-14] MEDS: *HR* Heparin 5,000 UNIT/ML VIAL SQ SCH ×2 (06:27→12:52)
[2020-11-14] MEDS: Nitroglycerin 0.4 MG TAB.SUBL SL SCH ×2 (06:28→12:52)
[2020-11-14] MEDS: Ranolazine 500 MG TAB.ER.12H PO SCH (08:12)
[2020-11-14] MEDS: Furosemide 40 MG TABLET PO SCH (08:12)
[2020-11-14] MEDS: Isosorbide MONOnitrate (24 HR) 60 MG TAB.ER.24H PO SCH (08:13)
[2020-11-14] MEDS: Gabapentin 400 MG CAPSULE PO SCH ×2 (08:13→12:52)
[2020-11-14] MEDS: calcitrioL 0.25 MCG CAPSULE PO SCH (08:13)
[2020-11-14] MEDS: Nicotine 21 MG PATCH.TD24 TD SCH (08:13)
[2020-11-14] MEDS: Nystatin POWDER 30 GM BOTTLE TP SCH (08:18)
[2020-11-14] MEDS ORDERED: Aspirin 81 MG TAB.CHEW PO SCH (09:00)
[2020-11-14] MEDS ORDERED: amLODIPine 5 MG TABLET PO SCH (09:00)
[2020-11-14] MEDS ORDERED: Tiotropium 10 INH DOSE IH SCH (09:00)
[2020-11-14] MEDS ORDERED: allopurinoL 300 MG TABLET PO SCH (09:00)
[2020-11-14] MEDS ORDERED: Multivit/Ca/Min/Fe/FA 1 TAB TABLET PO SCH (09:00)
[2020-11-14] MEDS ORDERED: FLUoxetine 20 MG CAPSULE PO SCH (09:00)
[2020-11-14 11:46] LABS: Sodium, Urine 52.6 mEq/L
[2020-11-14] MEDS: Morphine Sulfate 2 MG/ML SYRINGE IVP PRN (13:30)
[2020-11-14] MEDS ORDERED: Isosorbide MONOnitrate (24 HR) 60 MG TAB.ER.24H PO ONE (13:38)
[2020-11-14] MEDS ORDERED: Calcium Gluconate 1gm/50mL 1 GM/50 ML BAG IVPB ONE (13:39)
[2020-11-14] MEDS ORDERED: Nitroglycerin 1 INCH/GM PACKET TP SCH ×2 (14:00→18:00)
[2020-11-14] MEDS ORDERED: Perflutren Lipid Microsphere 1.3 ML in 0.9 % Sodium Chloride 8.7 ML IVP PRN ×2 (15:31→16:49)
[2020-11-14] MEDS ORDERED: Naloxone 0.4 MG/ML INJ IVP PRN (16:49)
[2020-11-14] MEDS ORDERED: Morphine Sulfate 2 MG/ML SYRINGE IVP PRN (16:49)
[2020-11-14] MEDS ORDERED: Furosemide 40 MG TABLET PO SCH (17:00)
[2020-11-14] MEDS ORDERED: Gabapentin 400 MG CAPSULE PO SCH (17:00)
[2020-11-14] MEDS ORDERED: Metoprolol XL (24 HR) Succ 50 MG TAB.ER.24H PO SCH (18:00)
[2020-11-14 18:06] VITALS: BP 105/76
[2020-11-14] MEDS ORDERED: Ranolazine 500 MG TAB.ER.12H PO SCH ×2 (21:00)
[2020-11-14] MEDS ORDERED: Nystatin POWDER 30 GM BOTTLE TP SCH (21:00)
[2020-11-14] MEDS ORDERED: rOPINIRole 0.25 MG TABLET PO SCH (21:00)
[2020-11-14] MEDS ORDERED: calcitrioL 0.25 MCG CAPSULE PO SCH (21:00)
[2020-11-14] MEDS ORDERED: Nitroglycerin 0.4 MG TAB.SUBL SL SCH (21:30)
[2020-11-14] MEDS ORDERED: *HR* Heparin 5,000 UNIT/ML VIAL SQ SCH (22:00)
[2020-11-15] MEDS ORDERED: Aspirin 81 MG TAB.CHEW PO SCH (09:00)
[2020-11-15] MEDS ORDERED: amLODIPine 5 MG TABLET PO SCH (09:00)
[2020-11-15] MEDS ORDERED: Nicotine 21 MG PATCH.TD24 TD SCH (09:00)
[2020-11-15] MEDS ORDERED: Multivit/Ca/Min/Fe/FA 1 TAB TABLET PO SCH (09:00)
[2020-11-15] MEDS ORDERED: FLUoxetine 20 MG CAPSULE PO SCH (09:00)
[2020-11-15] MEDS ORDERED: Tiotropium 10 INH DOSE IH SCH (09:00)
[2020-11-15] MEDS ORDERED: Isosorbide MONOnitrate (24 HR) 60 MG TAB.ER.24H PO SCH ×2 (09:00)
[2020-11-15] MEDS ORDERED: allopurinoL 300 MG TABLET PO SCH (09:00)
== END 2020-11-14 19:20 | disposition short-term general hospital (02) | DRG 281 ==
LOC: ICNU 19:21 → EMEROOARM 19:21 → ICNU 20:30
PROVIDERS: ADMIT Internal Medicine; ATTEND Internal Medicine Cardiovascular Disease

== ENCOUNTER 2021-10-06 00:08 | Inpatient (IN) ==
[2021-10-06] MEDS ORDERED: Acetaminophen 325 MG TABLET PO PRN (12:22)
[2021-10-06] MEDS ORDERED: Ondansetron 4 MG/2 ML VIAL IVP PRN (12:22)
[2021-10-06] MEDS ORDERED: Naloxone 0.4 MG/ML INJ IVP PRN (12:22)
[2021-10-06 12:51] LABS: Basophils % 0.6 %; Eosinophils # 0.3 K/mcL (0.0-0.6); Eosinophils % 4.8 %; Hematocrit 31.8 % (37.5-50.1); Hemoglobin 10.1 g/dL (12.9-16.9); Immature Granulocytes % 0.3 % (0-4); Lymphocytes # 1.7 K/mcL (0.6-4.6); Lymphocytes % 26.6 %; Mean Corpuscular HGB Conc 31.8 g/dL (31.6-35.5); Mean Corpuscular Volume 100.6 fL (83.0-100.0); Mean Platelet Volume 9.7 fL (9.4-12.4); Monocytes # 0.4 K/mcL (0.0-1.3); Monocytes % 6.6 %; Platelet Count 173 K/mcL (140-400); Red Blood Count 3.16 M/mcL (4.19-5.50); Segmented Neutrophils % 61.1 %; White Blood Count 6.5 K/mcL (4.3-11.1)
[2021-10-06 12:59] LABS: INR 1.2; Prothrombin Time 13.9 Seconds (9.4-12.1)
[2021-10-06 13:07] LABS: Calcium 9.2 mg/dL (8.6-10.3); Magnesium 2.1 mg/dL (1.6-2.6); Potassium 3.4 mEq/L (3.5-5.1)
[2021-10-06 13:48] LABS: Bilirubin,Urine Negative (Negative); Blood,Urine Small (Negative); Budding Yeast,Urine Few per hpf (None Seen); Clarity,Urine Turbid (Clear); Color,Urine Yellow (Yellow); Glucose,Urine (UA) Normal (Normal); Hyaline Casts,Urine Few per lpf (None Seen); Ketones,Urine Negative (Negative); Leukocyte Esterase,Urine Large (Negative); Mucus,Urine Few per lpf (None-Few); Nitrite,Urine Negative (Negative); Protein,Urine >=300 mg/dL (Neg-Trace); Specific Gravity,Urine 1.015 (1.010-1.025); Squamous Epithelial Cell,Urine Few per hpf (None-Few); Urobilinogen,Urine Normal (Normal); WBC,Urine 50-100 per hpf (0-3)
[2021-10-06 14:07] LABS: Troponin I 0.21 ng/mL (< 0.04)
[2021-10-06 14:35] LABS: Thyroid Stimulating Hormone 2.66 mcIU/mL (0.340-5.600)
[2021-10-06] MEDS ORDERED: *HR* Heparin 5,000 UNIT/ML VIAL IVP ONE (15:00)
[2021-10-06] MEDS ORDERED: *HR* Heparin 5,000 UNIT/ML VIAL IVP PRN (15:00)
[2021-10-06] MEDS: Heparin 25,000 UNIT/250 ML 25,000 UNIT/250 ML IV.SOLN IVC SCH (15:54)
[2021-10-06] MEDS ORDERED: Perflutren Lipid Microsphere 1.3 ML in 0.9 % Sodium Chloride 8.7 ML IVP PRN (20:03)
[2021-10-06] MEDS: cefTRIAXone 1,000 MG in 0.9 % Sodium Chloride Mini Bag 100 ML IVPB SCH (20:28)
[2021-10-06] MEDS ORDERED: Ipratropium/Albuterol Neb 3 ML IH PRN (20:30)
[2021-10-06 22:03] LABS: Hematocrit 32.5 % (37.5-50.1); Mean Corpuscular HGB Conc 30.8 g/dL (31.6-35.5); Mean Corpuscular Hemoglobin 30.8 pg (28.0-33.3); Platelet Count 170 K/mcL (140-400); Red Blood Count 3.25 M/mcL (4.19-5.50); Red Cell Distribution Width 15.1 % (11.5-14.5); White Blood Count 5.6 K/mcL (4.3-11.1)
[2021-10-06] MEDS: *HR* Heparin 5,000 UNIT/ML VIAL IVP PRN (22:55)
[2021-10-07] MEDS: Nitroglycerin 0.4 MG TAB.SUBL SL PRN ×5 (05:29→08:41)
[2021-10-07] MEDS ORDERED: Morphine Sulfate 2 MG/ML SYRINGE IVP ONE (05:55)
[2021-10-07] MEDS: Nicotine 21 MG PATCH.TD24 TD SCH (07:36)
[2021-10-07] MEDS ORDERED: Nitroglycerin 0.4 MG TAB.SUBL SL PRN (07:37)
[2021-10-07] MEDS ORDERED: Furosemide 40 MG TABLET PO SCH (08:00)
[2021-10-07] MEDS: Aspirin Enteric Coated 81 MG Tablet PO SCH (08:12)
[2021-10-07] MEDS: Sucralfate 1 GM TABLET PO SCH ×2 (08:12→20:21)
[2021-10-07] MEDS: allopurinoL 300 MG TABLET PO SCH (08:12)
[2021-10-07] MEDS: FLUoxetine 20 MG CAPSULE PO SCH (08:12)
[2021-10-07] MEDS: calcitrioL 0.25 MCG CAPSULE PO SCH ×2 (08:12→20:27)
[2021-10-07 08:29] LABS: Basophils % 0.4 %; Eosinophils # 0.4 K/mcL (0.0-0.6); Eosinophils % 5.6 %; Hematocrit 34.8 % (37.5-50.1); Hemoglobin 10.9 g/dL (12.9-16.9); Immature Granulocytes % 0.3 % (0-4); Lymphocytes # 1.6 K/mcL (0.6-4.6); Lymphocytes % 21.7 %; Mean Corpuscular HGB Conc 31.3 g/dL (31.6-35.5); Mean Corpuscular Hemoglobin 31.7 pg (28.0-33.3); Mean Corpuscular Volume 101.2 fL (83.0-100.0); Mean Platelet Volume 10.9 fL (9.4-12.4); Monocytes # 0.5 K/mcL (0.0-1.3); Monocytes % 6.2 %; Neutrophils # 4.9 K/mcL (1.6-8.9); Platelet Count 208 K/mcL (140-400); Red Blood Count 3.44 M/mcL (4.19-5.50); Red Cell Distribution Width 15.4 % (11.5-14.5); Segmented Neutrophils % 65.8 %; White Blood Count 7.4 K/mcL (4.3-11.1)
[2021-10-07 08:47] LABS: Calcium 9.3 mg/dL (8.6-10.3); Magnesium 2.1 mg/dL (1.6-2.6); Potassium 4.1 mEq/L (3.5-5.1)
[2021-10-07] MEDS ORDERED: Isosorbide MONOnitrate (24 HR) 60 MG TAB.ER.24H PO SCH (09:00)
[2021-10-07] MEDS ORDERED: Ranolazine 500 MG TAB.ER.12H PO SCH (09:00)
[2021-10-07] MEDS: *HR* Heparin 5,000 UNIT/ML VIAL IVP PRN (09:20)
[2021-10-07] MEDS ORDERED: GI Cocktail 40 ML EACH PO ONE (12:58)
[2021-10-07] MEDS: Heparin 25,000 UNIT/250 ML 25,000 UNIT/250 ML IV.SOLN IVC SCH (12:59)
[2021-10-07] MEDS: Ipratropium/Albuterol Neb 3 ML IH SCH ×2 (16:21→21:27)
[2021-10-07] MEDS: Metoprolol XL (24 HR) Succ 50 MG TAB.ER.24H PO SCH (17:08)
[2021-10-07] MEDS: Isosorbide MONOnitrate (24 HR) 60 MG TAB.ER.24H PO SCH (20:21)
[2021-10-07] MEDS: Ranolazine 500 MG TAB.ER.12H PO SCH (20:22)
[2021-10-07] MEDS: Furosemide 40 MG/4 ML VIAL IVP SCH (20:22)
[2021-10-07] MEDS: cefTRIAXone 1,000 MG in 0.9 % Sodium Chloride Mini Bag 100 ML IVPB SCH (20:28)
[2021-10-07] MEDS: Nystatin POWDER 30 GM BOTTLE TP SCH (20:29)
[2021-10-08 02:50] LABS: Basophils % 0.3 %; Eosinophils # 0.4 K/mcL (0.0-0.6); Eosinophils % 6.3 %; Hematocrit 28.1 % (37.5-50.1); Hemoglobin 8.8 g/dL (12.9-16.9); Immature Granulocytes % 0.3 % (0-4); Lymphocytes # 1.8 K/mcL (0.6-4.6); Lymphocytes % 28.2 %; Mean Corpuscular HGB Conc 31.3 g/dL (31.6-35.5); Mean Corpuscular Hemoglobin 31.5 pg (28.0-33.3); Mean Corpuscular Volume 100.7 fL (83.0-100.0); Monocytes # 0.4 K/mcL (0.0-1.3); Monocytes % 6.5 %; Neutrophils # 3.6 K/mcL (1.6-8.9); Platelet Count 160 K/mcL (140-400); Red Blood Count 2.79 M/mcL (4.19-5.50); Red Cell Distribution Width 15.2 % (11.5-14.5); Segmented Neutrophils % 58.4 %; White Blood Count 6.2 K/mcL (4.3-11.1)
[2021-10-08 02:59] LABS: Calcium 9.1 mg/dL (8.6-10.3)
[2021-10-08] MEDS: Ipratropium/Albuterol Neb 3 ML IH SCH ×4 (04:11→20:19)
[2021-10-08] MEDS: Heparin 25,000 UNIT/250 ML 25,000 UNIT/250 ML IV.SOLN IVC SCH (05:17)
[2021-10-08] MEDS: Nicotine 21 MG PATCH.TD24 TD SCH (09:05)
[2021-10-08] MEDS: Isosorbide MONOnitrate (24 HR) 60 MG TAB.ER.24H PO SCH ×2 (09:05→20:53)
[2021-10-08] MEDS: FLUoxetine 20 MG CAPSULE PO SCH (09:05)
[2021-10-08] MEDS: Sucralfate 1 GM TABLET PO SCH ×2 (09:05→20:53)
[2021-10-08] MEDS: allopurinoL 300 MG TABLET PO SCH (09:06)
[2021-10-08] MEDS: Ranolazine 500 MG TAB.ER.12H PO SCH ×2 (09:06→20:53)
[2021-10-08] MEDS: Aspirin Enteric Coated 81 MG Tablet PO SCH (09:06)
[2021-10-08] MEDS: Furosemide 40 MG/4 ML VIAL IVP SCH ×2 (09:06→20:54)
[2021-10-08] MEDS: calcitrioL 0.25 MCG CAPSULE PO SCH ×2 (09:06→20:53)
[2021-10-08] MEDS: Nystatin POWDER 30 GM BOTTLE TP SCH ×2 (09:14→21:10)
[2021-10-08] MEDS ORDERED: Furosemide 40 MG/4 ML VIAL IVP ONE (09:22)
[2021-10-08] MEDS: Nitroglycerin 0.4 MG TAB.SUBL SL PRN ×2 (10:22→17:09)
[2021-10-08] MEDS: *HR* Heparin 5,000 UNIT/ML VIAL SQ SCH ×2 (12:44→20:53)
[2021-10-08] MEDS: Metoprolol XL (24 HR) Succ 50 MG TAB.ER.24H PO SCH (17:09)
[2021-10-08] MEDS: cefTRIAXone 1,000 MG in 0.9 % Sodium Chloride Mini Bag 100 ML IVPB SCH (20:52)
[2021-10-09] MEDS ORDERED: Melatonin 3 MG TABLET PO PRN (00:14)
[2021-10-09] MEDS: Ipratropium/Albuterol Neb 3 ML IH SCH ×4 (04:11→16:04)
[2021-10-09 04:13] VITALS: TEMP 97.9
[2021-10-09] MEDS: *HR* Heparin 5,000 UNIT/ML VIAL SQ SCH ×2 (06:05→15:44)
[2021-10-09 07:03] LABS: Calcium 9.9 mg/dL (8.6-10.3); Potassium 4.2 mEq/L (3.5-5.1)
[2021-10-09 07:22] LABS: Hematocrit 26.6 % (37.5-50.1); Hemoglobin 8.2 g/dL (12.9-16.9); Mean Corpuscular HGB Conc 30.8 g/dL (31.6-35.5); Mean Corpuscular Hemoglobin 30.9 pg (28.0-33.3); Mean Corpuscular Volume 100.4 fL (83.0-100.0); Mean Platelet Volume 10.1 fL (9.4-12.4); Platelet Count 156 K/mcL (140-400); Red Blood Count 2.65 M/mcL (4.19-5.50); Red Cell Distribution Width 15.6 % (11.5-14.5); White Blood Count 5.5 K/mcL (4.3-11.1)
[2021-10-09] MEDS: calcitrioL 0.25 MCG CAPSULE PO SCH (10:29)
[2021-10-09] MEDS: Sucralfate 1 GM TABLET PO SCH (10:29)
[2021-10-09] MEDS: Furosemide 40 MG/4 ML VIAL IVP SCH ×2 (10:29→10:43)
[2021-10-09] MEDS: Nicotine 21 MG PATCH.TD24 TD SCH (10:29)
[2021-10-09] MEDS: FLUoxetine 20 MG CAPSULE PO SCH (10:30)
[2021-10-09] MEDS: Isosorbide MONOnitrate (24 HR) 60 MG TAB.ER.24H PO SCH (10:30)
[2021-10-09] MEDS: Aspirin Enteric Coated 81 MG Tablet PO SCH (10:30)
[2021-10-09] MEDS: Nystatin POWDER 30 GM BOTTLE TP SCH (10:30)
[2021-10-09] MEDS: Ranolazine 500 MG TAB.ER.12H PO SCH (10:30)
[2021-10-09] MEDS: allopurinoL 300 MG TABLET PO SCH (10:31)
[2021-10-09 10:43] VITALS: BP 100/62; PULSE 56
[2021-10-09 16:07] VITALS: O2SAT 966
[2021-10-09] MEDS ORDERED: Furosemide 40 MG TABLET PO SCH (17:00)
== END 2021-10-09 17:22 | disposition home or self-care (01) | DRG 280 ==
LOC: 2NENU → SUATTDRO 10:29
PROVIDERS: ADMIT Pharmacist; ATTEND Student in an Organized Health Care Education/Training Program